=== PATIENT | female | born 1940 | race Caucasian/White ===

== ENCOUNTER 2023-09-17 10:59 | Outpatient (RCR) | payer OTHER, SELFPAY | END 2023-09-17 23:59 | disposition home or self-care (01) | LOC: ROT 10:59 | PROVIDERS: ATTENDING PHYSICIAN Orthopaedic Surgery Hand Surgery; PRIMARYCARE PHYSICIAN Family Medicine | DX: Z47.89 Encounter for other orthopedic aftercare (principal); M24.541 Contracture, right hand; Z73.6 Limitation of activities due to disability | CPT/HCPCS: 97010; 97018; 97110; 97140; 97535 ==

== ENCOUNTER → 2023-11-19 10:54 | Outpatient (REF) | payer OTHER, SELFPAY | LOC: RAD 10:54 | PROVIDERS: ATTENDING PHYSICIAN Student in an Organized Health Care Education/Training Program; FAMILY PHYSICIAN Family Medicine | DX: I65.23 Occlusion and stenosis of bilateral carotid arteries (principal); I65.03 Occlusion and stenosis of bilateral vertebral arteries | CPT/HCPCS: 93880 ==

== ENCOUNTER → 2023-12-01 10:10 | Outpatient (REF) | payer OTHER, SELFPAY | LOC: HWWDC 10:10 | PROVIDERS: ATTENDING PHYSICIAN Family Medicine | DX: Z12.31 Encounter for screening mammogram for malignant neoplasm of breast (principal) | CPT/HCPCS: 77063; 77067 ==

== ENCOUNTER → 2024-04-05 09:31 | Outpatient (REF) | payer OTHER, SELFPAY | LOC: HWRAD 09:31 | PROVIDERS: ATTENDING PHYSICIAN Family Medicine | DX: S16.1XXD Strain of muscle, fascia and tendon at neck level, subsequent encounter (principal); S39.012D Strain of muscle, fascia and tendon of lower back, subsequent encounter | CPT/HCPCS: 72050; 72110 ==

== ENCOUNTER → 2024-11-17 12:49 | Outpatient (REF) | payer OTHER, SELFPAY | LOC: HWRAD 12:49 | PROVIDERS: ATTENDING PHYSICIAN Student in an Organized Health Care Education/Training Program; FAMILY PHYSICIAN Family Medicine | DX: I65.23 Occlusion and stenosis of bilateral carotid arteries (principal) | CPT/HCPCS: 93880 ==

== ENCOUNTER → 2024-12-15 09:15 | Outpatient (REF) | payer OTHER, SELFPAY | LOC: HWRAD 09:15 | PROVIDERS: ATTENDING PHYSICIAN Specialist; FAMILY PHYSICIAN Family Medicine | DX: M25.562 Pain in left knee (principal) | CPT/HCPCS: 73564 ==

== ENCOUNTER → 2025-01-14 12:02 | Outpatient (REF) | payer OTHER, SELFPAY | LOC: MRI 3T 12:02 | PROVIDERS: ATTENDING PHYSICIAN Specialist; FAMILY PHYSICIAN Family Medicine; REFERRING PHYSICIAN Thoracic Surgery (Cardiothoracic Vascular Surgery) | DX: M54.16 Radiculopathy, lumbar region (principal); M51.360 Other intervertebral disc degeneration, lumbar region with discogenic back pain only | CPT/HCPCS: 72148 ==

== ENCOUNTER → 2025-02-19 11:16 | Outpatient (REF) | payer OTHER, SELFPAY | LOC: WDC 11:16 | PROVIDERS: ATTENDING PHYSICIAN Family Medicine | DX: Z12.31 Encounter for screening mammogram for malignant neoplasm of breast (principal) | CPT/HCPCS: 77063; 77067 ==

== ENCOUNTER → 2025-03-15 14:10 | Outpatient (REF) | payer OTHER, SELFPAY | LOC: HWRAD 14:10 | PROVIDERS: ATTENDING PHYSICIAN Specialist; FAMILY PHYSICIAN Family Medicine | DX: M25.512 Pain in left shoulder (principal) | CPT/HCPCS: 73030 ==

== ENCOUNTER 2025-03-23 06:13 | Inpatient (IN) | payer OTHER, SELFPAY ==
[2025-03-22 21:16] VITALS: BP 217/88
[2025-03-22 21:19] VITALS: BP 143/85
[2025-03-22 22:34] LABS: Hematocrit 33.7 % (37.0-47.0); Hemoglobin 11.8 g/dL (12.0-16.0); Mean Corp Hgb Conc. 35.0 g/dL (33.0-37.0); Mean Corpuscular Volume 87.5 fL (81.0-99.0); Nucleated Red Blood Cells % 0 %; Platelet Count 166 10^3/uL (130-400); Red Cell Dist. Width 11.9 % (11.5-14.5)
[2025-03-22 22:43] LABS: ALT (SGPT) 15 U/L (0-35); AST (SGOT) 18 U/L (14-36); Albumin 4.6 g/dl (3.5-5.0); Alkaline Phosphatase 70 U/L (38-126); Blood Urea Nitrogen 45 mg/dl (7-17); Calcium 10.4 mg/dl (8.4-10.2); Carbon Dioxide 30 mmol/L (22-30); Chloride 102 mmol/L (98-107); Glucose 142 mg/dl (70-99); Potassium 4.1 mmol/L (3.5-5.1); Sodium 139 mmol/L (135-145); Total Protein 7.5 g/dl (6.3-8.2); eGFR 40.30
[2025-03-22 22:44] VITALS: BMI 26.7
[2025-03-22 22:58] LABS: INR 0.97; PT 13.4 Sec (11.4-14.6)
[2025-03-22 22:59] LABS: Troponin I 0.048 ng/ml
[2025-03-22 23:00] VITALS: BP 210/61
[2025-03-22] MEDS: TRANDATE 20 MG IV (23:06)
[2025-03-22 23:27] VITALS: BP 186/63
[2025-03-22 23:30] VITALS: BP 179/53
--- NOTE | 2025-03-22 23:55 | ED.GENMED ---
History of Present Illness
General
Chief Complaint: Chest Pain
Time Seen by Provider: 03/22/25 22:35
History of Present Illness
History of Present Illness:
84-year-old female with history of hypertension, hyperlipidemia, aortic valve replacement presenting to the emergency department for chest pressure and high blood pressure. Patient reports that symptoms started last night, however worsened this
morning. Pain is in the center of her chest, denies any radiation. Checked her blood pressure today, noted that it was very high which is atypical for her. Notes compliance with her medications. Also reports some dyspnea with exertion, denies
any known history of heart failure. Reports some mild swelling to her lower extremities. Denies fever or cough. Denies abdominal pain or GI symptoms. Denies additional acute medical complaints
Past History
Past History
ED Past Medical History: HTN and Hypercholesterolemia
ED Past Surgical History: None
Phy Exam
Physical Exam
Physical Exam:
General: Well-appearing, no clinical signs of dehydration, nontoxic and in no acute distress
HEENT: protecting airway
Neck: appears supple
CV: Normal heart rate, regular rhythm
Resp: No accessory muscle use, no increased work of breathing, lungs clear to auscultation bilaterally
Abd: Soft and non-distended, no tenderness to palpation
Extremities: No deformities, mild swelling to lower extremities
Neuro: alert, no focal neurologic deficit
: deferred
Rectal: deferred
Psych: Normal affect
Skin: Intact
Scores
Heart Score for Chest Pain Patients
STEMI patient?: No
History: Moderately Suspicious
ECG: Nonspecific Repolarization
Age: >/= 65 years
Risk Factors: >/= 3 Risk Factors or History of CAD
Troponin: >1 - <3 x Normal Limit
Heart Score for Chest Pain Patients: 7
Heart Score Risk: 72.7 % MACE over next 6 weeks
Course
Orders/Labs/Results
Orders:
Orders
03/22/25 21:11
EKG [Electrocardiogram (*1)] Urgent
Reason for Study: Chest Pain
EKG- Treatment ONCE
03/22/25 22:24
Complete Blood Count/With Diff Urgent
Comprehensive Metabolic Panel Urgent
NT-proBNP Urgent
Comment: ADD ON
Prothrombin Time Urgent
Troponin I Urgent
03/22/25 22:59
Labetalol HCl [Trandate] 20 mg IV NOW STA
03/22/25 23:57
Add On- LAB Urgent
Tests Added?: pro-BNP
03/23/25
Ct Chest/Abd/Pel Angio W/Wo Iv Urgent
Reason For Exam: chest pressure, HTN, r/o dissection
03/23/25 00:36
EKG- Treatment ONCE
03/23/25 01:30
Electrocardiogram (*1) Urgent
Reason for Study: Chest Pain
03/23/25 01:35
Troponin I Urgent
03/23/25 02:24
PTT Urgent
Comment: Obtain baseline before beginning heparin infusion if not already collected
Heparin 3,800 units IV NOW STA
Nursing to Place Non Medication Order As Directed
Physician Order: PTT 6 hours after initial start of Heparin infusion
Above order entered?: Yes
03/23/25 02:26
Aspirin Chewable [Low Strength Aspirin] 324 mg PO NOW STA
03/23/25 02:30
Heparin 44569 Units/250 ml 25,000 units in 250 ml IV PER PROTOCOL
Weight to be used for heparin protocol in kilograms (kg):: 64
Protocol:: Cardiac Tx/Acute Coronary
PTT Goal Range to be used:: PTT 73 to 111 seconds
Order type:: Initial
INITIAL Infusion Dose (UNITS/KG/hr) & then follow protocol:: 12 units/kg/hr
Infusion Dose in UNITS/hr & then follow protocol (UNITS/hr):: 750
INFUSION RATE in mL/hr & then follow protocol (mL/hr):: 7.5
PTT less than or equal to 64 seconds:: Increase rate by 200 units/hr (+ 2 mL/hr)
PTT 64.1 to 72.9 seconds:: Increase rate by 100 units/hr (+ 1 mL/hr)
PTT 73 to 111 seconds:: Target Range. No change in rate.
PTT 111.1 to 130.9 seconds:: Decrease rate by 100 units/hr (- 1 mL/hr)
PTT 131 to 199.9 seconds:: HOLD for 1 hr. Then decrease rate by 200 units/hr (- 2 mL/hr)
PTT greater than or equal to 200 seconds:: HOLD for 2 hrs & Notify Provider. Then decrease by 200 units/hr (-
2 mL/hr)
Lab follow-up:: Each change, PTT q6h until 2 consecutive are therapeutic. Then PTT
daily.
03/23/25 09:00
PTT Urgent
Abnormal Lab Results
03/22/25 03/23/25
22:24 01:35
RBC 3.85 L 10^6/uL
(4.20-5.40)
Hgb 11.8 L g/dL
(12.0-16.0)
Hct 33.7 L %
(37.0-47.0)
MPV 10.6 H fL
(7.4-10.4)
Absolute Monos (auto) 0.7 H 10^3/uL
(0.1-0.6)
BUN 45 H mg/dl
(7-17)
Creatinine 1.3 H mg/dL
(0.6-1.0)
Glucose 142 H mg/dl
(70-99)
Calcium 10.4 H mg/dl
(8.4-10.2)
Troponin I 0.048 H* ng/ml 0.063 H* D ng/ml
03/22/25 22:24
03/22/25 22:24
Vital Signs
Initial and Last Documented VS:
Initial Vital Signs
Temp Pulse Resp BP Pulse Ox
98.6 F 73 16 217/88 96
03/22/25 21:16 03/22/25 21:16 03/22/25 21:16 03/22/25 21:16 03/22/25 21:16
Last Documented Vital Signs
Temp Pulse Resp BP Pulse Ox
98.6 F 58 15 179/48 96
03/22/25 21:16 03/23/25 02:45 03/23/25 02:45 03/23/25 02:30 03/23/25 02:45
MDM/Problems Addressed
MDM/Problems Addressed:
84-year-old female with history of hypertension, hyperlipidemia, aortic valve replacement presenting to the emergency department for chest pressure and dyspnea. Vital signs on arrival significant for marked hypertension.
On exam patient is resting comfortably, no acute distress. EKG shows T wave inversion, slightly more pronounced than prior EKG. Concerning story with cardiac risk factors, particularly in the setting of uncontrolled hypertension. Hypertensive
emergency is a consideration. Alerted by nursing that blood pressures are different in both arms. Aortic catastrophe is also consideration. Plan for laboratory analysis including troponin in the setting of ACS. Plan for CT chest abdomen pelvis
to rule out dissection. Labetalol administered for blood pressure control
02:20 -CT without evidence of dissection. Troponin is slightly elevated, and second troponin is further bumped. For this reason concern for NSTEMI. Starting heparin with plan for admission. Additionally, CT does show evidence of focal occlusion
to the right internal iliac artery, will likely need vascular consultation as well
*Pulse Oximetry
SaO2: 96
Oxygen Mode of Delivery: Room air
Patient hypoxic: no
*EKG
Interpreted by ED Provider?: Yes
EKG Intrepretation Date: 03/23/25
EKG Intrepretation Time: 00:00
Interpretation: abnormal
Comparison EKG: changes noted (02/23/23)
Heart Rate: 71
Rate: normal
Rhythm: sinus
[place]: left axis deviation
Interval: normal interval
QRS Pattern: left vent hypertrophy
Ischemia: T-wave inversion
*Critical Care Note
Total Time (30-74mins, 75-104mins- exclusive of procedures): 42
comment:
The high probability of a clinically significant, sudden or life threatening deterioration of the cardiovascular system(s), NSTEMI required my full and direct attention, intervention and personal management. The aggregate critical care time was 42
minutes. This time is in addition to time spent performing reported procedures but includes the following:
[x] Data Review and interpretation
[x] Patient assessment and monitoring of vital signs
[x] Documentation
[x] Medication orders and management
ED Attending Note
-
Portions of this chart may have been created with voice recognition software.� Occasional wrong word or��sound alike� substitutions may have occurred due to the inherent limitations of voice recognition software.
Discharge Plan
Departure
Patient Disposition: Admit
Date of Disposition: 03/23/25
Time of Disposition: 02:42
Presentation/result/management discussed w/ accepting MD/DO: Hospitalist
Patient with high blood pressure during this ER visit?: Yes
Condition: Fair
Discharge Problem:
Non-ST elevation [place] (NSTEMI), Hypertensive emergency
Prescriptions:
No Action
aspirin 81 MG tablet,chewable
81 mg PO DAILY
glucosamine sulfate 2KCl 1,000 MG tablet
1 tab PO DAILY
Caltrate 600-D Plus Minerals 1 EACH tablet,chewable
1 tab PO DAILY@1800
coenzyme Q10 200 MG capsule
200 mg PO DAILY@1200
fexofenadine [Ct] 180 MG tablet
180 mg PO DAILY@1200
ascorbic acid (vitamin C) [Vitamin C] 500 MG tablet
500 mg PO NOON
levothyroxine 50 MCG tablet
50 mcg PO DAILY
telmisartan 80 MG tablet
80 mg PO DAILY
hydrochlorothiazide 25 MG tablet
25 mg PO DAILY
multivitamin with folic acid [Tab-A-Majo] 1 TABLET tablet
1 tab PO DAILY
diltiazem malate 180 mg Tablet Extended Release 24 Hr
180 mg PO DAILY
rosuvastatin 5 mg Tablet
5 mg PO DAILY
Referrals:
Ted Rene DO [Family Provider, Family Practice]
Interventions
Interventions:
*Risk Screen - Suicide Last Done: 03/22/25 21:16
*General Assessment Last Done: 03/22/25 22:44
*Neglect/Abuse Screening Last Done: 03/22/25 21:16
*ED- Fall Risk Assessment Last Done: 03/23/25 01:34
*ED COVID-19 Vaccine History Last Done: 03/23/25 01:34
ED- Cardiac Assessment Last Done: 03/22/25 22:44
Discharge Date and Time
Print Language: VENEZUELAN
[2025-03-23] VITALS (57 sets, daily range): BP systolic 140–231; BP diastolic 39–99; BMI 26.6
[2025-03-23 02:23] LABS: Troponin I 0.063 ng/ml
[2025-03-23] MEDS: LOW STRENGTH ASPIRIN 324 MG PO (02:58)
[2025-03-23] MEDS: HEPARIN 25000 UNITS/250 ML IV (03:00)
[2025-03-23] MEDS: HEPARIN 3800 UNITS IV (03:01)
[2025-03-23 03:44] LABS: APTT 31.8 Sec (23.4-35.0)
--- NOTE | 2025-03-23 05:48 | HPS.HSE ---
Family Physician
-
Family Physician: Ted Rene
Chief Complaint
-
Chest pain
History of Present Illness
Patient is an 84y F with PMH significant for ASCVD, hypertension and CKD who presents to ED complaining of chest pain. Patient states that she noted some chest heaviness in the AM on . Her BP at that time was 170s systolic. She went
about her day, but noted increased pain this evening. BP at that time was 235/80 at home. She denies any associated SOB, diaphoresis or nausea. With persistent chest pain and elevated BP she presented to the ED for further evaluation.
Patient denies any prior h/o [place]. She does have documented vascular disease (carotid disease, PAD, prior TIA).
At the time of my examination she is chest pain free and resting comfortably.
Medical History
Past Medical History
Past Medical History: Reports Other
Additional Past Medical History:
ASCVD (Carotid stenosis, PAD, TIA)
Aortic Stenosis
Hypertension
CKD III
Hypothyroidism
GERD
Past Surgical History: Reports Other
Additional Past Surgical History:
Cataracts
Aortic Valve Replacement
Right Rotator Cuff Repair
HALEY
Appendectomy
Sinus Surgery
Social History
Tobacco: Non-smoker
Alcohol: Occasional
Drug: None
Family History
Family History: Other (Father: of [place] at age 71. Mother: of [place] at age 57.)
Allergies / Home Medications
Allergies reflects when Allergies were last updated in [employer].
Home Medications with original date entered in [employer]
Allergy/Medication List:
Allergies
Allergy/AdvReac Type Severity Reaction Status Date / Time
No Known Allergies Allergy Verified 03/22/25 21:18
Home Medications
aspirin 81 mg chewable tablet 81 mg PO DAILY 01/01/15
calcium 600 mg-D3 800 unit-mag 40 oi-jcgq-onkx-vega-boron chew tablet (Caltrate 600-D Plus Minerals) 1 tab PO DAILY@1800 01/01/15
coenzyme Q10 200 mg capsule 200 mg PO DAILY@1200 01/01/15
glucosamine sulfate 2KCl 1,000 mg tablet 1 tab PO DAILY 01/01/15
ascorbic acid (vitamin C) 500 mg tablet (Vitamin C) 500 mg PO NOON 01/29/22
fexofenadine 180 mg tablet (Ct) 180 mg PO DAILY@1200 01/29/22
hydrochlorothiazide 25 mg tablet 25 mg PO DAILY 01/29/22
levothyroxine 50 mcg tablet 50 mcg PO DAILY 01/29/22
multivitamin with folic acid 400 mcg tablet (Tab-A-Majo) 1 tab PO DAILY 01/29/22
telmisartan 80 mg tablet 80 mg PO DAILY 01/29/22
diltiazem malate 180 mg tablet,extended release 24 hr 180 mg PO DAILY 03/23/25
rosuvastatin 5 mg tablet 5 mg PO DAILY 03/23/25
Review of Systems
-
History Source: Patient
A 12 point ROS was completed and negative except as noted: Yes
Constitutional: Denies Fever or Chills
Respiratory: Denies Cough or Trouble Breathing
Cardiac: Reports Chest Pain; Denies Palpitations
Abdomen/GI: Denies Abdominal Pain, Nausea, Vomiting or Diarrhea
: Denies Dysuria or Frequency
Musculoskeletal: Denies Joint Pain or Edema
Neurological: Denies Dizzy or Headache
Physical Exam
Vital Signs
Vital Signs
Temp Pulse Resp BP Pulse Ox
98.6 F 56 13 178/58 93
03/22/25 21:16 03/23/25 04:00 03/23/25 04:00 03/23/25 04:00 03/23/25 04:00
Physical Exam
General: Other (84y F in no acute distress.)
HEENT: Moist mucous membranes and PERRLA
Respiratory: Clear; No Wheezes, Rales or Rhonchi
Cardiac: S1/S2, Regular Rhythm and Murmur (IV/ MARY)
GI: Soft, Non Tender, Non Distended and Normal Bowel Sounds
Musculoskeletal: No Clubbing, No Cyanosis and No Edema
Neuro: AO x 3
Laboratory Results
-
03/22/25 22:24
03/22/25 22:24
Laboratory Results
PT 13.4 Sec (11.4-14.6) 03/22/25 22:24
INR 0.97 03/22/25 22:24
APTT 31.8 Sec (23.4-35.0) 03/23/25 02:55
Total Bilirubin 0.6 mg/dl (0.2-1.3) 03/22/25 22:24
AST 18 U/L (14-36) 03/22/25 22:24
ALT 15 U/L (0-35) 03/22/25 22:24
Alkaline Phosphatase 70 U/L (38-126) 03/22/25 22:24
Troponin I 0.063 ng/ml H* D 03/23/25 01:35
Impression/Plan
-
A/P: Patient is an 84y F with PMH significant for ASCVD, CKD and hypertension who presents to ED complaining of chest pain and hypertension.
Hypertensive Emergency
- Admit to IMU for further evaluation and treatment.
- Patient with markedly elevated BP, abnormal troponin and chest pain.
- Begin IV NTG and titrate for BP control.
- Follow for changes in symptoms.
- Continue usual home meds and adjust as needed.
ASCVD
- EKG with non-specific ST-T wave changes.
- Troponin 0.048 increased to 0.063. Now chest pain free.
- Follow troponin to peak.
- Potentially all due to BP, but need to rule out occlusive CAD given known history.
- IV heparin for now.
- Cardiology evaluation for additional recommendations.
CKD III
- Stable. SCr is at / near known baseline.
- Follow for changes.
DVT Prophylaxis: On IV heparin
Code Status: Full
--- NOTE | 2025-03-23 08:27 | EDRN ---
Report given to NIC Maharaj in ICU. Patient taken to room 3362 on monitor with Heparin drip infusing at 750 units/HR by ED RN. Family with patient.
[2025-03-23] MEDS: SYNTHROID 50 MCG PO (08:53)
[2025-03-23] MEDS: NITROGLYCERIN PREMIX 250 IV (08:54)
[2025-03-23] MEDS: CARDIZEM CD 180 MG PO (09:01)
[2025-03-23] MEDS: COZAAR 100 MG PO (09:02)
[2025-03-23] MEDS: CRESTOR 5 MG PO (09:02)
[2025-03-23] MEDS: LOW STRENGTH ASPIRIN 81 MG PO (09:02)
--- NOTE | 2025-03-23 09:25 | PTCARENOTE ---
Rec'd pt from the Ed via stretcher at 0835. Rec'd pt awake alert and oriented. Overall states she feels better. Denies headache or dizziness. Denies pain or discomfort. VILLARREAL. Speech is clear. Skin is orellana/pink wm and dry. Respirs are unlabored on RA
with sats of 94-95%. BS are clear. Monitor SR- SBrady in the 50-60's. Denies chest pain or tightness. + pulses. PT and DP pulses with the doppler. Tr ankle/le edema. VS as documented. BP L arm on admission is 184/94 and R arm 231/73. Per pt -
nephrology told her to use the R arm for BP's. As such Am Cozaar and Cardizem given at 0902. IV Nitroglycerin ordered and started at 0855 at 5 mcg with goal BP of <160. Infusing via L wrist IV site along with IV Heparin at 750 units/hr. Labs sent
as ordered. Abd is soft with + BS. Denies nausea. Currently NPO excepts sips and meds. On BSC for yellow urine. Capped int intact LAC. Site wnl. Daughters at the bedside. Pt oriented to room and plan of care reviewed with pt and family. Call renner in
reach.
[2025-03-23 09:42] LABS: APTT 86.0 Sec (23.4-35.0)
[2025-03-23 10:02] LABS: Troponin I 0.054 ng/ml
--- NOTE | 2025-03-23 10:30 | PTCARENOTE ---
At 1000 Nitro at 10 mcg for BP 180/71. Dr. Duvall in and updated. Will titrate NTG for Bp 160-180. No other changes.
--- NOTE | 2025-03-23 11:45 | PTCARENOTE ---
Dr. Duvall in to see pt. Goal BP is 160-180 - BP currently 163/57- IV NTG turned off. No complaints offered. Visting with family
--- NOTE | 2025-03-23 11:51 | CON.CAR ---
Consultation
Consultation Request
Date/Time Consultation Requested: 03/23/25
Date/Time Consultation Performed: 03/23/25
Requesting Provider: Dr. Up
Performing Provider: Dr Gandara (Primary cardiology [facility])
Reason for Consultation: htn and cp
Medical History
-
Chief Complaint: cp and high bp
History of Present Illness:
84-year-old female with a past medical history of PAD, TIA, [place], aortic stenosis s/p AVR at [facility] in 2014, hypertension, CKD 3 and GERD presented for evaluation of chest pain and HTN. Patient reports that she has been checking bp at home on the left
arm. She recently saw Dr Mcconnell who detected unequal arm BPs and she was told stop checking on theleft arm and only on the right. She noted markedly elevated blood pressure at home at 235/80. With this she had a mild chest pressure. Given
persistent chest pain and elevated blood pressure she presented for evaluation. She was admitted for hypertensive emergency and possible ACS. She was appropriately started on a heparin drip and nitroglycerin drip. CP is no longer present while off
nitro gtt and bp improved to 160's. Troponin peaked at 0.063.
Past Medical History
Past Medical History: GERD, HTN, Renal Failure and Other (TIA, carotid stenosis )
Social History
Tobacco: Non-Smoker
Alcohol: None
Family History
Family History: Early CAD (Mom DC at 57)
Allergies / Home Medications
Allergy/AdvReac Type Severity Reaction Status Date / Time
No Known Allergies Allergy Verified 03/22/25 21:18
�Medication �Instructions �Recorded �Confirmed �Type
aspirin 81 mg chewable tablet 81 mg PO DAILY 01/01/15 03/23/25 History
calcium 600 mg-D3 800 unit-mag 40 1 tab PO DAILY@1800 01/01/15 03/23/25 History
sv-xdtg-nbys-vega-boron chew
tablet (Caltrate 600-D Plus
Minerals)
coenzyme Q10 200 mg capsule 200 mg PO DAILY@1200 01/01/15 03/23/25 History
glucosamine sulfate 2KCl 1,000 mg 1 tab PO DAILY 01/01/15 03/23/25 History
tablet
ascorbic acid (vitamin C) 500 mg 500 mg PO NOON 01/29/22 03/23/25 History
tablet (Vitamin C)
fexofenadine 180 mg tablet 180 mg PO DAILY@1200 01/29/22 03/23/25 History
(Ct)
hydrochlorothiazide 25 mg tablet 25 mg PO DAILY 01/29/22 03/23/25 History
levothyroxine 50 mcg tablet 50 mcg PO DAILY 01/29/22 03/23/25 History
multivitamin with folic acid 400 1 tab PO DAILY 01/29/22 03/23/25 History
mcg tablet (Tab-A-Majo)
telmisartan 80 mg tablet 80 mg PO DAILY 01/29/22 03/23/25 History
diltiazem malate 180 mg 180 mg PO DAILY 03/23/25 03/23/25 History
tablet,extended release 24 hr
rosuvastatin 5 mg tablet 5 mg PO DAILY 03/23/25 03/23/25 History
Review of Systems
-
All other systems: Negative unless noted
Physical Exam
Vital Signs
Temp Pulse Resp BP Pulse Ox
98.7 F 62 12 180/71 93
03/23/25 11:31 03/23/25 10:00 03/23/25 10:00 03/23/25 10:00 03/23/25 10:00
Lab Results
03/22/25 22:24
03/22/25 22:24
Troponin I 0.054 ng/ml H* 03/23/25 09:21
Rvw-Q-Xlffapbzrie Pept Cancelled 03/22/25 23:56
Physical Exam
General: Well Developed, Well Nourished, No Apparent Distress and Comfortable
HEENT: Normocephalic
Respiratory: Clear; Negative Wheezes, Crackles or Rhonchi
Cardiac: S1/S2, Regular Rhythm, Murmur (2/6 systolic murmur at rusb in the neck. ) and Other (bruit along the left clavicle none on the right)
Skin: Warm and Dry
Neuro: AO x 3
Impression / Plan
-
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
recently saw Dr. Lindsey who suspects left-sided subclavian artery stenosis presented with hypertensive emergency.
Hypertensive emergency:
This is a threat to life
This improved with nitroglycerin drip, oral diltiazem, oral losartan and a single dose of IV labetalol.
Nitroglycerin drip has been stopped.
Currently blood pressure 160s, this is improved from 225 yesterday.
Will continue to monitor today and add additional agents as needed. Home hydrochlorothiazide ordered for tomorrow.
Do not want to overcorrect too quickly.
Check blood pressures in the right arm, given concern of left subclavian stenosis.
Chest pain: Symptom of hypertensive emergency. Troponin peaked at 0.063. She is not having any angina. Do not suspect ACS, will stop IV heparin especially given the risk with hypertensive emergency.
�That said she is a vasculopath, would recommend noninvasive testing as an outpatient.
Nonischemic myocardial injury in the setting of hypertensive emergency:
Treat hypertensive emergency.
Peripheral arterial disease: Carotid stenosis, renal artery stenosis, occluded iliac
Question subclavian stenosis on the left: I have asked radiology to review the study from earlier today and assess. Interestingly, carotid ultrasound in October showed antegrade flow in the vertebral arteries.
- Would be more aggressive with secondary prevention (report of TIA)
-Will check a lipid profile
-Will likely intensify statin
CKD: Stage III, follows with Dr. Mcconnell.
CCT 57 minutes
Data Reviewed
-
EKG: Tracing Personally Visualized and interpreted (EKG shows normal sinus rhythm left anterior fascicular block, LVH with strain and left axis deviation.)
CT Scan: Image Personally Visualized and interpreted (CT C?A?P: high-grade stenosis at the ostium of the left renal artery with an atrophic left kidney. 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 There is occlusion
of the mid right internal iliac artery. Cerebral u/s 11/17/24Rt moderate [place], normal vertebral flow b/l)
Medical Tests (Nuc Med, Echo etc): Report Reviewed by me (Cath 01/02/2015, ao 158/60 LV 182/18 with a mean gradient of 42 concerning for severe aortic stenosis, coronary angiography showed mild distal tapering of the LAD without focal area of
stenosis.)
[2025-03-23 12:30] LABS: Glycohemoglobin (HgbA1c) 6.0 % (4.0-5.6)
--- NOTE | 2025-03-23 13:13 | W.CON.NEPH ---
Addendum entered and electronically signed by Alvin Morrison MD 03/23/25 15:22:
Consultation below reviewed.
84-year-old female met with Dr. Mcconnell for the first time on 04-13 for hypertension. She was noted to have asymmetric blood pressure readings right versus left with the right greater than the left. It was recommended at that time for her to take
blood pressure only on the right side. She maintained her multidrug regimen for her hypertension. When she checked her blood pressure more recently it was found to be elevated over 200 systolic and she also had concurrent chest pressure. She came
to the emergency room for hypertensive emergency. She was given intravenous medications and ultimately nitroglycerin drip though she was only on this for 1 hour. It was discontinued because her blood pressure had fallen to 140 systolic. Is now
running 186 systolic at this time. She remains on statin therapy for diffuse significant atherosclerotic cardiovascular disease though fortunately stable. She is also on Synthroid for hypothyroidism which is also stable.
Imaging studies have shown significant left renal artery stenosis as well as diffuse arterial disease.
I concur with the physical exam.
Older laboratory values were reviewed in the [facility] system. Creatinine has remained stable around 1.3 based on past labs as well.
CT of the chest abdomen pelvis with IV contrast was reviewed by me. High-grade stenosis of the left renal artery was noted.
Impression
Hypertensive emergency
Chronic kidney disease stage IIIa
Troponin elevation
Carotid stenosis
PAD
History of TIA
Severe Aortic Stenosis s/p replacement
Primary hypertension
Hypothyroidism
GERD
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
Plan
Permissive hypertension today
Close at lower goal for blood pressure closer to 160 systolic tomorrow
As needed medications with hydralazine and labetalol
Change losartan to valsartan, may return to telmisartan as an outpatient
May use additional diltiazem if necessary.
Secondary workup will be ordered though I expect it to be negative outside of obvious left renal artery stenosis
Unfortunately given significant atherosclerotic cardiovascular disease I doubt that renal artery stenting of the left side would be beneficial as she probably has small vessel disease as well in the kidney
Follow BMP
Critical care time spent 35 minutes
Original Note:
Consultation
-
Date/Time Consultation Requested: 03-23-25
Date/Time Consultation Performed: 03-23-25
Requesting Provider: Dr. Varun Up
Performing Provider: Dr. Alvin Morrison
Reason for Consultation: Hypertensive emergency; CKD
Medical History
-
Chief Complaint: Chest pressure and high blood pressure
History of Present Illness:
Chelsea Macias, 84-year-old with chronic kidney disease stage IIIa, left renal atrophy and hypertension, came to the hospital on 03-22-25 with chest pressure and high blood pressure at home of 235/80. She was found to be in hypertensive emergency
and given labetalol in the emergency. Started on a nitroglycerine drip in the ICU. She is known to nephrology and had recently established with Dr. Mcconnell on 03-21-25. She has a history of hypertension since her 50s, treated with a multi-drug
regimen, which has remained unchanged for the past few years. She was also recently found to have blood pressure reading discrepancies in her arms; right > left. Renal function at baseline on admission, and reports chest pressure resolution.
Asymptomatic at the time of consultation.
Past Medical History
Past Medical History: Other (Carotid stenosis, PAD, TIA, severe Aortic Stenosis, Hypertension, CKD IIIa, Hypothyroidism, GERD)
Past Surgical History: Other (Cataracts, Aortic Valve Replacement, Right Rotator Cuff Repair, HALEY, Appendectomy, Sinus Surgery)
Social History
Tobacco: Non-Smoker
Alcohol: Occasional
Drug: None
Employment: Retired
Family History
Family History: CAD (Mother - of early-ID at 57; Father - of ID at 71)
Allergies / Home Medications
Allergy/AdvReac Type Severity Reaction Status Date / Time
No Known Allergies Allergy Verified 03/22/25 21:18
�Medication �Instructions �Recorded �Confirmed �Type
aspirin 81 mg chewable tablet 81 mg PO DAILY 01/01/15 03/23/25 History
calcium 600 mg-D3 800 unit-mag 40 1 tab PO DAILY@1800 01/01/15 03/23/25 History
ko-hkdt-tncb-vega-boron chew
tablet (Caltrate 600-D Plus
Minerals)
coenzyme Q10 200 mg capsule 200 mg PO DAILY@1200 01/01/15 03/23/25 History
glucosamine sulfate 2KCl 1,000 mg 1 tab PO DAILY 01/01/15 03/23/25 History
tablet
ascorbic acid (vitamin C) 500 mg 500 mg PO NOON 01/29/22 03/23/25 History
tablet (Vitamin C)
fexofenadine 180 mg tablet 180 mg PO DAILY@1200 01/29/22 03/23/25 History
(Ct)
hydrochlorothiazide 25 mg tablet 25 mg PO DAILY 01/29/22 03/23/25 History
levothyroxine 50 mcg tablet 50 mcg PO DAILY 01/29/22 03/23/25 History
multivitamin with folic acid 400 1 tab PO DAILY 01/29/22 03/23/25 History
mcg tablet (Tab-A-Majo)
telmisartan 80 mg tablet 80 mg PO DAILY 01/29/22 03/23/25 History
diltiazem malate 180 mg 180 mg PO DAILY 03/23/25 03/23/25 History
tablet,extended release 24 hr
rosuvastatin 5 mg tablet 5 mg PO DAILY 03/23/25 03/23/25 History
Review of Systems
-
History Source: Patient
All other systems: Negative unless noted
Constitutional: No Symptoms
EENT: No Symptoms
Respiratory: No Symptoms
Cardiac: No Symptoms
Abdomen/GI: No Symptoms
: No Symptoms
Musculoskeletal: No Symptoms
Skin: No Symptoms
Neurological: No Symptoms
Endocrine: No Symptoms
Hematologic/Lymphatic: No Symptoms
Physical Exam
Vital Signs
Vital Signs
Temp Pulse Resp BP Pulse Ox
98.7 F 68 16 152/66 93
03/23/25 11:31 03/23/25 12:30 03/23/25 12:30 03/23/25 12:15 03/23/25 12:00
Lab Results
WBC 7.8 10^3/uL (4.8-10.8) 03/22/25 22:24
RBC 3.85 10^6/uL (4.20-5.40) L 03/22/25 22:24
Hgb 11.8 g/dL (12.0-16.0) L 03/22/25 22:24
Hct 33.7 % (37.0-47.0) L 03/22/25 22:24
Plt Count 166 10^3/uL (130-400) 03/22/25 22:24
Sodium 139 mmol/L (135-145) 03/22/25 22:24
Potassium 4.1 mmol/L (3.5-5.1) 03/22/25 22:24
Chloride 102 mmol/L (98-107) 03/22/25 22:24
Carbon Dioxide 30 mmol/L (22-30) 03/22/25 22:24
BUN 45 mg/dl (7-17) H 03/22/25 22:24
Creatinine 1.3 mg/dL (0.6-1.0) H 03/22/25 22:24
eGFR 40.30 03/22/25 22:24
Glucose 142 mg/dl (70-99) H 03/22/25 22:24
Calcium 10.4 mg/dl (8.4-10.2) H 03/22/25 22:24
Ipf-M-Vtzhiisrzxl Pept Cancelled 03/22/25 23:56
Albumin 4.6 g/dl (3.5-5.0) 03/22/25 22:24
Physical Exam
General: Awake, Alert, Oriented and No Distress
HEENT: Anicteric
Respiratory: Clear and Nonlabored Respirations
Cardiac: S1/S2, Regular Rate/Rhythm and Murmur (MARY - III/)
Abdomen: Soft, Nontender, Nondistended and No Hepatosplenomegaly
Genito-urinary: No Costovertebral Tender
Musculoskeletal: No Clubbing, No Cyanosis and No Edema
Skin: No Rash and No Bruising
Neuro: Nonfocal/Grossly Intact
Psych: Insight/judgement good
Assessment/Plan
-
Impression
Hypertensive emergency
Chronic kidney disease stage IIIa
Troponin elevation
Carotid stenosis
PAD
History of TIA
Severe Aortic Stenosis s/p replacement
Primary hypertension
Hypothyroidism
GERD
Plan
Renal function remains at baseline.
Permissive hypertension for a goal of SBP 160-180 for now.
PRN labetalol/hydralazine for SBP > 190.
Switch losartan to valsartan; better potency/closer to telmisartan.
Continue diltiazem and hydrochlorothiazide.
Check renal artery Doppler, renin/marvin and metanephrines.
Follow BMP.
Please use only the right arm for BP measurements.
--- NOTE | 2025-03-23 14:07 | W.PN.HOSP.TC ---
Today's Communication/Plan
-
wean off ggt
renal arterial dopplers - may need vascular consulted
renal consulted for assistance in htn regimen
ECHO
stop hep ggt, start hsq
Assessment / Plan
Assessment / Plan
Physical Exam
General: Other (84y F in no acute distress.)
HEENT: Moist mucous membranes and PERRLA
Respiratory: Clear; No Wheezes, Rales or Rhonchi
Cardiac: S1/S2, Regular Rhythm and Murmur (IV/ MARY)
GI: Soft, Non Tender, Non Distended and Normal Bowel Sounds
Musculoskeletal: No Clubbing, No Cyanosis and No Edema
Neuro: AO x 3
A/P: Patient is an 84y F with PMH significant for ASCVD, CKD and hypertension who presents to ED complaining of chest pain and hypertension.
Hypertensive Emergency
- Suspect 2/2 to high grade stenosis of the left renal artery
- -Renal Dopplers ordered
- Placed back on Dilt and HCTZ, cozaar
- ARB as per renal
- Renal consulted
- May need to engage vascular - f/u with Renal
-F/u ECHO
-F/u TFTs
Elevated Troponin
-most likely non ischemic myocardial injury 2/2 to hypertensive emergency
-stopped hep ggt
-continue asa
-ECHO
-statin
CKD III
- Stable. SCr is at / near known baseline.
- Follow for changes.
- Renal consulted
#extensive mixed density atherosclerotic plaque of the abdominal aorta.
#prominent noncalcified atherosclerotic plaque of the thoracic aorta with resultant multifocal mild stenosis.
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
- Vascular consulted
DVT Prophylaxis: HSQ
Code Status: Full
Total time spent on today's encounter was 51 minutes which included time spent in counseling the patient/family regarding diagnosis and treatment plan as listed above, goals of care, and symptom management. Case was discussed with nursing staff,
specialists, and care coordinators/case management. All labs and imaging personally reviewed by me. Remainder the time spent in detailed review of previous records, lab data, imaging, and other medical provider documentation.
Anticipated Discharge: 24 - 48 hours
Subjective/Interval History
-
Date of Service: March 23, 2025
chest pressure resolved; bp improving with nitro ggt and bp meds
Objective Data
-
Labs:
Laboratory Results
03/22/25 03/23/25 03/23/25
22:24 02:55 09:21
WBC 7.8
Hgb 11.8 L
Hct 33.7 L
Plt Count 166
APTT 31.8 86.0 H
03/23/25
15:30
WBC
Hgb
Hct
Plt Count
APTT Pending
Vital Signs:
Vital Signs
Temp Pulse Resp BP Pulse Ox
98.7 F 68 16 152/66 93
03/23/25 11:31 03/23/25 12:30 03/23/25 12:30 03/23/25 12:15 03/23/25 12:00
I&O
03/22/25 03/23/25 03/24/25
06:59 06:59 06:59
Intake Total 140.6 / 140.6
Output Total 300 / 300
Balance -159.4 / -159.4
Review of Systems
-
History Source: Patient
All other systems: Not reviewed unless documented
Data Reviewed
-
CT Scan: Report Reviewed by me
Labs: Labs Reviewed by me
--- NOTE | 2025-03-23 14:40 | PTCARENOTE ---
Pt with overall good appetite for lunch. Denies discomfort. Assisted oob to the bathroom to void yellow urine. Did own oral/denture care. Currently resting back in bed. BP 186/54- Dr. Morrison in to see pt and aware of BP -will watch for now. NTG drip
remains off. Call renner in reach. Family at the bedside.
--- NOTE | 2025-03-23 15:00 | PTCARENOTE ---
Labs sent per md order. Heparin gtt dc'd per md order. No other changes
[2025-03-23] MEDS: HEPARIN 5000 UNITS SC (16:56)
--- NOTE | 2025-03-23 17:21 | PTCARENOTE ---
Remains resting. No changes in assessment. No complaints.
[2025-03-23] MEDS: APRESOLINE 10 MG IV (18:20)
[2025-03-23] MEDS: FLUSH (NSS) 1 FLUSH IV (18:21)
--- NOTE | 2025-03-23 18:25 | PTCARENOTE ---
Good appetite for dinner. Bp syst 191 at 1800 - pt medicated with Hydralazine 10 mg IV at 1820. No other changes.
--- NOTE | 2025-03-23 19:30 | PTCARENOTE ---
OOb to the bathroom to void and had a mod formed brown BM. Gait is steady with no c/o dizziness. Bp post hydralazine 174 syst and then currently 187 syst. Currently resting back in bed.
--- NOTE | 2025-03-23 20:33 | PTCARENOTE ---
Received patient AAOx3, following commands, denying pain. NS 60s, BP 150s/40s, afebrile, no edema. Weak pedal pulses b/l. BP on right arm higher than left, following recommendation to take BP on right by Dr. Unger. 95% on room air, lung sounds
clear. Patient uses commode. Skin intact, PIVs patent, WNL. Call renner within reach.
[2025-03-24] VITALS (37 sets, daily range): BP systolic 111–200; BP diastolic 34–74; BMI 26.4
[2025-03-24] MEDS: HEPARIN 5000 UNITS SC ×4 (00:13→23:44)
[2025-03-24 03:48] LABS: Hematocrit 31.6 % (37.0-47.0); Hemoglobin 10.8 g/dL (12.0-16.0); Mean Corp Hgb Conc. 34.2 g/dL (33.0-37.0); Mean Corpuscular Volume 89.8 fL (81.0-99.0); Platelet Count 158 10^3/uL (130-400); Red Cell Dist. Width 12.0 % (11.5-14.5)
[2025-03-24 04:17] LABS: ALT (SGPT) 14 U/L (0-35); AST (SGOT) 21 U/L (14-36); Albumin 4.1 g/dl (3.5-5.0); Alkaline Phosphatase 66 U/L (38-126); Blood Urea Nitrogen 38 mg/dl (7-17); Calcium 10.0 mg/dl (8.4-10.2); Carbon Dioxide 26 mmol/L (22-30); Chloride 106 mmol/L (98-107); Estimated Creatinine Clearance 29 ml/min; Glucose 155 mg/dl (70-99); HDL Cholesterol 70 mg/dl; LDL Cholesterol, Calculated 63 mg/dl; Magnesium 2.0 mg/dl (1.6-2.3); Potassium 4.3 mmol/L (3.5-5.1); Sodium 139 mmol/L (135-145); Total Protein 6.6 g/dl (6.3-8.2); Very Low Density Lipoprotein 16 mg/dl (0-30); eGFR 44.36
[2025-03-24] MEDS: SYNTHROID 50 MCG PO (05:08)
[2025-03-24] MEDS: CARDIZEM CD 180 MG PO (08:02)
[2025-03-24] MEDS: LOW STRENGTH ASPIRIN 81 MG PO (08:02)
[2025-03-24] MEDS: DIOVAN 320 MG PO (08:03)
[2025-03-24] MEDS: CRESTOR 5 MG PO (08:04)
[2025-03-24] MEDS: ORETIC 25 MG PO (08:05)
--- NOTE | 2025-03-24 08:31 | W.PN.CD ---
Addendum entered and electronically signed by Boris Begum MD 03/24/25 12:06:
Patient seen and examined in collaboration with REAL ESTATE TRANSACTION MANAGER; agree with below.
- 84-year-old female with bioprosthetic aortic valve (2024), PVD, hypertension, hyperlipidemia, and CKD presenting with hypertensive crisis.
- Blood pressure remains mildly elevated/labile.
- Hydrochlorothiazide being resumed today.
- Continue diltiazem HCl 180 mg daily and valsartan 320 mg daily.
- Echocardiogram on Wednesday.
Original Note:
Today's Communication / Plan
-
Follow BP.
SBP pre am meds ~190mmHg
Impression / Plan
-
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
CKD who recently saw Dr. Mcconnell who suspects left-sided subclavian artery stenosis presented with hypertensive emergency.
Outpatient city editor: Dr. Miranda
Hypertensive emergency:
-This is a threat to life
-Current meds: Dilt 180mg, Valsartan 320mg & home HCTZ 25mg ordered for today
-Do not want to overcorrect too quickly. SBP above goal.
-Check blood pressures in the right arm, given concern of left subclavian stenosis.
-High-grade stenosis at the ostium of the left renal artery with an atrophic left kidney
-Secondary workup pending, ordered by Nephrology
Chest pain
-Symptom of hypertensive emergency
-Troponin peaked at 0.063. She is not having any angina. Do not suspect ACS, will stop IV heparin especially given the risk with hypertensive emergency.
�That said she is a vasculopath, would recommend noninvasive testing as an outpatient.
-TTE Wednesday
Nonischemic myocardial injury in the setting of hypertensive emergency:
-Peak trop 0.063, EKG with LVH
-Treat hypertensive emergency.
Peripheral arterial disease: Carotid stenosis, renal artery stenosis, occluded iliac
-Question subclavian stenosis on the left. Radiology will re-review the study today. Interestingly, carotid ultrasound in October showed antegrade flow in the vertebral arteries.
-Would be more aggressive with secondary prevention (report of TIA)
-LDL 63, increase rosuvastatin to 10mg
CKD Stage III, follows with Dr. Mcconnell
SUBJECTIVE:
Denies CP and shortness of breath.
Physical Exam
Vital Signs/Labs
Vital Signs
Temp Pulse Resp BP Pulse Ox
98 F 70 17 193/73 94
03/24/25 03:39 03/24/25 08:05 03/24/25 06:30 03/24/25 08:05 03/24/25 06:30
03/23/25 03/24/25 03/25/25
06:59 06:59 06:59
Actual Weight 64 kg 63.4 kg
03/24/25 03:36
03/24/25 03:36
PT 13.4 Sec (11.4-14.6) 03/22/25 22:24
INR 0.97 03/22/25 22:24
APTT Cancelled 03/23/25 15:30
Magnesium 2.0 mg/dl (1.6-2.3) 03/24/25 03:36
Triglycerides 84 mg/dl (10-149) 03/24/25 03:36
LDL Cholesterol, Calc 63 mg/dl 03/24/25 03:36
VLDL Cholesterol, Calc 16 mg/dl (0-30) 03/24/25 03:36
HDL Cholesterol 70 mg/dl 03/24/25 03:36
03/22/25 03/22/25
22:24 23:56
Dur-O-Rlvuwanvkdk Pept 2280 Cancelled
LAB Results
03/22/25 03/23/25 03/23/25
22:24 01:35 09:21
Troponin I 0.048 H* 0.063 H* D 0.054 H*
03/23/25 03/23/25
14:28 20:28
Troponin I Cancelled Cancelled
Physical Exam
Constitutional: No acute distress and Comfortable
EENT: Anicteric and Moist mucous membranes
Cardiovascular: Rhythm & rate is regular and Pedal edema is absent
Respiratory: Respiratory effort normal and Lungs clear to auscul.
GI: Soft, Distention absent, Flat and Non tender
Neuro/Psych: AO x 3
Other: Skin (warm and dry)
Data Reviewed
-
Date of Service: March 24, 2025
EKG: Report Reviewed by me
Labs: Labs Reviewed by me
Old Records: Reviewed
--- NOTE | 2025-03-24 08:44 | W.PN.NEPH.PH ---
Today's Communication / Plan
-
follow BMP
Assessment/Plan
-
Impression
Hypertensive emergency
Chronic kidney disease stage IIIa
Troponin elevation
Carotid stenosis
PAD
History of TIA
Severe Aortic Stenosis s/p replacement
Primary hypertension
Hypothyroidism
GERD
Plan
continue BP meds, may need diltizem 180 BID
follow BMP
secondary HTN workup
-
-
Date of Service: March 24, 2025
CC / HPI / ROS
-
Chief Complaint:
HTN
History of Present Illness:
BP high this am, overall stable
Cr stable 1.3
Hgb stable 10.8
Review of Systems:
no CP/SOB
Labs
-
Labs:
WBC 6.8 10^3/uL (4.8-10.8) 03/24/25 03:36
RBC 3.52 10^6/uL (4.20-5.40) L 03/24/25 03:36
Hgb 10.8 g/dL (12.0-16.0) L 03/24/25 03:36
Hct 31.6 % (37.0-47.0) L 03/24/25 03:36
Plt Count 158 10^3/uL (130-400) 03/24/25 03:36
Sodium 139 mmol/L (135-145) 03/24/25 03:36
Potassium 4.3 mmol/L (3.5-5.1) 03/24/25 03:36
Chloride 106 mmol/L (98-107) 03/24/25 03:36
Carbon Dioxide 26 mmol/L (22-30) 03/24/25 03:36
BUN 38 mg/dl (7-17) H 03/24/25 03:36
Creatinine 1.2 mg/dL (0.6-1.0) H 03/24/25 03:36
eGFR 44.36 03/24/25 03:36
Glucose 155 mg/dl (70-99) H 03/24/25 03:36
Calcium 10.0 mg/dl (8.4-10.2) 03/24/25 03:36
Pjm-W-Jjshgufrtlz Pept Cancelled 03/22/25 23:56
Albumin 4.1 g/dl (3.5-5.0) 03/24/25 03:36
Physical Exam
-
Vital Signs:
Vital Signs
Temp Pulse Resp BP Pulse Ox
98 F 60 12 170/61 95
03/24/25 03:39 03/24/25 08:36 03/24/25 08:36 03/24/25 08:36 03/24/25 07:30
Cardiovascular:: Regular rate and rhythm
Respiratory:: Bilateral: CTA
Lung Excursion:: Normal
Abdomen:: Nontender and Soft
Bowel Sounds:: Normal
Extremity Edema:: None: Bilateral:
--- NOTE | 2025-03-24 08:50 | PTCARENOTE ---
Rec'd pt at 0745 awake alert and oriented resting in bed. States she feels good and did get some sleep last night. Denies any pain currently. Speech is clear. Denies any headache or dizziness. VILLARREAL. Skin is orellana/pink wm and dry. Respirs are unlabored
on RA with sats of 95%. BS are clear. No cough noted. Monitor SR. VS as documented. After doing am care BP 193/73- all am meds given. Using R arm for BP's per pt and nephrology. + pulses. PT and DP pulses with the doppler. No edema noted this am.
Denies chest pain. Extrem are warm. Abd is soft with + BS. Denies nausea. Voiding yellow urine in the toilet. Capped ints intact L wrist and L AC. Assited to the bathroom this am- pt mostly ambulated herself without difficulty. States she normally
is an early riser and uses her stationary bike at home. Did own am care and oral care. Currently resting oob in the chair. Awaitig breakfast. Call renner in reach.
--- NOTE | 2025-03-24 09:25 | PTCARENOTE ---
Dr. Morrison in to see pt as well as Kirstie Dewey CLINICAL ENGINEERING DIRECTOR from Cardiology. Multiple labs sent as ordered. Remains resting oob in the chair. Call renner in reach
--- NOTE | 2025-03-24 11:00 | CON.VAS ---
Consultation
Consultation Request
Date/Time Consultation Performed: 03/24/25 11am
Performing Provider: Linda
Reason for Consultation: Right internal iliac artery occlusion
Medical History
-
Chief Complaint: High blood pressure
History of Present Illness:
84-year-old female with past medical history significant for ASCVD, hypertension, CKD, carotid stenosis, TIA, PAD, MD admitted through the emergency room for management of hypertensive crisis.
CT reviewed - appears to have chronic right internal iliac occlusion. Left patent diffuse atherosclerotic disease throughout.
Vascular consult for CT findings. Patient seen at bedside this a.m.
Patient denies pain in her legs or abdomen. Denies claudication symptoms. Denies nausea/vomiting. +2 bilateral femoral pulses. Bilateral feet are warm.
Past Medical History
Past Medical History: Other (ASCVD, carotid stenosis, PAD, TIA, AAS, hypertension, CKD 3, hypothyroidism, GERD)
Past Surgical History: Other (Cataracts, aortic valve replacement, right rotator cuff repair, HALEY, appendectomy, sinus surgery)
Social History
Tobacco: Non-Smoker
Alcohol: Occasional
Drug: None
Family History
Family History: CAD
Allergies / Home Medications
Allergy/AdvReac Type Severity Reaction Status Date / Time
No Known Allergies Allergy Verified 03/22/25 21:18
�Medication �Instructions �Recorded �Confirmed �Type
aspirin 81 mg chewable tablet 81 mg PO DAILY Blood Clot 01/01/15 03/23/25 History
Prevention/Tx
calcium 600 mg-D3 800 unit-mag 40 1 tab PO DAILY@1800 Supplement 01/01/15 03/23/25 History
pk-wahd-fglt-vega-boron chew
tablet (Caltrate 600-D Plus
Minerals)
coenzyme Q10 200 mg capsule 200 mg PO DAILY@1200 Supplement 01/01/15 03/23/25 History
glucosamine sulfate 2KCl 1,000 mg 1 tab PO DAILY Supplement 01/01/15 03/23/25 History
tablet
ascorbic acid (vitamin C) 500 mg 500 mg PO NOON Supplement 01/29/22 03/23/25 History
tablet (Vitamin C)
fexofenadine 180 mg tablet 180 mg PO DAILY@1200 Allergies 01/29/22 03/23/25 History
(Ct)
hydrochlorothiazide 25 mg tablet 25 mg PO DAILY Fluid / blood 01/29/22 03/23/25 History
pressure
levothyroxine 50 mcg tablet 50 mcg PO DAILY Thyroid 01/29/22 03/23/25 History
multivitamin with folic acid 400 1 tab PO DAILY Supplement 01/29/22 03/23/25 History
mcg tablet (Tab-A-Majo)
telmisartan 80 mg tablet 80 mg PO DAILY Blood Pressure 01/29/22 03/23/25 History
diltiazem malate 180 mg 180 mg PO DAILY Blood Pressure 03/23/25 03/23/25 History
tablet,extended release 24 hr
rosuvastatin 5 mg tablet 5 mg PO DAILY High Cholesterol 03/23/25 03/23/25 History
Review of Systems
-
History Source: Patient
All other systems: Negative unless noted
Constitutional: Reports No Symptoms
Vascular: Denies Leg Pain / Claudication
Abdomen/GI: Reports No Symptoms
: Reports No Symptoms
Musculoskeletal: Reports No Symptoms
Skin: Reports No Symptoms
Physical Exam
Vital Signs
Temp Pulse Resp BP Pulse Ox
99.2 F 82 16 152/58 95
03/26/25 03:11 03/26/25 03:11 03/26/25 03:11 03/26/25 03:11 03/26/25 03:11
Lab Results
03/26/25 06:14
03/26/25 06:14
Troponin I Cancelled 03/23/25 20:28
Ehd-V-Qwjrvlutmyr Pept Cancelled 03/22/25 23:56
Physical Exam
General: No Apparent Distress
HEENT: Normocephalic and Atraumatic
Respiratory: Non Labored Respirations
Cardiac: Negative JVD
GI: Soft and Non Tender
Skin: Warm
Neuro: Awake, Alert and Oriented
Psych: Calm
Pulses: Bilateral Femoral: +2
Assessment / Plan
-
Diffuse atherosclerotic disease
no acute symptoms
- Carotid artery stenosis - follow up in office
- PVD - can check non invasive imaging as outpatient and follow up in office
- medical management of risk factors
- no acute vascular intervention needed
- please call with questions
Data Reviewed
-
CT Scan: Discussed with Patient
--- NOTE | 2025-03-24 11:00 | W.PN.VS ---
Today's Communication / Plan
-
follow up as outpatient
Assessment/Plan
-
Diffuse atherosclerotic disease
no acute symptoms
- Carotid artery stenosis - follow up in office
- PVD - can check non invasive imaging as outpatient and follow up in office
- medical management of risk factors
- no acute vascular intervention needed
- please call with questions
Subjective Data
-
Date of Service: March 24, 2025
Asked to eval patient for right internal iliac artery occlusion. Admitted for hypertensive crisis
she denies pain in her legs or abdomen
no claudication
no abdominal pain
no n/v
Objective Data
-
Vital Signs
Temp Pulse Resp BP Pulse Ox
98 F 65 17 187/56 95
03/24/25 08:00 03/24/25 10:00 03/24/25 10:00 03/24/25 10:00 03/24/25 08:00
Intake and Output
03/23/25 03/24/25 03/25/25
06:59 06:59 06:59
Intake Total 738.1 / 738.1
Output Total 600 / 600 300 / 300
Balance 138.1 / 138.1 -300 / -300
Intake:
Oral fluids 690 / 690
IV fluids (Total) 48.1 / 48.1
Heparin 45.0 / 45.0
Nitroglycerin 3.1 / 3.1
Output:
Urine, Voided 600 / 600 300 / 300
Lab Results
03/24/25 03:36
03/24/25 03:36
Calcium 10.0 mg/dl (8.4-10.2) 03/24/25 03:36
Magnesium 2.0 mg/dl (1.6-2.3) 03/24/25 03:36
Total Bilirubin 0.9 mg/dl (0.2-1.3) 03/24/25 03:36
AST 21 U/L (14-36) 03/24/25 03:36
ALT 14 U/L (0-35) 03/24/25 03:36
Alkaline Phosphatase 66 U/L (38-126) 03/24/25 03:36
Total Protein 6.6 g/dl (6.3-8.2) 03/24/25 03:36
Albumin 4.1 g/dl (3.5-5.0) 03/24/25 03:36
Physical Exam
-
rrr
ctab
nt,nd,soft
2+ fem pulses bilat
feet warm
CT reviewed - appears to have chronic right internal iliac occlusion. left patent
diffuse atherosclerotic disease throughout
[2025-03-24] MEDS: APRESOLINE 10 MG IV ×2 (11:25→17:27)
[2025-03-24] MEDS: FLUSH (NSS) 1 FLUSH IV ×3 (11:26→17:27)
--- NOTE | 2025-03-24 11:30 | PTCARENOTE ---
Bp at 1100 200/56- rechecked and was 192/58, Medicated with Hydralazine 10 mg IV at 1125 and currently BP 173/62. Remains oob in the chair visiting with family. No complaints offered
--- NOTE | 2025-03-24 11:31 | W.PN.HOSP.TC ---
Today's Communication/Plan
-
Secondary Hypertensive Work up
May need to increase CCB
ASA, Statin
ECHO Wednesday
Assessment / Plan
Assessment / Plan
Physical Exam
General: Other (84y F in no acute distress.)
HEENT: Moist mucous membranes and PERRLA
Respiratory: Clear; No Wheezes, Rales or Rhonchi
Cardiac: S1/S2, Regular Rhythm and Murmur (IV/ MARY)
GI: Soft, Non Tender, Non Distended and Normal Bowel Sounds
Musculoskeletal: No Clubbing, No Cyanosis and No Edema
Neuro: AO x 3
A/P: Patient is an 84y F with PMH significant for ASCVD, CKD and hypertension who presents to ED complaining of chest pain and hypertension.
Hypertensive Emergency
- Suspect 2/2 to high grade stenosis of the left renal artery ; most likely not candidate for stenting
-Check blood pressures in the right arm, given concern of left subclavian stenosis
- -Renal Dopplers ordered
- Placed back on Dilt and HCTZ, ARB;
-May need to increase Dilt
-Secondary Hypertensive work up
- Renal consulted
- No intervention as per vascular, f/u outpt
-F/u ECHO
-F/u TFTs - WNL
Chest pain, 2/2 to above
Elevated Troponin
-most likely non ischemic myocardial injury 2/2 to hypertensive emergency
-stopped hep ggt
-continue asa
-ECHO
-statin
-recommend noninvasive testing as an outpatient
#CKD III
- Stable. SCr is at / near known baseline.
- Follow for changes.
- Renal consulted
#Peripheral arterial disease: Carotid stenosis, renal artery stenosis, occluded iliac
#extensive mixed density atherosclerotic plaque of the abdominal aorta.
#prominent noncalcified atherosclerotic plaque of the thoracic aorta with resultant multifocal mild stenosis.
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
- Vascular consulted - f/u outpt
-can check non invasive imaging as outpatient
DVT Prophylaxis: HSQ
Code Status: Full
Total time spent on today's encounter was 53 minutes which included time spent in counseling the patient/family regarding diagnosis and treatment plan as listed above, goals of care, and symptom management. Case was discussed with nursing staff,
specialists, and care coordinators/case management. All labs and imaging personally reviewed by me. Remainder the time spent in detailed review of previous records, lab data, imaging, and other medical provider documentation.
Anticipated Discharge: > 48 hours
Subjective/Interval History
-
Date of Service: March 24, 2025
elev bps today, no chest pressure
Objective Data
-
Labs:
Laboratory Results
03/24/25
03:36
WBC 6.8
Hgb 10.8 L
Hct 31.6 L
Plt Count 158
Sodium 139
Potassium 4.3
Chloride 106
Carbon Dioxide 26
BUN 38 H
Creatinine 1.2 H
Glucose 155 H
Calcium 10.0
Total Bilirubin 0.9
AST 21
ALT 14
Alkaline Phosphatase 66
Vital Signs:
Vital Signs
Temp Pulse Resp BP Pulse Ox
98 F 63 17 192/58 95
03/24/25 11:09 03/24/25 11:25 03/24/25 10:00 03/24/25 11:25 03/24/25 08:00
I&O
03/23/25 03/24/25 03/25/25
06:59 06:59 06:59
Intake Total 738.1 / 738.1 350 / 350
Output Total 600 / 600 300 / 300
Balance 138.1 / 138.1 50 / 50
Review of Systems
-
History Source: Patient
All other systems: Not reviewed unless documented
Data Reviewed
-
CT Scan: Report Reviewed by me
Labs: Labs Reviewed by me
--- NOTE | 2025-03-24 13:00 | PTCARENOTE ---
Good appetite for lunch. VS as documented. Family in visiting.
[2025-03-24] MEDS: TRANDATE 10 MG IV (15:08)
--- NOTE | 2025-03-24 15:15 | PTCARENOTE ---
Dr. Morrison updated on Bp trend and orders obtained to treat >170's with PRN med- Bp at 1500 183/64 Labetolol 10 mg IV given at 1510. No other changes.
[2025-03-24] MEDS: CLARITIN 10 MG PO (16:10)
--- NOTE | 2025-03-24 16:40 | PTCARENOTE ---
Bp overall better since Labetolol- running in the 140'/50's. OOb to the bathroom to void. States she feels comfortable. No changes in assessment
--- NOTE | 2025-03-24 17:30 | PTCARENOTE ---
Bp back up to 187/59- Medicated with Hydralazine 10 mg IV.
--- NOTE | 2025-03-24 18:18 | PTCARENOTE ---
BP improved post Hydralazine- currently 160/47. Awaiting dinner.
[2025-03-25] VITALS (25 sets, daily range): BP systolic 116–192; BP diastolic 41–64; BMI 26.3
[2025-03-25] MEDS: APRESOLINE 10 MG IV (03:07)
[2025-03-25] MEDS: SYNTHROID 50 MCG PO (03:07)
[2025-03-25 03:25] LABS: Hematocrit 32.8 % (37.0-47.0); Hemoglobin 11.1 g/dL (12.0-16.0); Mean Corp Hgb Conc. 33.8 g/dL (33.0-37.0); Mean Corpuscular Volume 89.9 fL (81.0-99.0); Platelet Count 167 10^3/uL (130-400); Red Cell Dist. Width 12.2 % (11.5-14.5)
[2025-03-25 04:13] LABS: ALT (SGPT) 13 U/L (0-35); AST (SGOT) 19 U/L (14-36); Albumin 4.1 g/dl (3.5-5.0); Alkaline Phosphatase 69 U/L (38-126); Blood Urea Nitrogen 46 mg/dl (7-17); Calcium 9.9 mg/dl (8.4-10.2); Carbon Dioxide 24 mmol/L (22-30); Chloride 105 mmol/L (98-107); Estimated Creatinine Clearance 22 ml/min; Glucose 126 mg/dl (70-99); Potassium 4.1 mmol/L (3.5-5.1); Sodium 138 mmol/L (135-145); Total Protein 6.6 g/dl (6.3-8.2); eGFR 31.41
--- NOTE | 2025-03-25 06:01 | PTCARENOTE ---
Pt Aox3, VSS , NSR on monitor, denies pain. SBP 160-170s, Hydralazine given 1x with improvement of blood pressure. Pt stand by assist to bathroom.
[2025-03-25] MEDS: ORETIC 25 MG PO (08:38)
[2025-03-25] MEDS: PROCARDIA XL (EXTENDED RELEASE) 60 MG PO (08:38)
[2025-03-25] MEDS: DIOVAN 320 MG PO (08:39)
[2025-03-25] MEDS: HEPARIN 5000 UNITS SC ×3 (08:39→23:01)
[2025-03-25] MEDS: CRESTOR 10 MG PO (08:39)
[2025-03-25] MEDS: LOW STRENGTH ASPIRIN 81 MG PO (08:39)
[2025-03-25] MEDS: TYLENOL 650 MG PO ×2 (08:40→16:04)
[2025-03-25] MEDS: FLUSH (NSS) 1 FLUSH IV (08:41)
--- NOTE | 2025-03-25 08:45 | PTCARENOTE ---
Rec'd pt at 0800 awake alert and oriented resting in bed. Overall states she slept a little better last night. Speech is clear. Denies dizziness or headache. Does admit to her chronic lower back pain 'acting up'. Medicated with Tylenol 650 mg po for
7/10 discomfort. Skin is pink wm and dry. Respirs are unlabored on RA with sats of 95%. BS are clear. Monitor SR. Denies chest pain. + pulses. PT and DP pulses with the doppler. No edema. VS as documented. Bp syst this am in the 140's. Abd is soft
with + BS although pt feels as if she needs something for constipation. Voiding yellow urine in the toilet. Capped ints intact L wrist and L ac -sites wnl. Pt assisted oob to the bathroom to void and do self AM care. Gait is steady and no c/o
dizziness. Currently resting in the chair. Plan of care reviewed and call renner in reach.
--- NOTE | 2025-03-25 08:59 | W.PN.NEPH.PH ---
Today's Communication / Plan
-
follow BMP
Assessment/Plan
-
Impression
Hypertensive emergency
Chronic kidney disease stage IIIa
Troponin elevation
Carotid stenosis
PAD
History of TIA
Severe Aortic Stenosis s/p replacement
Primary hypertension
Hypothyroidism
GERD
contrast nephropathy
Plan
continue BP meds, now on procardia
follow BMP
secondary HTN workup pending
AVRIL from contrast, follow trend
renal US not needed as we have CT scan
-
-
Date of Service: March 25, 2025
CC / HPI / ROS
-
Chief Complaint:
HTN
History of Present Illness:
BP stable in the 140-150 range, required prn hydralazine and labetalol yesterday
AVRIL/Cr worse to 1.6
Hgb stable 11.1
Review of Systems:
no CP/SOB
Labs
-
Labs:
WBC 7.9 10^3/uL (4.8-10.8) 03/25/25 03:15
RBC 3.65 10^6/uL (4.20-5.40) L 03/25/25 03:15
Hgb 11.1 g/dL (12.0-16.0) L 03/25/25 03:15
Hct 32.8 % (37.0-47.0) L 03/25/25 03:15
Plt Count 167 10^3/uL (130-400) 03/25/25 03:15
Sodium 138 mmol/L (135-145) 03/25/25 03:15
Potassium 4.1 mmol/L (3.5-5.1) 03/25/25 03:15
Chloride 105 mmol/L (98-107) 03/25/25 03:15
Carbon Dioxide 24 mmol/L (22-30) 03/25/25 03:15
BUN 46 mg/dl (7-17) H 03/25/25 03:15
Creatinine 1.6 mg/dL (0.6-1.0) H 03/25/25 03:15
eGFR 31.41 03/25/25 03:15
Glucose 126 mg/dl (70-99) H 03/25/25 03:15
Calcium 9.9 mg/dl (8.4-10.2) 03/25/25 03:15
Lcv-N-Yfhqbovkjjd Pept Cancelled 03/22/25 23:56
Albumin 4.1 g/dl (3.5-5.0) 03/25/25 03:15
Physical Exam
-
Vital Signs:
Vital Signs
Temp Pulse Resp BP Pulse Ox
97.9 F 84 17 140/54 94
03/25/25 07:10 03/25/25 08:39 03/25/25 08:36 03/25/25 08:39 03/24/25 19:36
Cardiovascular:: Regular rate and rhythm
Respiratory:: Bilateral: CTA
Lung Excursion:: Normal
Abdomen:: Nontender and Soft
Bowel Sounds:: Normal
Extremity Edema:: None: Bilateral:
--- NOTE | 2025-03-25 10:26 | PTCARENOTE ---
Good appetite for breakfast. Only complaint is that her lower back is sore- she feels from lying in the bed, States the Tylenol helped a little but is still sore. Ambulated without difficulty 1 loop around the ICU and is currently ambulating in her
room. Voided yellow urine on the toilet.
--- NOTE | 2025-03-25 10:30 | PTCARENOTE ---
Fair appetite for breakfast- states she wasn't really hungry. Only complaint is that her lower back is sore- she feels from lying in the bed, States the Tylenol helped a little but is still sore. Ambulated without difficulty 1 loop around the ICU
and is currently ambulating in her room. Voided yellow urine on the toilet.
--- NOTE | 2025-03-25 12:04 | PTCARENOTE ---
Remains resting oob in the chair visiting with family. Did admit to feeling sl queezy and lightheaded- BP checked as was 129/42. Wanted to stay sitting in the chair. Given gingerale. No other changes. VS as documented.
[2025-03-25] MEDS: CLARITIN PO (12:10)
--- NOTE | 2025-03-25 12:40 | W.PN.HOSP.TC ---
Today's Communication/Plan
-
see plan
Assessment / Plan
Assessment / Plan
84y F with PMH significant for ASCVD, CKD and hypertension who presents to ED complaining of chest pain and hypertension.
Gen: NAD, AAOx3.
Eyes: EOMI, PERRLA, no scleral icterus.
Neck: supple.
CV: RRR, +S1/S2, 2/6 systolic murmur
Resp: CTAB, no rales, wheezes, or rhonchi.
Abd: +BS, soft, NT, ND
Skin: No rashes.
Neuro: CN 2-12 intact, non-focal.
Psych: Normal mood and affect.
CTA C/A/P: No aortic aneurysm or dissection. There is prominent noncalcified atherosclerotic plaque of the thoracic aorta with resultant multifocal mild stenosis. There is extensive mixed density atherosclerotic plaque of the abdominal aorta. There
is high-grade stenosis at the ostium of the left renal artery with an atrophic left kidney. 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
Hypertensive Emergency:
-CP due to hypertensive emergency
-elevated trop likely nonischemic myocardial injury due to hypertensive emergency, cont ASA/statin, cards following
-Hypertensive emergency likely due to high grade stenosis of the L renal artery; most likely not candidate for stenting
-Check blood pressures in the R arm, given concern of left subclavian stenosis
-cont HCTZ/Diovan/Procardia XL (renal following)
-Secondary hypertensive workup, renin, aldosterone, pheochromocytoma labs pending
-Vascular surgery saw in consultation. No surgical intervention is indicated and they recommend outpatient follow-up.
-check echo
AVRIL on CKD3a:
-likely CHAYITO
-renal U/S pending
-renal following
PAD:
-see imaging above notable for carotid stenosis, SHERRIE, occluded mid R internal iliac, extensive mixed density atherosclerotic plaque of the abdominal aorta., prominent noncalcified atherosclerotic plaque of the thoracic aorta with resultant
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
-vascular saw in c/s as above
Hypothyroidism:
-TSH normal
-cont Levoxyl
FULL/Heparin
Anticipated Discharge: 24 - 48 hours
Subjective/Interval History
-
Date of Service: March 25, 2025
Denies CP/SOB.
Objective Data
-
Labs:
Laboratory Results
03/25/25
03:15
WBC 7.9
Hgb 11.1 L
Hct 32.8 L
Plt Count 167
Sodium 138
Potassium 4.1
Chloride 105
Carbon Dioxide 24
BUN 46 H
Creatinine 1.6 H
Glucose 126 H
Calcium 9.9
Total Bilirubin 0.8
AST 19
ALT 13
Alkaline Phosphatase 69
Vital Signs:
Vital Signs
Temp Pulse Resp BP Pulse Ox
97.6 F 70 17 129/42 95
03/25/25 11:35 03/25/25 12:00 03/25/25 12:00 03/25/25 12:00 03/25/25 12:10
I&O
03/24/25 03/25/25 03/26/25
06:59 06:59 06:59
Intake Total 738.1 / 738.1 800 / 800 350 / 350
Output Total 600 / 600 1400 / 1400 300 / 300
Balance 138.1 / 138.1 -600 / -600 50 / 50
--- NOTE | 2025-03-25 14:15 | PTCARENOTE ---
Remains OOB, states she is feeling better and that the gingerale helped her stomach. Ate lunch with no c/o nausea. VS as documented. Dr. Knapp in to see pt. Family at the bedside.
--- NOTE | 2025-03-25 16:02 | W.PN.CD ---
Today's Communication / Plan
-
-Blood pressure is now controlled on current doses of hydrochlorothiazide 25 mg daily, valsartan 320 mg daily, and Procardia XL 60 mg daily; continue.
-Patient with suspected subclavian artery stenosis; recommendations as per Vascular Surgery.
-Echocardiogram tomorrow.
Impression / Plan
-
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
CKD who recently saw Dr. Mcconnell who suspects left-sided subclavian artery stenosis presented with hypertensive emergency.
Outpatient Shearing Machine Tender: Dr. Miranda
Hypertensive emergency:
-Blood pressure is now controlled on current doses of hydrochlorothiazide 25 mg daily, valsartan 320 mg daily, and Procardia XL 60 mg daily; continue.
-Patient with suspected subclavian artery stenosis; recommendations as per Vascular Surgery.
-High-grade stenosis at the ostium of the left renal artery with an atrophic left kidney.
-Secondary workup pending, ordered by Nephrology
-Echocardiogram tomorrow.
Chest pain
-Symptom of hypertensive emergency
�Vasculopath; recommend noninvasive testing as an outpatient.
-TTE Wednesday
Nonischemic myocardial injury in the setting of hypertensive emergency:
-Peak trop 0.063, EKG with LVH.
Peripheral arterial disease: Carotid stenosis, renal artery stenosis, occluded iliac
-Suspected subclavian stenosis on the left; recommendations as per vascular surgery.
-Would be more aggressive with secondary prevention (report of TIA)
-LDL 63 (goal is less than 55); rosuvastatin increased to 10 mg daily.
CKD Stage III, follows with Dr. Mcconnell
- Nephrology following.
Physical Exam
Vital Signs/Labs
Vital Signs
Temp Pulse Resp BP Pulse Ox
97.6 F 72 19 123/44 95
03/25/25 11:35 03/25/25 14:30 03/25/25 14:30 03/25/25 14:00 03/25/25 12:10
03/24/25 03/25/25 03/26/25
06:59 06:59 06:59
Actual Weight 63.4 kg 63 kg
03/25/25 03:15
03/25/25 03:15
PT 13.4 Sec (11.4-14.6) 03/22/25 22:24
INR 0.97 03/22/25 22:24
APTT Cancelled 03/23/25 15:30
Magnesium 2.0 mg/dl (1.6-2.3) 03/24/25 03:36
Triglycerides 84 mg/dl (10-149) 03/24/25 03:36
LDL Cholesterol, Calc 63 mg/dl 03/24/25 03:36
VLDL Cholesterol, Calc 16 mg/dl (0-30) 03/24/25 03:36
HDL Cholesterol 70 mg/dl 03/24/25 03:36
03/22/25 03/22/25
22:24 23:56
Hia-L-Yxakhmdbvfx Pept 2280 Cancelled
LAB Results
03/22/25 03/23/25 03/23/25
22:24 01:35 09:21
Troponin I 0.048 H* 0.063 H* D 0.054 H*
03/23/25 03/23/25
14:28 20:28
Troponin I Cancelled Cancelled
Physical Exam
Constitutional: No acute distress and Comfortable
EENT: Anicteric
Cardiovascular: Rhythm & rate is regular, Pedal edema is absent, Systolic murmur present (/) and S1S2 is normal
Respiratory: Respiratory effort normal and Lungs clear to auscul.
GI: Soft
Neuro/Psych: AO x 3
Other: Skin (Warm, dry)
Data Reviewed
-
Date of Service: March 25, 2025
EKG: Tracing Personally Visualized and interpreted (Telemetry: Sinus rhythm)
Echo: Ordered by me
Medical Tests (PFT, Pathology etc): Discussed with Physician, Discussed with Patient and Discussed with Family (Son and granddaughters at bedside)
Labs: Labs Reviewed by me
--- NOTE | 2025-03-25 16:16 | PTCARENOTE ---
Has been resting oob all day. Walked a second loop around the ICU- no c/o dizziness. States her lower back pain has eased a little during the day but still feels it. Remedicated with Tylenol 650 mg po for 6/10 discomfort. VS as documented. RA sats
are 94%. Voided small amt of urine in the toilet. No other changes in assessment
--- NOTE | 2025-03-25 16:45 | PTCARENOTE ---
Report called to [facility]-will transfer pt via wheelchair to [phone]. No other changes in assessment
[2025-03-25] MEDS: CLARITIN 10 MG PO (20:03)
[2025-03-25] MEDS: COLACE 100 MG PO (20:03)
[2025-03-26 03:11] VITALS: BP 152/58
[2025-03-26] MEDS: SYNTHROID 50 MCG PO (05:09)
[2025-03-26 05:25] VITALS: BMI 27.0
[2025-03-26 06:49] LABS: Hematocrit 31.6 % (37.0-47.0); Hemoglobin 10.7 g/dL (12.0-16.0); Mean Corp Hgb Conc. 33.9 g/dL (33.0-37.0); Mean Corpuscular Volume 88.8 fL (81.0-99.0); Platelet Count 169 10^3/uL (130-400); Red Cell Dist. Width 12.1 % (11.5-14.5)
[2025-03-26 07:19] LABS: ALT (SGPT) 15 U/L (0-35); AST (SGOT) 19 U/L (14-36); Albumin 4.0 g/dl (3.5-5.0); Alkaline Phosphatase 68 U/L (38-126); Blood Urea Nitrogen 58 mg/dl (7-17); Calcium 9.9 mg/dl (8.4-10.2); Carbon Dioxide 26 mmol/L (22-30); Chloride 104 mmol/L (98-107); Estimated Creatinine Clearance 21 ml/min; Glucose 131 mg/dl (70-99); Potassium 4.5 mmol/L (3.5-5.1); Sodium 135 mmol/L (135-145); Total Protein 6.6 g/dl (6.3-8.2); eGFR 29.21
[2025-03-26 07:30] VITALS: BP 162/62
[2025-03-26] MEDS: LOW STRENGTH ASPIRIN 81 MG PO (08:17)
[2025-03-26] MEDS: CRESTOR 10 MG PO (08:17)
[2025-03-26] MEDS: COLACE 100 MG PO ×2 (08:17→19:28)
[2025-03-26] MEDS: HEPARIN 5000 UNITS SC ×3 (08:18→23:27)
[2025-03-26] MEDS: ORETIC 25 MG PO (08:20)
[2025-03-26] MEDS: PROCARDIA XL (EXTENDED RELEASE) 60 MG PO (08:20)
--- NOTE | 2025-03-26 08:20 | W.PN.CD ---
Today's Communication / Plan
-
echo today
monitor renl function closely. trending up
hold HCTZ
will have nephrology review.
Impression / Plan
-
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
CKD who recently saw Dr. Mcconnell who suspects left-sided subclavian artery stenosis presented with hypertensive emergency.
Outpatient Reading Specialist: Dr. Miranda
Hypertensive emergency:
-Blood pressure is now controlled on current doses of hydrochlorothiazide 25 mg daily, valsartan 320 mg daily, and Procardia XL 60 mg daily; continue.
-Patient with suspected subclavian artery stenosis; recommendations as per Vascular Surgery.
-High-grade stenosis at the ostium of the left renal artery with an atrophic left kidney.
-Secondary workup pending, ordered by Nephrology ( renin marvin and metanephrines/[place] )
-Echocardiogram 03/26/25
Chest pain
-Symptom of hypertensive emergency
�Vasculopath; recommend noninvasive testing as an outpatient.
-TTE Wednesday
Bio AVR - assess with echo
Nonischemic myocardial injury in the setting of hypertensive emergency:
-Peak trop 0.063, EKG with LVH.
Peripheral arterial disease: Carotid stenosis, renal artery stenosis, occluded iliac
-Suspected subclavian stenosis on the left; recommendations as per vascular surgery.
-Would be more aggressive with secondary prevention (report of TIA)
-LDL 63 (goal is less than 55); rosuvastatin increased to 10 mg daily.
CKD Stage III, follows with Dr. Mcconnell
- Nephrology following.
- creatinine trending up to 1.7. Hold HCTZ. May need to hold valsartan defer to nephrology
Physical Exam
Vital Signs/Labs
Vital Signs
Temp Pulse Resp BP Pulse Ox
99.2 F 82 16 152/58 95
03/26/25 03:11 03/26/25 03:11 03/26/25 03:11 03/26/25 03:11 03/26/25 03:11
03/25/25 03/26/25 03/27/25
06:59 06:59 06:59
Actual Weight 63 kg 64.864 kg
03/26/25 06:14
03/26/25 06:14
PT 13.4 Sec (11.4-14.6) 03/22/25 22:24
INR 0.97 03/22/25 22:24
APTT Cancelled 03/23/25 15:30
Magnesium 2.0 mg/dl (1.6-2.3) 03/24/25 03:36
Triglycerides 84 mg/dl (10-149) 03/24/25 03:36
LDL Cholesterol, Calc 63 mg/dl 03/24/25 03:36
VLDL Cholesterol, Calc 16 mg/dl (0-30) 03/24/25 03:36
HDL Cholesterol 70 mg/dl 03/24/25 03:36
03/22/25 03/22/25
22:24 23:56
Ntt-W-Cyaxqysrsfm Pept 2280 Cancelled
LAB Results
03/23/25 03/23/25 03/23/25
09:21 14:28 20:28
Troponin I 0.054 H* Cancelled Cancelled
Physical Exam
Constitutional: No acute distress
Cardiovascular: Rhythm & rate is regular
Respiratory: Wheeze Absent and Rhonchi Absent
GI: Soft and Non tender
Neuro/Psych: Alert
Data Reviewed
-
Date of Service: March 26, 2025
Medical Decision Making: Reviewed Test Results
X-Ray/CT/US/MRI/NUC/PET: Report Reviewed by me
Medical Tests (PFT, Pathology etc): Image Personally Visualized and interpreted
Labs: Labs Reviewed by me
[2025-03-26] MEDS: DIOVAN 320 MG PO (08:21)
--- NOTE | 2025-03-26 09:40 | W.PN.HOSP.TC ---
Today's Communication/Plan
-
see plan
Assessment / Plan
Assessment / Plan
84y F with PMH significant for ASCVD, CKD and hypertension who presents to ED complaining of chest pain and hypertension.
Gen:remains NAD, AAOx3.
Eyes: EOMI, PERRLA, no scleral icterus.
Neck: supple.
CV: remains RRR, +S1/S2, 2/6 systolic murmur
Resp: remains CTAB, no rales, wheezes, or rhonchi.
Abd: +BS, soft, NT, ND
Skin: No rashes.
Neuro: CN 2-12 intact, non-focal.
Psych: Normal mood and affect.
CTA C/A/P: No aortic aneurysm or dissection. There is prominent noncalcified atherosclerotic plaque of the thoracic aorta with resultant multifocal mild stenosis. There is extensive mixed density atherosclerotic plaque of the abdominal aorta. There
is high-grade stenosis at the ostium of the left renal artery with an atrophic left kidney. 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
Echo: EF 60-65%. LVH. Bioprosthetic aortic valve with a peak gradient of 16mmHg and mean 9mmHg. No aortic regurgitation. No prior study available for comparison.
Hypertensive Emergency:
-CP due to hypertensive emergency
-elevated trop likely nonischemic myocardial injury due to hypertensive emergency, cont ASA/statin, cards following
-Hypertensive emergency likely due to high grade stenosis of the L renal artery; most likely not candidate for stenting
-echo above
-Check blood pressures in the R arm, given concern of left subclavian stenosis
-cont Diovan/Procardia XL (renal following). HCTZ stopped 03/26/25AM by cardiology.
-Secondary hypertensive workup, renin, aldosterone, pheochromocytoma labs pending
-Vascular surgery saw in consultation. No surgical intervention is indicated and they recommend outpatient follow-up.
AVRIL on CKD3a:
-likely CHAYITO
-renal following
PAD:
-see imaging above notable for carotid stenosis, SHERRIE, occluded mid R internal iliac, extensive mixed density atherosclerotic plaque of the abdominal aorta., prominent noncalcified atherosclerotic plaque of the thoracic aorta with resultant
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
-vascular saw in c/s as above
Hypothyroidism:
-TSH normal
-cont Levoxyl
FULL/Heparin
Anticipated Discharge: Within 24 hours
Subjective/Interval History
-
Date of Service: March 26, 2025
No new complaints.
Objective Data
-
Labs:
Laboratory Results
03/26/25
06:14
WBC 8.0
Hgb 10.7 L
Hct 31.6 L
Plt Count 169
Sodium 135
Potassium 4.5
Chloride 104
Carbon Dioxide 26
BUN 58 H
Creatinine 1.7 H
Glucose 131 H
Calcium 9.9
Total Bilirubin 1.1
AST 19
ALT 15
Alkaline Phosphatase 68
Vital Signs:
Vital Signs
Temp Pulse Resp BP Pulse Ox
98.2 F 85 18 163/62 97
03/26/25 07:30 03/26/25 08:21 03/26/25 07:30 03/26/25 08:21 03/26/25 07:30
I&O
03/25/25 03/26/25 03/27/25
06:59 06:59 06:59
Intake Total 800 / 800 1380 / 1380
Output Total 1400 / 1400 350 / 350
Balance -600 / -600 1030 / 1030
[2025-03-26 11:45] VITALS: BP 148/50
--- NOTE | 2025-03-26 14:22 | W.PN.NEPH.PH ---
Today's Communication / Plan
-
check UA
add PM nifedipine
Assessment/Plan
-
Impression
Hypertensive emergency
Chronic kidney disease stage IIIa
Troponin elevation
Carotid stenosis
PAD
History of TIA
Severe Aortic Stenosis s/p replacement
Primary hypertension
Hypothyroidism
GERD
contrast nephropathy
Plan
HTN-Am BP seem to be high, add low dose nifedipine at night in addition to Am 60mg
HCTZ held by cards for AVRIL
continue ARB
AVRIL-felt from CHAYITO, suspect cr has reached peak
secondary HTN workup pending, echo LVH, normal EF
check UA for baseline
Also check bladder scan for increased U frequency
-
-
Date of Service: March 26, 2025
CC / HPI / ROS
-
Chief Complaint:
HTN
History of Present Illness:
Am BP are still high , improved with meds, no prn meds
AVRIL/Cr worse to 1.7
Hgb stable 11.1
Review of Systems:
no CP/SOB
c/o increased urinary frequency
no dizziness
Labs
-
Labs:
WBC 8.0 10^3/uL (4.8-10.8) 03/26/25 06:14
RBC 3.56 10^6/uL (4.20-5.40) L 03/26/25 06:14
Hgb 10.7 g/dL (12.0-16.0) L 03/26/25 06:14
Hct 31.6 % (37.0-47.0) L 03/26/25 06:14
Plt Count 169 10^3/uL (130-400) 03/26/25 06:14
Sodium 135 mmol/L (135-145) 03/26/25 06:14
Potassium 4.5 mmol/L (3.5-5.1) 03/26/25 06:14
Chloride 104 mmol/L (98-107) 03/26/25 06:14
Carbon Dioxide 26 mmol/L (22-30) 03/26/25 06:14
BUN 58 mg/dl (7-17) H 03/26/25 06:14
Creatinine 1.7 mg/dL (0.6-1.0) H 03/26/25 06:14
eGFR 29.21 03/26/25 06:14
Glucose 131 mg/dl (70-99) H 03/26/25 06:14
Calcium 9.9 mg/dl (8.4-10.2) 03/26/25 06:14
Kdf-X-Thzkinsdegs Pept Cancelled 03/22/25 23:56
Albumin 4.0 g/dl (3.5-5.0) 03/26/25 06:14
Physical Exam
-
Vital Signs:
Vital Signs
Temp Pulse Resp BP Pulse Ox
97.7 F 80 16 148/50 96
03/26/25 11:45 03/26/25 11:45 03/26/25 11:45 03/26/25 11:45 03/26/25 11:45
Cardiovascular:: Regular rate and rhythm (murmur)
Respiratory:: Bilateral: CTA
Lung Excursion:: Normal
Abdomen:: Nontender and Soft
Bowel Sounds:: Normal
Extremity Edema:: None: Bilateral:
Multani Catheter: No
[2025-03-26 16:00] VITALS: BP 142/58
[2025-03-26 19:22] LABS: Urine Character Clear (Clear)
[2025-03-26] MEDS: CLARITIN 10 MG PO (19:28)
[2025-03-26 19:38] LABS: Urine Red Blood Cell 0-2 /HPF (0-2)
[2025-03-26 19:55] VITALS: BP 139/56
[2025-03-26] MEDS: PROCARDIA XL (EXTENDED RELEASE) 30 MG PO (21:25)
[2025-03-26 23:23] VITALS: BP 103/61
[2025-03-27 03:03] VITALS: BP 153/55
[2025-03-27] MEDS: SYNTHROID 50 MCG PO (05:17)
[2025-03-27 05:43] VITALS: BMI 26.7
[2025-03-27 06:49] LABS: Hematocrit 34.9 % (37.0-47.0); Hemoglobin 12.1 g/dL (12.0-16.0); Mean Corp Hgb Conc. 34.7 g/dL (33.0-37.0); Mean Corpuscular Volume 89.3 fL (81.0-99.0); Platelet Count 192 10^3/uL (130-400); Red Cell Dist. Width 11.9 % (11.5-14.5)
[2025-03-27 07:00] VITALS: BP 148/54
[2025-03-27 07:16] LABS: ALT (SGPT) 26 U/L (0-35); AST (SGOT) 26 U/L (14-36); Albumin 4.3 g/dl (3.5-5.0); Alkaline Phosphatase 81 U/L (38-126); Blood Urea Nitrogen 61 mg/dl (7-17); Calcium 10.3 mg/dl (8.4-10.2); Carbon Dioxide 25 mmol/L (22-30); Chloride 105 mmol/L (98-107); Estimated Creatinine Clearance 21 ml/min; Glucose 143 mg/dl (70-99); Potassium 4.3 mmol/L (3.5-5.1); Sodium 138 mmol/L (135-145); Total Protein 7.2 g/dl (6.3-8.2); eGFR 29.21
[2025-03-27] MEDS: PROCARDIA XL (EXTENDED RELEASE) 60 MG PO (07:45)
[2025-03-27] MEDS: DIOVAN 320 MG PO (07:45)
[2025-03-27] MEDS: COLACE 100 MG PO (07:46)
[2025-03-27] MEDS: CRESTOR 10 MG PO (07:46)
[2025-03-27] MEDS: HEPARIN 5000 UNITS SC (07:46)
[2025-03-27] MEDS: LOW STRENGTH ASPIRIN 81 MG PO (07:46)
[2025-03-27 10:41] LABS: Aldosterone/Renin Activ Ratio 4.5 ratio (<=25.0); Renin Activity Results 1.7 ng/mL/hr
[2025-03-27 11:00] VITALS: BP 137/51
--- NOTE | 2025-03-27 11:41 | W.PN.HOSP.TC ---
Today's Communication/Plan
-
d/c
Assessment / Plan
Assessment / Plan
84y F with PMH significant for ASCVD, CKD and hypertension who presents to ED complaining of chest pain and hypertension.
Gen:remains NAD, AAOx3.
Eyes: EOMI, PERRLA, no scleral icterus.
Neck: supple.
CV: remains RRR, +S1/S2, 2/6 systolic murmur
Resp: remains CTAB, no rales, wheezes, or rhonchi.
Abd: +BS, soft, NT, ND
Skin: No rashes.
Neuro: CN 2-12 intact, non-focal.
Psych: Normal mood and affect.
CTA C/A/P: No aortic aneurysm or dissection. There is prominent noncalcified atherosclerotic plaque of the thoracic aorta with resultant multifocal mild stenosis. There is extensive mixed density atherosclerotic plaque of the abdominal aorta. There
is high-grade stenosis at the ostium of the left renal artery with an atrophic left kidney. 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
Echo: EF 60-65%. LVH. Bioprosthetic aortic valve with a peak gradient of 16mmHg and mean 9mmHg. No aortic regurgitation. No prior study available for comparison.
Hypertensive Emergency:
-CP due to hypertensive emergency
-elevated trop likely nonischemic myocardial injury due to hypertensive emergency, cont ASA/statin, cards following
-Hypertensive emergency likely due to high grade stenosis of the L renal artery; most likely not candidate for stenting
-echo above
-Check blood pressures in the R arm, given concern of left subclavian stenosis
-cont Diovan/Procardia XL (PM dose added, renal following). HCTZ stopped 25AM by cardiology.
-Secondary hypertensive workup: renin/aldosterone/pheochromocytoma labs normal
-Vascular surgery saw in consultation. No surgical intervention is indicated and they recommend outpatient follow-up.
AVRIL on CKD3a:
-likely CHAYITO
-Cr has peaked
-follow Cr outpt as per discussion with Dr. Walter
PAD:
-see imaging above notable for carotid stenosis, SHERRIE, occluded mid R internal iliac, extensive mixed density atherosclerotic plaque of the abdominal aorta., prominent noncalcified atherosclerotic plaque of the thoracic aorta with resultant
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
-vascular saw in c/s as above
Hypothyroidism:
-TSH normal
-cont Levoxyl
FULL/Heparin
Medically cleared for d/c.
Total time spent on d/c = 31 min. This included today's physical exam, progress note, review of laboratory and diagnostic data, preparation of discharge documents and prescriptions, and discussions about the pt's hospital course and discharge plan
with the patient and other director medical writing involved in the patient's care.
Anticipated Discharge: Today
Subjective/Interval History
-
Date of Service: March 27, 2025
No new complaints.
Objective Data
-
Labs:
Laboratory Results
03/27/25
06:12
WBC 8.8
Hgb 12.1
Hct 34.9 L
Plt Count 192
Sodium 138
Potassium 4.3
Chloride 105
Carbon Dioxide 25
BUN 61 H
Creatinine 1.7 H
Glucose 143 H
Calcium 10.3 H
Total Bilirubin 1.1
AST 26
ALT 26
Alkaline Phosphatase 81
Vital Signs:
Vital Signs
Temp Pulse Resp BP Pulse Ox
97.9 F 72 16 137/51 97
03/27/25 11:00 03/27/25 11:00 03/27/25 11:00 03/27/25 11:00 03/27/25 11:00
I&O
03/26/25 03/27/25 03/28/25
06:59 06:59 06:59
Intake Total 1380 / 1380 660 / 660
Output Total 350 / 350
Balance 1030 / 1030 660 / 660
--- NOTE | 2025-03-27 12:59 | W.PN.NEPH.PH ---
Today's Communication / Plan
-
ok for d/c
see plan
Assessment/Plan
-
Impression
Hypertensive emergency
Chronic kidney disease stage IIIa
Troponin elevation
Carotid stenosis
PAD
History of TIA
Severe Aortic Stenosis s/p replacement
Primary hypertension
Hypothyroidism
GERD
contrast nephropathy
Plan
HTN-better on current regimen
HCTZ on hold, once cr improves should resume
AVRIL-felt from CHAYITO, suspect cr has reached peak , no change at 1.7
ARR neg, dopamine slightly up but not diagnostic, await metanephrins, echo LVH, normal EF
UA pyuria, but contaminated sample-need out pt f/u
Also check bladder scan for increased U frequency
BMP in 2-3days with PCP
f/u nephro
d/w pt and primary
-
-
Date of Service: March 27, 2025
CC / HPI / ROS
-
Chief Complaint:
HTN
History of Present Illness:
Am BP are still high , improved with meds, no prn meds
AVRIL/Cr no change at 1.7
Hgb stable 11.1
Review of Systems:
no CP/SOB
c/o increased urinary frequency no change, seem urgency but no dysuria
no dizziness
Labs
-
Labs:
WBC 8.8 10^3/uL (4.8-10.8) 03/27/25 06:12
RBC 3.91 10^6/uL (4.20-5.40) L 03/27/25 06:12
Hgb 12.1 g/dL (12.0-16.0) 03/27/25 06:12
Hct 34.9 % (37.0-47.0) L 03/27/25 06:12
Plt Count 192 10^3/uL (130-400) 03/27/25 06:12
Sodium 138 mmol/L (135-145) 03/27/25 06:12
Potassium 4.3 mmol/L (3.5-5.1) 03/27/25 06:12
Chloride 105 mmol/L (98-107) 03/27/25 06:12
Carbon Dioxide 25 mmol/L (22-30) 03/27/25 06:12
BUN 61 mg/dl (7-17) H 03/27/25 06:12
Creatinine 1.7 mg/dL (0.6-1.0) H 03/27/25 06:12
eGFR 29.21 03/27/25 06:12
Glucose 143 mg/dl (70-99) H 03/27/25 06:12
Calcium 10.3 mg/dl (8.4-10.2) H 03/27/25 06:12
Ogx-T-Retzsdraxow Pept Cancelled 03/22/25 23:56
Albumin 4.3 g/dl (3.5-5.0) 03/27/25 06:12
Physical Exam
-
Vital Signs:
Vital Signs
Temp Pulse Resp BP Pulse Ox
97.9 F 72 16 137/51 97
03/27/25 11:00 03/27/25 11:00 03/27/25 11:00 03/27/25 11:00 03/27/25 11:00
Cardiovascular:: Regular rate and rhythm (murmur)
Respiratory:: Bilateral: CTA
Lung Excursion:: Normal
Abdomen:: Nontender and Soft
Bowel Sounds:: Normal
Extremity Edema:: None: Bilateral:
Multani Catheter: No
--- NOTE | 2025-03-27 13:37 | W.DCSUMMARY ---
Discharge Summary
Discharge Data
Date of Admission: 03/23/25
Date of Discharge: 03/27/25
-
Pending Results: No
Hospital Course
Primary diagnoses:
Hypertensive emergency
Acute kidney injury on chronic disease stage 3a due to contrast-induced nephropathy
Elevated trop likely nonischemic myocardial injury due to hypertensive emergency
Secondary diagnoses:
Peripheral arterial disease
Hypothyroidism
Consultants:
Nephrology
Cardiology
Vascular surgery
Imaging:
CTA C/A/P: No aortic aneurysm or dissection. There is prominent noncalcified atherosclerotic plaque of the thoracic aorta with resultant multifocal mild stenosis. There is extensive mixed density atherosclerotic plaque of the abdominal aorta. There
is high-grade stenosis at the ostium of the left renal artery with an atrophic left kidney. 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
Echo: EF 60-65%. LVH. Bioprosthetic aortic valve with a peak gradient of 16mmHg and mean 9mmHg. No aortic regurgitation. No prior study available for comparison.
84-year-old female presented with chief complaint of chest pain as outlined in the H&P done on admission. Hospital course by problem was:
Hypertensive Emergency: The patient's chest pain was due to hypertensive emergency. The patient's elevated troponin was likely nonischemic myocardial injury due to hypertensive emergency.she was seen in consultation by cardiology. Her aspirin and
statin were continued. Her hypertensive emergency was likely due to high grade stenosis of the L renal artery; most likely not candidate for stenting. Echocardiogram above. The patient's antihypertensive medications were adjusted while
hospitalized and her blood pressure improved. She did have a secondary hypertension workup. Her renin/aldosterone/pheochromocytoma labs were normal. Vascular surgery saw in consultation. No surgical intervention was indicated and they recommend
outpatient follow-up.
AVRIL on CKD3a: This was likely due to contrast-induced nephropathy. The patient was seen in consultation by nephrology. Her creatinine peaked at 1.7. She will need her creatinine followed after discharge. She was cleared for discharge from this
perspective by Dr. Walter.
PAD: See imaging above notable for carotid stenosis, SHERRIE, occluded mid R internal iliac, extensive mixed density atherosclerotic plaque of the abdominal aorta., prominent noncalcified atherosclerotic plaque of the thoracic aorta with resultant
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 Vascular saw in c/s as above.
Discharge Plan
-
Patient Disposition: Home (Routine Discharge)
Discharge Diagnosis/Procedures: Hypertensive emergency
Condition: Good
Diet: Low Cholesterol and 2 Gram Sodium
Activity: As tolerated
Driving Restrictions: As prior to admission
Blood Work: BMP in 1 week, script from PCP
Others Tests: Ultrasound appointment: 04/24/2025 2 PM
Referrals:
Ted Rene DO [Family Provider, Family Practice] - in less than 1 week
Alvin Morrison MD [Active, Nephrology] - in one to two weeks
Tomasz Hernandez MD [Active, Vascular Surgery] - 04/30/25 2:00 pm
Referral Note: Vascular surgery office follow-up
Prescriptions:
New
nifedipine 30 mg Tablet Extended Release
30 mg PO HS Qty: 30 0RF
nifedipine 60 mg Tablet Extended Release
60 mg PO DAILY Qty: 30 0RF
valsartan 160 mg Tablet
320 mg PO DAILY Qty: 60 0RF
rosuvastatin 10 mg Tablet
10 mg PO DAILY Qty: 30 0RF
Continued
aspirin 81 MG tablet,chewable
81 mg PO DAILY
glucosamine sulfate 2KCl 1,000 MG tablet
1 tab PO DAILY
Caltrate 600-D Plus Minerals 1 EACH tablet,chewable
1 tab PO DAILY@1800
coenzyme Q10 200 MG capsule
200 mg PO DAILY@1200
fexofenadine [Ct] 180 MG tablet
180 mg PO DAILY@1200
ascorbic acid (vitamin C) [Vitamin C] 500 MG tablet
500 mg PO NOON
levothyroxine 50 MCG tablet
50 mcg PO DAILY
multivitamin with folic acid [Tab-A-Majo] 1 TABLET tablet
1 tab PO DAILY
Discontinued
telmisartan 80 MG tablet
80 mg PO DAILY
hydrochlorothiazide 25 MG tablet
25 mg PO DAILY
diltiazem malate 180 mg Tablet Extended Release 24 Hr
180 mg PO DAILY
rosuvastatin 5 mg Tablet
5 mg PO DAILY
Discharge Orders:
Discharge Patient (As Directed); Ordered 03/27/25
Ordered By: Mauri Schmidt
Discharge Date and Time
Print Language: UKRAINIAN
--- NOTE | 2025-03-27 13:55 | CM ---
CM met with Chelsea with her family at bedside. She lives with her daughter in a 2 story home with a basement; Chelsea is (I) amb and adls, drives, and likes to be active She likes to walk outside and also uses a stationary bike to exercise
her legs.
Pt is cleared for discharge to home today. No identified needs.
== END 2025-03-27 14:17 | disposition home or self-care (01) | DRG 699 ==
LOC: 3 WEST ACU 06:13
PROVIDERS: Emergency Medicine; Internal Medicine; ADMITTING PHYSICIAN Hospitalist; ATTENDING PHYSICIAN Internal Medicine; CONSULT PHYSICIAN Specialist; EMERGENCY PHYSICIAN Student in an Organized Health Care Education/Training Program; FAMILY PHYSICIAN Family Medicine; OTHER PHYSICIAN Internal Medicine Cardiovascular Disease; OTHER PHYSICIAN Surgery
DX: I70.1 Atherosclerosis of renal artery (principal); I16.1 Hypertensive emergency; N17.9 Acute kidney failure, unspecified; I74.5 Embolism and thrombosis of iliac artery; I5A Non-ischemic myocardial injury (non-traumatic); I12.9 Hypertensive chronic kidney disease with stage 1 through stage 4 chronic kidney disease, or unspecified chronic kidney disease; I25.10 Atherosclerotic heart disease of native coronary artery without angina pectoris; N18.31 Chronic kidney disease, stage 3a; E03.9 Hypothyroidism, unspecified; K21.9 Gastro-esophageal reflux disease without esophagitis; I73.9 Peripheral vascular disease, unspecified
CPT/HCPCS: 71275; 74174; 80053; 80061; 81003; 81015; 82088; 82384; 83036; 83735; 83835; 83880; 84244; 84443; 84484; 85025; 85027; 85610; 85730; 93005; 93306; 96365; 96366; 96375; 99291; Q9967

== ENCOUNTER 2025-03-31 20:08 | Emergency (ER) | payer OTHER, SELFPAY ==
[2025-03-31 20:49] VITALS: BP 158/55
--- NOTE | 2025-03-31 23:14 | ED.GENMED ---
History of Present Illness
General
Chief Complaint: Foreign Body Removal
Source: patient
Exam Limitations: none
Time Seen by Provider: 03/31/25 20:25
Nursing documentation reviewed up to this point in time: agreed with
History of Present Illness
History of Present Illness:
Patient states she was leaning over to lease picker something and she fell over. Denies hitting her head. She injured her right hand. Developed pain swelling and bruising to hand. She was seen at urgent care and they were unable to remove ring from
right 4th finger. Sent to ED by .
Past History
Past History
ED Past Medical History: HTN and Hypercholesterolemia
ED Past Surgical History: None
Review of Systems
Review of Systems
Allergies reviewed?: Yes
All Other Systems: ROS reviewed and negative except as documented in HPI and ROS
Constitutional: Reports no symptoms
Musculoskeletal: Reports joint pain (swelling and bruising right hand. Unable to remove ring from right 4th finger)
Skin: Reports other (bruising right hand)
Neurological: Reports no symptoms
Psychiatric: Reports no symptoms
Phy Exam
General Physical Exam
General Presentation: well appearing and no apparent distress
General age: appears stated age
General Skin: warm and dry
General Habitus: normal
General Mental: alert
Musculoskeletal Exam
Musculoskeletal Exam: neuro vasc intact and other (swelling and bruising to right hand/fingers. Ring stuck on right 4th finger)
Skin Exam
Skin Exam: normal color, warm/dry and no rash
Psychiatric Exam
Psychiatric Exam: normal mood/affect
Course
Orders/Labs/Results
Orders:
Orders
03/31/25 20:26
Sling Right-Treatment ONCE
Vital Signs
Initial and Last Documented VS:
Initial Vital Signs
Pulse Resp Pulse Ox
75 18 98
03/31/25 20:09 03/31/25 20:09 03/31/25 20:09
Last Documented Vital Signs
Pulse Resp BP Pulse Ox
75 18 158/55 98
03/31/25 20:09 03/31/25 20:09 03/31/25 20:49 03/31/25 23:15
*Pulse Oximetry
SaO2: 98
Oxygen Mode of Delivery: Room air
Patient hypoxic: no
*Critical Care Note
Total Time (30-74mins, 75-104mins- exclusive of procedures): Not Applicable
Update Note
Update Note:
Ring stuck on right 4th finger. String wrapped tightly around finger and ring removed by pulling string. No wounds noted to finger. SHe has full ROm to her finger. RUE neurovascularly intact. Xrays completed at , no fractures noted. Ring is
in patients possetion. She is discharged home. Will followup with PCP.
ED Attending Note
-
Portions of this chart may have been created with voice recognition software.� Occasional wrong word or��sound alike� substitutions may have occurred due to the inherent limitations of voice recognition software.
Discharge Plan
Departure
Patient Disposition: Home (Routine Discharge)
Date of Disposition: 03/31/25
Time of Disposition: 20:28
Patient with high blood pressure during this ER visit?: No
Condition: Good
Covid-19: Not Applicable
Discharge Problem:
Finger swelling
Instructions: Contusion, RICE Therapy
Prescriptions:
No Action
aspirin 81 MG tablet,chewable
81 mg PO DAILY
glucosamine sulfate 2KCl 1,000 MG tablet
1 tab PO DAILY
Caltrate 600-D Plus Minerals 1 EACH tablet,chewable
1 tab PO DAILY@1800
coenzyme Q10 200 MG capsule
200 mg PO DAILY@1200
fexofenadine [Ct] 180 MG tablet
180 mg PO DAILY@1200
ascorbic acid (vitamin C) [Vitamin C] 500 MG tablet
500 mg PO NOON
levothyroxine 50 MCG tablet
50 mcg PO DAILY
multivitamin with folic acid [Tab-A-Majo] 1 TABLET tablet
1 tab PO DAILY
nifedipine 30 mg Tablet Extended Release
30 mg PO HS Qty: 30 0RF
nifedipine 60 mg Tablet Extended Release
60 mg PO DAILY Qty: 30 0RF
valsartan 160 mg Tablet
320 mg PO DAILY Qty: 60 0RF
rosuvastatin 10 mg Tablet
10 mg PO DAILY Qty: 30 0RF
Activity Restrictions/Additional Instructions:
FOllow up with your family doctor.
Interventions
Interventions:
*Risk Screen - Suicide Last Done: 03/31/25 20:09
*General Assessment Last Done: 03/31/25 20:09
*Neglect/Abuse Screening Last Done: 03/31/25 20:09
*ED- Fall Risk Assessment Last Done: 03/31/25 20:50
*ED COVID-19 Vaccine History Last Done: 03/31/25 20:50
*Nursing Disposition Last Done: 03/31/25 20:51
Discharge Date and Time
Discharge Date/Time: 03/31/25 20:52
Print Language: CYMRO
== END 2025-03-31 20:52 | disposition home or self-care (01) ==
LOC: EMR 20:08
PROVIDERS: EMERGENCY PHYSICIAN Student in an Organized Health Care Education/Training Program; FAMILY PHYSICIAN Family Medicine
DX: S60.221A Contusion of right hand, initial encounter (principal); W19.XXXA Unspecified fall, initial encounter; I10 Essential (primary) hypertension; E78.00 Pure hypercholesterolemia, unspecified
CPT/HCPCS: 99282

== ENCOUNTER 2025-04-17 03:53 | Inpatient (IN) | payer OTHER, SELFPAY ==
[2025-04-16 23:07] VITALS: BP 221/80
[2025-04-16 23:09] VITALS: BP 221/80
[2025-04-16 23:25] LABS: Hematocrit 31.0 % (37.0-47.0); Hemoglobin 10.8 g/dL (12.0-16.0); Mean Corp Hgb Conc. 34.8 g/dL (33.0-37.0); Mean Corpuscular Volume 87.8 fL (81.0-99.0); Nucleated Red Blood Cells % 0 %; Platelet Count 152 10^3/uL (130-400); Red Cell Dist. Width 12.5 % (11.5-14.5)
[2025-04-16 23:47] VITALS: BP 115/65
[2025-04-16 23:49] LABS: ALT (SGPT) 14 U/L (0-35); AST (SGOT) 18 U/L (14-36); Albumin 4.6 g/dl (3.5-5.0); Alkaline Phosphatase 68 U/L (38-126); Blood Urea Nitrogen 43 mg/dl (7-17); Calcium 10.7 mg/dl (8.4-10.2); Carbon Dioxide 21 mmol/L (22-30); Chloride 103 mmol/L (98-107); Estimated Creatinine Clearance 27 ml/min; Glucose 183 mg/dl (70-99); Potassium 4.1 mmol/L (3.5-5.1); Sodium 134 mmol/L (135-145); Total Protein 7.2 g/dl (6.3-8.2); eGFR 40.30
[2025-04-17] VITALS (35 sets, daily range): BP systolic 107–207; BP diastolic 38–62; BMI 26.9
[2025-04-17] LABS: Troponin I 0.059 ng/ml
[2025-04-17] MEDS: LOW STRENGTH ASPIRIN 324 MG PO (01:16)
[2025-04-17] MEDS: NITROSTAT (SUBLINGUAL) 0.4 MG SL (01:17)
--- NOTE | 2025-04-17 02:00 | ED.GENMED ---
History of Present Illness
General
Chief Complaint: Abdominal Pain
Time Seen by Provider: 04/17/25 00:31
History of Present Illness
History of Present Illness:
84-year-old female with history of CKD, hypertension, PAD presenting to the emergency department for nausea and chest discomfort. Around 7 PM this evening she took her valsartan and then started to feel overly nauseous like she was going to vomit
with discomfort and chest. She has tolerated valsartan in the past, took it in the morning time without issue. Daughter was with her, noted that she seemed very uncomfortable, so the ambulance was called. When the medics arrived, was noted to be
very hypertensive, was administered nitroglycerin with subsequent improvement of her symptoms. Patient with recent hospital admission from 03/26 to 03/27 for similar symptom presentation, which time she was admitted for hypertensive emergency. During
admission, have her medications adjusted, was seen by both cardiology and nephrology, with also findings of renal artery occlusion. Patient has that she still feeling slightly uncomfortable, however overall improved. Denies difficulty breathing.
Denies abdominal pain. Denies fever. Denies additional acute medical complaints
Past History
Past History
ED Past Medical History: HTN and Hypercholesterolemia
ED Past Surgical History: None
Phy Exam
Physical Exam
Physical Exam:
General: Well-appearing, no clinical signs of dehydration, nontoxic and in no acute distress
HEENT: protecting airway
Neck: appears supple
CV: Normal heart rate, regular rhythm
Resp: No accessory muscle use, no increased work of breathing, lungs clear to auscultation bilaterally
Abd: Soft and non-distended, no tenderness to palpation
Extremities: No deformities, no swelling
Neuro: alert, no focal neurologic deficit
: deferred
Rectal: deferred
Psych: Normal affect
Skin: Intact
Course
Orders/Labs/Results
Orders:
Orders
04/16/25 23:07
Electrocardiogram (*1) Urgent
Reason for Study: Other
Other Reason for Exam: pressure
04/16/25 23:08
EKG- Treatment ONCE
04/16/25 23:16
Complete Blood Count/With Diff Urgent
Comprehensive Metabolic Panel Urgent
NT-proBNP Urgent
Comment: ADD ON
Troponin I Urgent
04/16/25 23:28
CR Chest - 2 Views Urgent
Comment:
Reason For Exam: pressure
04/16/25 23:59
Add On- LAB Urgent
Tests Added?: pro-bnp
04/17/25 01:12
Aspirin Chewable [Low Strength Aspirin] 324 mg PO NOW STA
Nitroglycerin Sublingual [Nitrostat (Sublingual)] 0.4 mg .ROUTE .STK-MED ONE
Nitroglycerin Sublingual [Nitrostat (Sublingual)] 0.4 mg SL NOW STA
04/17/25 01:54
Electrocardiogram (*1) Urgent
Reason for Study: Chest Pain
EKG- Treatment ONCE
04/17/25 02:00
Nitroglycerin 100 mg/250 ml [Nitroglycerin Premix] 100 mg in 250 ml IV PER PROTOCOL
Currently infusing. Continue current dose and titrate:: Yes
Titrate to keep:: Chest Pain Free
Titrate by mcg/min:: 5 mcg/min, may increase by 10 mcg/min if dose > 20 mcg/min
Frequency of titrations (minutes):: every 3-5 minutes
Maximum dose in mcg/min:: 200
Begin to taper infusion when:: Remained at goal for 2hrs
Taper by mcg/min:: 5 mcg/min
Frequency of taper (minutes) if patient maintains goal:: 30
Taper to off?: Yes
If infusion off & no longer maintaining goal:: Contact Provider
04/17/25 02:05
Troponin I Urgent
Abnormal Lab Results
04/16/25
23:16
RBC 3.53 L 10^6/uL
(4.20-5.40)
Hgb 10.8 L g/dL
(12.0-16.0)
Hct 31.0 L %
(37.0-47.0)
MPV 10.5 H fL
(7.4-10.4)
Sodium 134 L mmol/L
(135-145)
Carbon Dioxide 21 L mmol/L
(22-30)
BUN 43 H mg/dl
(7-17)
Creatinine 1.3 H mg/dL
(0.6-1.0)
Glucose 183 H mg/dl
(70-99)
Calcium 10.7 H mg/dl
(8.4-10.2)
Troponin I 0.059 H* ng/ml
04/16/25 23:16
04/16/25 23:16
Vital Signs
Initial and Last Documented VS:
Initial Vital Signs
BP
221/80
04/16/25 23:07
Last Documented Vital Signs
Temp Pulse Resp BP Pulse Ox
98.1 F 81 14 183/50 94
04/16/25 23:09 04/17/25 02:00 04/17/25 02:00 04/17/25 02:00 04/17/25 02:02
MDM/Problems Addressed
MDM/Problems Addressed:
84-year-old female with history of hypertension, CKD, hyperlipidemia, PAD presenting to the emergency department for nausea, chest discomfort, general unwell. Vital signs on arrival significant for high blood pressure.
On exam, patient is in no acute distress, however did receive nitro prior to my assessment, reports improvement of her symptoms. EKG obtained on arrival given complaint, that significant change from prior EKG. Given patient's symptoms and
presenting blood pressure, again concern for hypertensive emergency, similar presentation to recently admission a few weeks ago. Labs obtained prior to my assessment, which again show elevation of troponin, similar to recent admission. Again
concern for hypertensive emergency and or possible ACS. No STEMI criteria on EKG. given improvement of symptoms after nitro, will administer additional dose. Will also administer aspirin. Chest x-ray obtained, no significant signs of volume
overload or acute cardiopulmonary disease.
02:00- Blood pressure slightly improved after additional dose of nitro and patient again reports some improvement of symptoms. For this reason we will start on nitro drip. Ultimately feel patient warrants admission for continued troponin trending,
management pressure and cardiac consultation may need catheterization which she did not get on recent admission. Patient agreeable plan.
*Pulse Oximetry
SaO2: 94
Oxygen Mode of Delivery: Room air
Patient hypoxic: no
*EKG
Interpreted by ED Provider?: Yes
EKG Intrepretation Date: 04/17/25
EKG Intrepretation Time: 02:01
Interpretation: abnormal
Comparison EKG: no changes
Heart Rate: 93
Rate: normal
Rhythm: sinus and ventricular paced
[place]: left axis deviation
Interval: normal interval
QRS Pattern: wide non-specific
Ischemia: non-specific ST changes
*Critical Care Note
Total Time (30-74mins, 75-104mins- exclusive of procedures): 45
comment:
The high probability of a clinically significant, sudden or life threatening deterioration of the cardiovascular system(s), hypertensive emergency, required my full and direct attention, intervention and personal management. The aggregate critical
care time was 45 minutes. This time is in addition to time spent performing reported procedures but includes the following:
[x] Data Review and interpretation
[x] Patient assessment and monitoring of vital signs
[x] Documentation
[x] Medication orders and management
ED Attending Note
-
Portions of this chart may have been created with voice recognition software.� Occasional wrong word or��sound alike� substitutions may have occurred due to the inherent limitations of voice recognition software.
Discharge Plan
Departure
Patient Disposition: Admit
Date of Disposition: 04/17/25
Time of Disposition: 01:59
Presentation/result/management discussed w/ accepting /DO: Hospitalist
Patient with high blood pressure during this ER visit?: Yes
Condition: Fair
Discharge Problem:
Hypertensive emergency
Prescriptions:
No Action
aspirin 81 MG tablet,chewable
81 mg PO DAILY
glucosamine sulfate 2KCl 1,000 MG tablet
1 tab PO DAILY
Caltrate 600-D Plus Minerals 1 EACH tablet,chewable
1 tab PO DAILY@1800
coenzyme Q10 200 MG capsule
200 mg PO DAILY@1200
fexofenadine [Ct] 180 MG tablet
180 mg PO DAILY@1200
ascorbic acid (vitamin C) [Vitamin C] 500 MG tablet
500 mg PO NOON
levothyroxine 50 MCG tablet
50 mcg PO DAILY
multivitamin with folic acid [Tab-A-Majo] 1 TABLET tablet
1 tab PO DAILY
nifedipine 30 mg Tablet Extended Release
30 mg PO HS Qty: 30 0RF
nifedipine 60 mg Tablet Extended Release
60 mg PO DAILY Qty: 30 0RF
valsartan 160 mg Tablet
320 mg PO DAILY Qty: 60 0RF
rosuvastatin 10 mg Tablet
10 mg PO DAILY Qty: 30 0RF
Referrals:
Ted Rene DO [Family Provider, Family Practice]
Interventions
Interventions:
*Risk Screen - Suicide Last Done: 04/16/25 23:09
*General Assessment Last Done: 04/16/25 23:09
*Neglect/Abuse Screening Last Done: 04/16/25 23:09
*ED- Fall Risk Assessment Last Done: 04/16/25 23:18
*ED COVID-19 Vaccine History Last Done: 04/16/25 23:18
XS-Cektbw-Uqdvmkujow Assessment Last Done: 04/16/25 23:18
Discharge Date and Time
Print Language: BRUNEIAN
[2025-04-17] MEDS: NITROGLYCERIN PREMIX 250 IV (02:23)
[2025-04-17 02:58] LABS: Troponin I 0.062 ng/ml
--- NOTE | 2025-04-17 03:11 | HPS.HSE ---
Family Physician
-
Family Physician: Ted Rene
Chief Complaint
-
Nausea
History of Present Illness
Patient is an 84y F with PMH significant for ASCVD, hypertension and CKD who presents to ED complaining of nausea, shortness of breath and generalized weakness. Patient was admitted to 03/23 - 03/27 for hypertensive emergency. She had multiple
medication adjustments during that visit to improve BP control. Patient and family state that she developed nausea and swelling of the face, hands and feet since beginning these new medications. Since her discharge, she has been started on
hydralazine which has been titrated up to 100mg TID. With her complaints of swelling and nausea she was advised to discontinue her nifedipine.
Patient was feeling fairly well for most of the day today. This evening she developed onset of nausea after taking her evening medications. She became short of breath, 'shaky' and very weak. Patient presented to the ED for further evaluation and
treatment. Patient denies any specific chest pain / pressure. She had no actual emesis. She has been moving her bowels without issues.
Medical History
Past Medical History
Past Medical History: Reports Other
Additional Past Medical History:
ASCVD (Carotid stenosis, Renal Artery Stenosis, PAD, TIA)
Aortic Stenosis
Hypertension
CKD III
Hypothyroidism
GERD
Past Surgical History: Reports Other
Additional Past Surgical History:
Cataracts
Aortic Valve Replacement
Right Rotator Cuff Repair
HALEY
Appendectomy
Sinus Surgery
Social History
Tobacco: Non-smoker
Alcohol: Occasional
Drug: None
Family History
Family History: Other (Father: of [place] at age 71. Mother: of [place] at age 57.)
Allergies / Home Medications
Allergies reflects when Allergies were last updated in [employer]
Home Medications with original date entered in [employer]
Allergy/Medication List:
Allergies
Allergy/AdvReac Type Severity Reaction Status Date / Time
No Known Allergies Allergy Verified 03/22/25 21:18
Home Medications
aspirin 81 mg chewable tablet 81 mg PO DAILY Blood Clot Prevention/Tx 01/01/15
calcium 600 mg-D3 800 unit-mag 40 yi-iscd-vbou-vega-boron chew tablet (Caltrate 600-D Plus Minerals) 1 tab PO DAILY@1800 Supplement 01/01/15
coenzyme Q10 200 mg capsule 200 mg PO DAILY@1200 Supplement 01/01/15
glucosamine sulfate 2KCl 1,000 mg tablet 1 tab PO DAILY Supplement 01/01/15
ascorbic acid (vitamin C) 500 mg tablet (Vitamin C) 500 mg PO NOON Supplement 01/29/22
fexofenadine 180 mg tablet (Ct) 180 mg PO DAILY@1200 Allergies 01/29/22
levothyroxine 50 mcg tablet 50 mcg PO DAILY Thyroid 01/29/22
multivitamin with folic acid 400 mcg tablet (Tab-A-Majo) 1 tab PO DAILY Supplement 01/29/22
rosuvastatin 10 mg tablet 10 mg PO DAILY #30 tabs 03/27/25
valsartan 160 mg tablet 320 mg (2 x 160 mg) PO DAILY #60 tabs 03/27/25
hydralazine 50 mg tablet 100 mg PO TID 04/17/25
Review of Systems
-
History Source: Patient
A 12 point ROS was completed and negative except as noted: Yes
Constitutional: Reports Fatigue and Chills; Denies Fever
Respiratory: Reports Trouble Breathing; Denies Cough
Cardiac: Denies Chest Pain or Palpitations
Abdomen/GI: Reports Nausea; Denies Abdominal Pain, Vomiting or Diarrhea
: Denies Dysuria or Frequency
Musculoskeletal: Reports Edema; Denies Joint Pain
Neurological: Denies Dizzy or Headache
Physical Exam
Vital Signs
Vital Signs
Temp Pulse Resp BP Pulse Ox
98.1 F 81 14 183/50 94
04/16/25 23:09 04/17/25 02:00 04/17/25 02:00 04/17/25 02:00 04/17/25 02:02
Physical Exam
General: Other (84y F in no acute distress.)
HEENT: Moist mucous membranes and PERRLA
Respiratory: Clear; No Wheezes, Rales or Rhonchi
Cardiac: S1/S2, Regular Rhythm and Murmur (IV/ MARY)
GI: Soft, Non Tender, Non Distended and Normal Bowel Sounds
Musculoskeletal: No Clubbing, No Cyanosis and No Edema
Neuro: AO x 3
Laboratory Results
-
04/16/25 23:16
04/16/25 23:16
Laboratory Results
Total Bilirubin 0.9 mg/dl (0.2-1.3) 04/16/25 23:16
AST 18 U/L (14-36) 04/16/25 23:16
ALT 14 U/L (0-35) 04/16/25 23:16
Alkaline Phosphatase 68 U/L (38-126) 04/16/25 23:16
Troponin I 0.062 ng/ml H* 04/17/25 02:05
Impression/Plan
-
A/P: Patient is an 84y F with PMH significant for ASCVD, CKD and hypertension who presents to ED complaining of nausea and SOB.
Hypertensive Emergency
- Admit to IMU for further evaluation and treatment.
- Patient with markedly elevated BP, nausea and abnormal troponin.
- Continue IV NTG and titrate for BP control.
- Begin Imdur in AM and wean off of NTG infusion.
- Multiple med changes recently (stopped nifedipine / added hydralazine since recent admission).
- ? if today's BP elevation is simply secondary acute stress / nausea / etc.
- Nephrology evaluation for additional recommendations.
- Continue hydralazine, valsartan for now and add Imdur as noted above.
- Follow for changes in symptoms.
ASCVD
Abnormal Troponin
- Diffuse vascular disease noted on CT C/A/P done last admission.
- Troponin remains fairly flat compared to values from earlier this month.
- No chest pain today, but complained of nausea and dyspnea.
- Trend troponin.
- Continue ASA, statin, etc.
- BP control as noted above.
- Multiple areas of stenosis noted during recent hospital stay.
- Not clear that intervention would be of benefit - to follow-up with Vascular Surgery as an outpatient.
- ? celiac stenosis as target given new nausea.
Nausea
- ? med effect due to nifedipine or valsartan. ? gastritis / gastroenteritis. ? other.
- No actual emesis. Rule out coronary ischemia as noted above.
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
- Check lactate.
- Supportive care / antiemetics / etc.
CKD III
- Stable. SCr is at / near known baseline - improved from recent admission.
- Follow for changes.
DVT Prophylaxis: Subcut heparin
Code Status: Full
--- NOTE | 2025-04-17 04:55 | PTCARENOTE ---
Patient received from the ED via stretcher accompanied by RN. Transferred to and admitted to IMU 3341. Admission completed. See caster helper charted on worklist flowsheet. SBP 189. LUCY Barrera notified, I requested to give po BP medications early.
Imdur and Hydralazine given. BP improved. AM labs drawn, EKG done. SCDs donned. Complete cares given, CHG cloth bath, new linens. Bed in low and locked position, call renner in reach.
[2025-04-17] MEDS: SYNTHROID 50 MCG PO (05:10)
[2025-04-17 05:25] LABS: Hematocrit 29.0 % (37.0-47.0); Hemoglobin 10.0 g/dL (12.0-16.0); Mean Corp Hgb Conc. 34.5 g/dL (33.0-37.0); Mean Corpuscular Volume 89.0 fL (81.0-99.0); Platelet Count 131 10^3/uL (130-400); Red Cell Dist. Width 12.6 % (11.5-14.5)
[2025-04-17] MEDS: IMDUR (EXTENDED RELEASE) 30 MG PO ×2 (05:40→19:30)
[2025-04-17] MEDS: APRESOLINE 100 MG PO (05:40)
[2025-04-17 06:03] LABS: Troponin I 0.073 ng/ml
[2025-04-17 06:18] LABS: Blood Urea Nitrogen 34 mg/dl (7-17); Calcium 8.4 mg/dl (8.4-10.2); Carbon Dioxide 21 mmol/L (22-30); Chloride 114 mmol/L (98-107); Estimated Creatinine Clearance 35 ml/min; Glucose 98 mg/dl (70-99); Potassium 3.7 mmol/L (3.5-5.1); Sodium 140 mmol/L (135-145); eGFR 55.21
--- NOTE | 2025-04-17 07:15 | PTCARENOTE ---
Pt walked to BR and voided now nauseated and given Zofran as ordered.
--- NOTE | 2025-04-17 07:23 | PTCARENOTE ---
Report given verbally to oncoming lawrence, Lon LUCERO. Questions answered.
[2025-04-17] MEDS: ZOFRAN 4 MG IV (07:31)
--- NOTE | 2025-04-17 08:19 | PTCARENOTE ---
Pt states she has had relief of nausea with Zofran.
--- NOTE | 2025-04-17 08:39 | W.PN.HOSP.TC ---
Today's Communication/Plan
-
See plan
Assessment / Plan
Assessment / Plan
Physical Exam
General: Other (84y F in no acute distress.)
HEENT: Moist mucous membranes and PERRLA
Respiratory: Clear; No Wheezes, Rales or Rhonchi
Cardiac: S1/S2, Regular Rhythm and Murmur (IV/ MARY)
GI: Soft, Non Tender, Non Distended and Normal Bowel Sounds
Musculoskeletal: No Clubbing, No Cyanosis and No Edema
Neuro: AO x 3
Assessment/Plan
84y F with PMH significant for ASCVD, hypertension and CKD who presents to ED complaining of nausea, shortness of breath and generalized weakness. Patient was admitted to 03/23 - 03/27 for hypertensive emergency. She had multiple medication
adjustments during that visit to improve BP control. Patient and family state that she developed nausea and swelling of the face, hands and feet since beginning these new medications. Since her discharge, she has been started on hydralazine which
has been titrated up to 100mg TID. With her complaints of swelling and nausea she was advised to discontinue her nifedipine.
Patient was feeling fairly well for most of the day today. This evening she developed onset of nausea after taking her evening medications. She became short of breath, 'shaky' and very weak. Patient presented to the ED for further evaluation and
treatment. Patient denies any specific chest pain / pressure. She had no actual emesis. She has been moving her bowels without issues.
Patient is an 84y F with PMH significant for ASCVD, CKD and hypertension who presents to ED complaining of nausea and SOB.
Hypertensive Emergency
- Was admitted to IMU
- Patient with markedly elevated BP, nausea and abnormal troponin.
- IV NTG weaned off on the morning of 04/17/25
- Imdur
- Multiple med changes recently (stopped nifedipine / added hydralazine since recent admission).
- ? if today's BP elevation is simply secondary acute stress /etc.
- Nephrology evaluation for additional recommendations. Appreciate cardiology as well given elevated troponin and abdominal pain.
- Continue hydralazine, valsartan for now and added Imdur as noted above.
- Follow for changes in symptoms.
ASCVD
Abnormal Troponin
- Diffuse vascular disease noted on CT C/A/P done last admission.
- Troponin remains fairly flat
- No chest pain today, but complained of nausea and dyspnea.
- Trended troponin.
- Continue ASA, statin, etc.
- BP control as noted above.
- Multiple areas of stenosis noted during recent hospital stay.
- Not clear that intervention would be of benefit - to follow-up with Vascular Surgery as an outpatient.
- ? celiac stenosis as target given new nausea.
Nausea
Per family, abdominal discomfort prior to presentation, suspected associated with severe hypertension
- ? med effect due to nifedipine or valsartan. ? gastritis / gastroenteritis. ? other.
- No actual emesis. Rule out coronary ischemia as noted above.
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
- Lactic acid normal
- Supportive care / antiemetics / etc.
- Abdominal x-ray with some small volume of stool
CKD III
- Stable. SCr is at / near known baseline - improved from recent admission.
- Follow for changes.
DVT Prophylaxis: Subcutaneous heparin
Code Status: Full Code
Anticipated Discharge: Within 24 hours
Subjective/Interval History
-
Date of Service: April 17, 2025
Patient was seen and examined. She reported feeling better; she denied chest pain or abdominal pain.
Objective Data
-
Labs:
Laboratory Results
04/16/25 04/17/25
23:16 05:09
WBC 7.5 6.9
Hgb 10.8 L 10.0 L
Hct 31.0 L 29.0 L
Plt Count 152 131
Sodium 134 L 140
Potassium 4.1 3.7
Chloride 103 114 H
Carbon Dioxide 21 L 21 L
BUN 43 H 34 H
Creatinine 1.3 H 1.0
Glucose 183 H 98
Calcium 10.7 H 8.4 D
Total Bilirubin 0.9
AST 18
ALT 14
Alkaline Phosphatase 68
Vital Signs:
Vital Signs
Temp Pulse Resp BP Pulse Ox
98.1 F 81 13 148/45 95
04/17/25 07:51 04/17/25 07:30 04/17/25 07:30 04/17/25 07:30 04/17/25 07:30
I&O
04/16/25 04/17/25 04/18/25
06:59 06:59 06:59
Intake Total 120 / 120
Balance 120 / 120
[2025-04-17] MEDS: LOW STRENGTH ASPIRIN 81 MG PO (09:11)
[2025-04-17] MEDS: CRESTOR 10 MG PO (09:11)
[2025-04-17] MEDS: PROTONIX 40 MG PO (09:11)
[2025-04-17] MEDS: HEPARIN 5000 UNITS SC ×2 (09:11→19:30)
[2025-04-17] MEDS: DIOVAN 320 MG PO (09:12)
--- NOTE | 2025-04-17 10:30 | W.CON.NEPH ---
Consultation
-
Date/Time Consultation Requested: 04/17/2025 10 AM
Date/Time Consultation Performed: 04/17/2025 10 AM
Requesting Provider: Dr. Cleary
Performing Provider: Dr. Morrison
Reason for Consultation: Hypertension
Medical History
-
Chief Complaint: Edema, nausea
History of Present Illness:
This is an 84-year-old female with CKD 3A baseline creatinine 1.0 which is stable. She has significant hypertension on a multidrug regimen and was admitted to the hospital earlier this month with hypertensive emergency. Her medications were
adjusted at that time and she was ultimately discharged. After discharge she had developed facial swelling with periorbital edema as well as nausea and epigastric discomfort. Her director zone (CCP) discontinued her nifedipine. Subsequently he
increased hydralazine to 100 mg 3 times daily. She then reported continued and worsening nausea after medications. With these persistent symptoms she was brought back to the emergency room and she was admitted. Her blood pressures were elevated
at the time of admission though now are vastly improved. She is on statin therapy for hyperlipidemia which is stable as well as Synthroid for hypothyroidism which is also stable.
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 She also has established left renal artery stenosis as well.
Past Medical History
ASCVD (Carotid stenosis, Renal Artery Stenosis, PAD, TIA)
Aortic Stenosis
Hypertension
CKD III
Hypothyroidism
GERD
Cataracts
Aortic Valve Replacement
Right Rotator Cuff Repair
HALEY
Appendectomy
Sinus Surgery
Past Medical History: Other (Carotid stenosis, PAD, TIA, severe Aortic Stenosis, Hypertension, CKD IIIa, Hypothyroidism, GERD)
Social History
Tobacco: Non-Smoker
Alcohol: Occasional
Drug: None
Employment: Retired
Family History
Family History: CAD (Mother - of early[place] at 57; Father - of [place] at 71)
Allergies / Home Medications
Allergy/AdvReac Type Severity Reaction Status Date / Time
No Known Allergies Allergy Verified 03/22/25 21:18
�Medication �Instructions �Recorded �Confirmed �Type
aspirin 81 mg chewable tablet 81 mg PO DAILY Blood Clot 01/01/15 04/17/25 History
Prevention/Tx
calcium 600 mg-D3 800 unit-mag 40 1 tab PO DAILY@1800 Supplement 01/01/15 04/17/25 History
ez-ttsr-opzv-vega-boron chew
tablet (Caltrate 600-D Plus
Minerals)
coenzyme Q10 200 mg capsule 200 mg PO DAILY@1200 Supplement 01/01/15 04/17/25 History
glucosamine sulfate 2KCl 1,000 mg 1 tab PO DAILY Supplement 01/01/15 04/17/25 History
tablet
ascorbic acid (vitamin C) 500 mg 500 mg PO NOON Supplement 01/29/22 04/17/25 History
tablet (Vitamin C)
fexofenadine 180 mg tablet 180 mg PO DAILY@1200 Allergies 01/29/22 04/17/25 History
(Ct)
levothyroxine 50 mcg tablet 50 mcg PO DAILY Thyroid 01/29/22 04/17/25 History
multivitamin with folic acid 400 1 tab PO DAILY Supplement 01/29/22 04/17/25 History
mcg tablet (Tab-A-Majo)
rosuvastatin 10 mg tablet 10 mg PO DAILY #30 tabs 03/27/25 04/17/25 Rx
valsartan 160 mg tablet 320 mg (2 x 160 mg) PO DAILY #60 03/27/25 04/17/25 Rx
tabs
hydralazine 50 mg tablet 100 mg PO TID 04/17/25 04/17/25 History
Review of Systems
-
Nausea abdominal discomfort
All other systems: Negative unless noted
Physical Exam
Vital Signs
Vital Signs
Temp Pulse Resp BP Pulse Ox
98.1 F 84 17 128/38 95
04/17/25 07:51 04/17/25 10:00 04/17/25 10:00 04/17/25 08:00 04/17/25 10:00
Lab Results
WBC 6.9 10^3/uL (4.8-10.8) 04/17/25 05:09
RBC 3.26 10^6/uL (4.20-5.40) L 04/17/25 05:09
Hgb 10.0 g/dL (12.0-16.0) L 04/17/25 05:09
Hct 29.0 % (37.0-47.0) L 04/17/25 05:09
Plt Count 131 10^3/uL (130-400) 04/17/25 05:09
Sodium 140 mmol/L (135-145) 04/17/25 05:09
Potassium 3.7 mmol/L (3.5-5.1) 04/17/25 05:09
Chloride 114 mmol/L (98-107) H 04/17/25 05:09
Carbon Dioxide 21 mmol/L (22-30) L 04/17/25 05:09
BUN 34 mg/dl (7-17) H 04/17/25 05:09
Creatinine 1.0 mg/dL (0.6-1.0) 04/17/25 05:09
eGFR 55.21 04/17/25 05:09
Glucose 98 mg/dl (70-99) 04/17/25 05:09
Calcium 8.4 mg/dl (8.4-10.2) D 04/17/25 05:09
Bmf-L-Wlgkhrhkuii Pept 1360 pg/ml 04/16/25 23:16
Albumin 4.6 g/dl (3.5-5.0) 04/16/25 23:16
Laboratory Tests
03/27/25
06:12
Creatinine 1[address] chest abdomen pelvis 03/23/2025 with IV contrast
IMPRESSION:
1.No aortic aneurysm or dissection. There is prominent noncalcified atherosclerotic plaque of the thoracic aorta with resultant multifocal mild stenosis. There is extensive mixed density atherosclerotic plaque of the abdominal aorta. There is
high-grade stenosis at the ostium of the left renal artery with an atrophic left kidney. 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
2. Colonic diverticulosis.
3. There is a 4 mm nodule in the lateral right lower lobe which is unchanged from 2015 and likely benign.
Physical Exam
Patient is awake alert oriented and in no distress. Mood and affect were pleasant, insight and judgment were good. Pupils are equal round and reactive to light, extraocular movements are intact, sclera were anicteric. Hearing was normal, ears and
nose are intact. Oropharynx was clear. Neck was supple with trachea midline and no thyromegaly. Heart was regular rate and rhythm without rubs. Lower extremities without edema. Lungs were clear to auscultation bilaterally and with normal
excursion. Abdomen was soft, nontender, with normal active bowel sounds, and no hepatosplenomegaly. Skin was without rash and with normal turgor.
Data Reviewed
-
Radiology: Image Personally Visualized and interpreted (Chest x-ray 720 20-5 by my reading no acute disease)
CT Scan: Report Reviewed by me
Medical Tests (Nuc Med, Echo etc): Image Personally Visualized and interpreted (EKG 04/17/2025 by my reading normal sinus rhythm left axis deviation LVH)
Labs: Labs Reviewed by me
Old Records: Reviewed
Assessment/Plan
-
Impression
Hypertensive emergency
Chronic kidney disease stage IIIa
Troponin elevation
Carotid stenosis
PAD
History of TIA
Severe Aortic Stenosis s/p replacement
Primary hypertension
Hypothyroidism
GERD
contrast nephropathy
Plan
Discussed at length with patient and family.
Currently we are hesitant to make medications to unusable given adverse effects.
For now we will maintain off nifedipine given good blood pressure control.
They are agreeable to reduce hydralazine back to 75 mg 3 times daily to see if this will still cause nausea.
They have outpatient follow-up with vascular surgery regarding left renal artery stenosis
--- NOTE | 2025-04-17 11:00 | PTCARENOTE ---
Pt to abd xray via stretcher on monitor
--- NOTE | 2025-04-17 11:06 | CON.CAR ---
Addendum entered and electronically signed by Darinel Cerda MD 04/17/25 15:31:
I saw and examined the patient.
The SENIOR PRINCIPAL SOFTWARE ENGINEER's note was reviewed and I agree with the note.
Comment: Kourtney Macias is an 84-year-old female (known to Dr. Miranda) with a past medical history of PAD, TIA, [place], aortic stenosis s/p AVR at [facility] in 2014, hypertension, CKD 3 and GERD presented for evaluation of of nausea. She endorsed
associated weakness. She had a recent hospitalization earlier this month with hypertensive emergency.
- Non ischemic myocardial injury, no significant CP
- BP much improved cont meds
We will sign off she has f/u with outpt evp business development, YESSICA.
Original Note:
Consultation
Consultation Request
Date/Time Consultation Requested: 04/17/2025 10:30
Date/Time Consultation Performed: 04/17/2025 10:50
Requesting Provider: Dr. Carpio
Performing Provider: BERNARD Jeong for Dr. Cerda
Reason for Consultation: Abnormal troponin
Medical History
-
Chief Complaint: Nausea
History of Present Illness:
Kourtney Macias is an 84-year-old female (known to Dr. Miranda) with a past medical history of PAD, TIA, [place], aortic stenosis s/p AVR at [facility] in 2014, hypertension, CKD 3 and GERD presented for evaluation of of nausea. She endorsed associated
weakness. She had a recent hospitalization earlier this month with hypertensive emergency. She had multiple medication adjustments at that time. Since discharge, she has seen her evp business development and her corduroy cutting supervisor. Her hydralazine was recently
increased from 75 mg TID to 100 mg TID. Last evening, she developed nausea after taking her medications. She endorsed mild shortness of breath and weakness. No emesis just nausea. She denies chest pain, dizziness, and syncope/presyncope. She is
on the hospitalist service. Nephrology has been consulted for BP management. Cardiology was consulted for an abnormal troponin.
Past Medical History
Past Medical History: GERD, HTN, Renal Failure (CKD) and Other (PAD, TIA, carotid stenosis )
Past Surgical History: Appendectomy and Orthopedic
Social History
Tobacco: Non-Smoker
Alcohol: None
Living: With Family
Employment: Retired
Family History
Family History: Early CAD (Mom [place] at 57)
Allergies / Home Medications
Allergy/AdvReac Type Severity Reaction Status Date / Time
No Known Allergies Allergy Verified 03/22/25 21:18
�Medication �Instructions �Recorded �Confirmed �Type
aspirin 81 mg chewable tablet 81 mg PO DAILY Blood Clot 01/01/15 04/17/25 History
Prevention/Tx
calcium 600 mg-D3 800 unit-mag 40 1 tab PO DAILY@1800 Supplement 01/01/15 04/17/25 History
ar-iuye-ngrr-vega-boron chew
tablet (Caltrate 600-D Plus
Minerals)
coenzyme Q10 200 mg capsule 200 mg PO DAILY@1200 Supplement 01/01/15 04/17/25 History
glucosamine sulfate 2KCl 1,000 mg 1 tab PO DAILY Supplement 01/01/15 04/17/25 History
tablet
ascorbic acid (vitamin C) 500 mg 500 mg PO NOON Supplement 01/29/22 04/17/25 History
tablet (Vitamin C)
fexofenadine 180 mg tablet 180 mg PO DAILY@1200 Allergies 01/29/22 04/17/25 History
(Ct)
levothyroxine 50 mcg tablet 50 mcg PO DAILY Thyroid 01/29/22 04/17/25 History
multivitamin with folic acid 400 1 tab PO DAILY Supplement 01/29/22 04/17/25 History
mcg tablet (Tab-A-Majo)
rosuvastatin 10 mg tablet 10 mg PO DAILY #30 tabs 03/27/25 04/17/25 Rx
valsartan 160 mg tablet 320 mg (2 x 160 mg) PO DAILY #60 03/27/25 04/17/25 Rx
tabs
hydralazine 50 mg tablet 100 mg PO TID 04/17/25 04/17/25 History
Review of Systems
-
History Source: Patient
All other systems: Negative unless noted
Constitutional: Fatigue
EENT: No Symptoms
Respiratory: No Symptoms
Cardiac: No Symptoms
Abdomen/GI: Nausea and Constipated
: No Symptoms
Musculoskeletal: No Symptoms
Skin: No Symptoms
Neurological: No Symptoms
Endocrine: No Symptoms
Hematologic/Lymphatic: No Symptoms
Physical Exam
Vital Signs
Temp Pulse Resp BP Pulse Ox
98.1 F 84 17 128/38 95
04/17/25 07:51 04/17/25 10:00 04/17/25 10:00 04/17/25 08:00 04/17/25 10:00
Lab Results
04/17/25 05:09
04/17/25 05:09
Troponin I 0.073 ng/ml H* 04/17/25 05:09
Ach-M-Lyxqmfhlstt Pept 1360 pg/ml 04/16/25 23:16
Physical Exam
General: Well Developed, Well Nourished, No Apparent Distress and Comfortable
HEENT: Normocephalic, Anicteric and Moist Mucous Membranes
Respiratory: Clear and Non Labored Respirations
Cardiac: S1/S2 and Regular Rhythm; Negative Peripheral Edema
Breast: Deferred by me
GI: Soft, Non Tender, Non Distended and Normal Bowel Sounds
Rectal: Deferred by Provider
Genito-urinary: No Costovertebral Tender
Musculoskeletal: No Clubbing, No Cyanosis and No Edema
Skin: Warm and Dry
Neuro: Awake and Alert
Hematologic/Lymphatic: No Lymphadenopathy
Psych: Calm
Impression / Plan
-
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
left-sided subclavian artery stenosis presented with nausea.
Outpatient Recreation Teacher: Dr. Miranda
Nausea
- Chief complaint of nausea without emesis, endorses associated constipation
- Abdominal CXR pending
Hypertensive urgency, resolved
-Highest documented BP this admission 207/54 early this morning
-BP is being managed by nephrology
-Patient with suspected subclavian artery stenosis; recommendations as per Vascular Surgery (she has an appointment 04/30/[address] Hernandez)
-High-grade stenosis at the ostium of the left renal artery with an atrophic left kidney.
-Secondary workup ordered last admission by nephrology
Bioprosthetic AVR 2014, stable on echocardiogram earlier this month
Nonischemic myocardial injury in the setting of hypertensive urgency
-Trend troponin to peak, currently 0.073
- Chest pain-free
Peripheral arterial disease: Carotid stenosis, renal artery stenosis, occluded iliac
-Suspected subclavian stenosis on the left; recommendations as per vascular surgery.
-Last hospitalization rosuvastatin increased to 10 mg daily as her LDL was not at goal
CKD Stage III, follows with Dr. Mcconnell, nephrology following.
Subclavian artery stenosis, left, BP on right arm only
SUBJECTIVE:
As above.
DATA:
Transthoracic echocardiogram, 03/26/2025:
Normal left ventricular systolic function.
Left ventricular ejection fraction is 60-65%.
LVH
Bioprosthetic aortic valve with a peak gradient of 16mmHg and mean 9mmHg. No
aortic regurgitation.
No prior study available for comparison.
Data Reviewed
-
EKG: Report Reviewed by me (Sinus rhythm, LVH, rate 75)
Radiology: Report Reviewed by me
Labs: Labs Reviewed by me
Old Records: Reviewed
[2025-04-17 13:27] LABS: Troponin I 0.077 ng/ml
--- NOTE | 2025-04-17 14:30 | PTCARENOTE ---
Resumed care from previous shift. Patient A&Ox4, on RA, NSR, BP within goal range, GI/ continent x 1 person assistance, all needs addressed.
[2025-04-17] MEDS: MIRALAX 17 GRAMS PO (14:46)
[2025-04-17] MEDS: APRESOLINE 75 MG PO ×2 (16:59→21:09)
[2025-04-17 17:44] LABS: Troponin I 0.081 ng/ml
--- NOTE | 2025-04-17 17:55 | PTCARENOTE ---
Patient reported feeling muscle/joints ache after taking hydralazine PO. Per patient, this muscle/joints ache happened at home when she took hydralazine.
[2025-04-18] VITALS (14 sets, daily range): BP systolic 108–169; BP diastolic 40–86; PULSE 77–120; O2SAT 95; BMI 28.3
[2025-04-18] MEDS: SYNTHROID 50 MCG PO (04:52)
[2025-04-18 05:02] LABS: Hematocrit 26.3 % (37.0-47.0); Hemoglobin 9.0 g/dL (12.0-16.0); Mean Corp Hgb Conc. 34.2 g/dL (33.0-37.0); Mean Corpuscular Volume 88.0 fL (81.0-99.0); Platelet Count 118 10^3/uL (130-400); Red Cell Dist. Width 12.6 % (11.5-14.5)
--- NOTE | 2025-04-18 05:17 | PTCARENOTE ---
Pt denied complaints throughout shift. Encouraged to alert this RN with any adverse s/s of scheduled medications, denied complaints. Pt ambulatory to bathroom with assistance with monitoring equipment. SCDs in place. Call renner within reach. Care
ongoing.
[2025-04-18 05:28] LABS: Albumin 3.6 g/dl (3.5-5.0); Blood Urea Nitrogen 43 mg/dl (7-17); Calcium 9.0 mg/dl (8.4-10.2); Carbon Dioxide 26 mmol/L (22-30); Chloride 107 mmol/L (98-107); Estimated Creatinine Clearance 22 ml/min; Glucose 107 mg/dl (70-99); Magnesium 2.1 mg/dl (1.6-2.3); Potassium 4.8 mmol/L (3.5-5.1); Sodium 137 mmol/L (135-145); eGFR 31.41
--- NOTE | 2025-04-18 08:32 | W.PN.HOSP.TC ---
Today's Communication/Plan
-
New AVRIL -- see below
Transfer to tele
Assessment / Plan
Assessment / Plan
Physical Exam
General: Other (84y F in no acute distress.)
HEENT: Moist mucous membranes and PERRLA
Respiratory: Clear; No Wheezes, Rales or Rhonchi
Cardiac: S1/S2, Regular Rhythm and Murmur (IV/ MARY)
GI: Soft, Non Tender, Non Distended and Normal Bowel Sounds
Musculoskeletal: No Clubbing, No Cyanosis and No Edema
Neuro: AO x 3
Assessment/Plan
84y F with PMH significant for ASCVD, hypertension and CKD who presents to ED complaining of nausea, shortness of breath and generalized weakness. Patient was admitted to 03/23 - 03/27 for hypertensive emergency. She had multiple medication
adjustments during that visit to improve BP control. Patient and family state that she developed nausea and swelling of the face, hands and feet since beginning these new medications. Since her discharge, she has been started on hydralazine which
has been titrated up to 100mg TID. With her complaints of swelling and nausea she was advised to discontinue her nifedipine.
Patient was feeling fairly well for most of the day today. This evening she developed onset of nausea after taking her evening medications. She became short of breath, 'shaky' and very weak. Patient presented to the ED for further evaluation and
treatment. Patient denies any specific chest pain / pressure. She had no actual emesis. She has been moving her bowels without issues.
Hypertensive Emergency
- Was admitted to IMU. NOW IMPROVED. Can be transferred to telemetry.
- Patient with markedly elevated BP, nausea and abnormal troponin.
- IV NTG weaned off on the morning of 04/17/25
- Imdur
- Multiple med changes recently (stopped nifedipine / added hydralazine since recent admission).
- Nephrology evaluation for additional recommendations. Appreciate cardiology as well given elevated troponin and abdominal pain --> no concern for ACS
- Continue hydralazine, valsartan for now and added Imdur as noted above.
ASCVD
Abnormal Troponin
- Diffuse vascular disease noted on CT C/A/P done last admission.
- Troponin remained fairly flat
- No chest pain today, nausea and dyspnea have resolved.
- Trended troponin.
- Continue ASA, statin, etc.
- BP control as noted above.
- Multiple areas of stenosis noted during recent hospital stay.
- Not clear that intervention would be of benefit - to follow-up with Vascular Surgery as an outpatient.
- ? celiac stenosis as target given new nausea.
AVRIL on CKD 3
-Possibly from effects of patient's really high blood pressure then down to 100 mmHg and we�re seeing the results of that rather than from her medications
-Therefore, okay to continue ARB as per nephro
Nausea
Per family, abdominal discomfort prior to presentation, suspected associated with severe hypertension
- ? med effect due to nifedipine or valsartan. ? gastritis / gastroenteritis. ? other.
- No actual emesis. Rule out coronary ischemia as noted above.
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
- Lactic acid normal
- Supportive care / antiemetics / etc.
- Abdominal x-ray with some small volume of stool
DVT Prophylaxis: Subcutaneous heparin
Code Status: Full Code
Anticipated Discharge: Within 24 hours
Subjective/Interval History
-
Date of Service: April 18, 2025
Patient was seen and examined. She reported feeling well and denied any new symptoms or complaints.
Objective Data
-
Labs:
Laboratory Results
04/18/25
04:50
WBC 6.6
Hgb 9.0 L
Hct 26.3 L
Plt Count 118 L
Sodium 137
Potassium 4.8 D
Chloride 107
Carbon Dioxide 26
BUN 43 H
Creatinine 1.6 H
Glucose 107 H
Calcium 9.0
Vital Signs:
Vital Signs
Temp Pulse Resp BP Pulse Ox
98.6 F 80 15 169/63 96
04/18/25 03:39 04/18/25 06:01 04/18/25 06:01 04/18/25 06:00 04/17/25 19:36
I&O
04/17/25 04/18/25 04/19/25
06:59 06:59 06:59
Intake Total 120 / 120
Balance 120 / 120
[2025-04-18] MEDS: IMDUR (EXTENDED RELEASE) 30 MG PO ×2 (08:37→21:23)
[2025-04-18] MEDS: PROTONIX 40 MG PO (08:37)
[2025-04-18] MEDS: LOW STRENGTH ASPIRIN 81 MG PO (08:37)
[2025-04-18] MEDS: APRESOLINE 75 MG PO ×3 (08:38→21:23)
[2025-04-18] MEDS: DIOVAN 320 MG PO (08:38)
[2025-04-18] MEDS: CRESTOR 10 MG PO (08:39)
[2025-04-18] MEDS: HEPARIN 5000 UNITS SC ×2 (08:39→21:25)
--- NOTE | 2025-04-18 11:15 | PTCARENOTE ---
Assumed care of patient at beginning of this shift from previous RN. Patient OOB to chair x1 assist; denies pain or SOB. Meds administered as ordered; see MAR. See worklist for full assessment and vital signs.
--- NOTE | 2025-04-18 12:34 | CM ---
Addendum entered by Jerrica Naqvi RN 04/18/25 12:56:
Message to Dr Carpio requesting PT Eval.
Plan follow up after seen by PT.
Plan home with [facility].
Original Note:
Patient with Dx Hypertensive Emergency, abnormal troponin, nausea. Room air. Per nurse; A/O, OOB chair, ambulatory in room.
Met with patient and daughter Dana;
the patient resides with her daughter in a 2 story home with 1 JOE.
Daughter states patient has been independent in ADLs and ambulation without using an assistive device.
She has been SOB on the stairs, and therefore has been sleeping on first floor in a recliner. Powder room is available on first floor.
The patient has no DME, prior VN or SNF.
PCP - Ted Rene
Pharmacy - [facility] [place]
Daughter would like patient to have BP check at home and patient/daughter agree to VN - patient chooses [facility].
Referral to [facility] Lia[facility].
Plan home with [facility].
--- NOTE | 2025-04-18 14:02 | W.PN.NEPH.PH ---
Today's Communication / Plan
-
BMP in the morning
Assessment/Plan
-
Impression
Hypertensive emergency
Chronic kidney disease stage IIIa
Troponin elevation
Carotid stenosis
PAD
History of TIA
Severe Aortic Stenosis s/p replacement
Primary hypertension
Hypothyroidism
GERD
contrast nephropathy
Plan
Discussed at length with patient and family.
For now we will maintain off nifedipine given good blood pressure control.
They are agreeable to reduce hydralazine back to 75 mg 3 times daily to see if this will still cause nausea.
They have outpatient follow-up with vascular surgery regarding left renal artery stenosis
Creatinine up to 1.6 we will keep for another 24 hours to see the trend I suspect her creatinine elevation is from her changes in the blood pressure.
-
-
Date of Service: April 18, 2025
CC / HPI / ROS
-
Chief Complaint:
Hypertensive urgency
History of Present Illness:
Presents with hypertensive urgency acute on chronic kidney disease
Review of Systems:
No chest pain or shortness of breath
Labs
-
Labs:
WBC 6.6 10^3/uL (4.8-10.8) 04/18/25 04:50
RBC 2.99 10^6/uL (4.20-5.40) L 04/18/25 04:50
Hgb 9.0 g/dL (12.0-16.0) L 04/18/25 04:50
Hct 26.3 % (37.0-47.0) L 04/18/25 04:50
Plt Count 118 10^3/uL (130-400) L 04/18/25 04:50
Sodium 137 mmol/L (135-145) 04/18/25 04:50
Potassium 4.8 mmol/L (3.5-5.1) D 04/18/25 04:50
Chloride 107 mmol/L (98-107) 04/18/25 04:50
Carbon Dioxide 26 mmol/L (22-30) 04/18/25 04:50
BUN 43 mg/dl (7-17) H 04/18/25 04:50
Creatinine 1.6 mg/dL (0.6-1.0) H 04/18/25 04:50
eGFR 31.41 04/18/25 04:50
Glucose 107 mg/dl (70-99) H 04/18/25 04:50
Calcium 9.0 mg/dl (8.4-10.2) 04/18/25 04:50
Yym-A-Mzzonaqidis Pept 1360 pg/ml 04/16/25 23:16
Albumin 3.6 g/dl (3.5-5.0) 04/18/25 04:50
Physical Exam
-
Vital Signs:
Vital Signs
Temp Pulse Resp BP Pulse Ox
97.9 F 82 7 133/43 94
04/18/25 11:00 04/18/25 12:00 04/18/25 12:00 04/18/25 12:00 04/18/25 12:00
Cardiovascular:: Regular rate and rhythm (murmur)
Respiratory:: Bilateral: CTA
Lung Excursion:: Normal
Abdomen:: Nontender and Soft
Bowel Sounds:: Normal
Extremity Edema:: None: Bilateral:
Multani Catheter: No
--- NOTE | 2025-04-18 14:44 | VNURNOTE ---
Home Health Liaison attempted to meet with patient at bedside. She was sleeping soundly and not disturbed. This author called pt's daughter Dana and discussed [facility] nurse/therapy, visits, schedule and homebound status. Daughter is agreeable and
understands that visits at home will be 2-3 x per week to assess and teach medical management. She is aware that [facility] will contact them for start of care in 1-2 days after discharge from .
[facility] referral completed in [facility] Port.
--- NOTE | 2025-04-18 16:44 | PTOTSP ---
Pt is able to get OOB and ambulate in hallway independently without need for an assistive device. No acute PT needs were identified. PT will sign off.
[2025-04-18] MEDS: MIRALAX 17 GRAMS PO (18:34)
[2025-04-19 03:13] VITALS: BP 143/53
[2025-04-19] MEDS: SYNTHROID 50 MCG PO (04:51)
[2025-04-19 05:16] VITALS: BMI 27.1
[2025-04-19 07:30] VITALS: BP 143/59
[2025-04-19 08:03] LABS: Hematocrit 26.5 % (37.0-47.0); Hemoglobin 9.0 g/dL (12.0-16.0); Mean Corp Hgb Conc. 34.0 g/dL (33.0-37.0); Mean Corpuscular Volume 90.4 fL (81.0-99.0); Platelet Count 113 10^3/uL (130-400); Red Cell Dist. Width 12.3 % (11.5-14.5)
[2025-04-19 08:13] LABS: Blood Urea Nitrogen 44 mg/dl (7-17); Calcium 9.4 mg/dl (8.4-10.2); Carbon Dioxide 26 mmol/L (22-30); Chloride 105 mmol/L (98-107); Estimated Creatinine Clearance 22 ml/min; Glucose 106 mg/dl (70-99); Potassium 4.7 mmol/L (3.5-5.1); Sodium 135 mmol/L (135-145); eGFR 31.41
[2025-04-19] MEDS: HEPARIN 5000 UNITS SC ×2 (08:25→19:34)
[2025-04-19] MEDS: APRESOLINE 75 MG PO ×3 (08:29→21:32)
[2025-04-19] MEDS: PROTONIX 40 MG PO (08:29)
[2025-04-19] MEDS: LOW STRENGTH ASPIRIN 81 MG PO (08:30)
[2025-04-19] MEDS: DIOVAN 320 MG PO (08:30)
[2025-04-19] MEDS: CRESTOR 10 MG PO (08:30)
[2025-04-19] MEDS: IMDUR (EXTENDED RELEASE) 30 MG PO ×2 (08:30→19:34)
[2025-04-19 11:26] VITALS: BP 110/46
--- NOTE | 2025-04-19 13:33 | W.PN.NEPH.PH ---
Today's Communication / Plan
-
Okay for discharge from renal standpoint
Assessment/Plan
-
Impression
Hypertensive emergency
Chronic kidney disease stage IIIa
Troponin elevation
Carotid stenosis
PAD
History of TIA
Severe Aortic Stenosis s/p replacement
Primary hypertension
Hypothyroidism
GERD
contrast nephropathy
Plan
Discussed at length with patient and family.
Stating nausea only an hour after she takes hydralazine but then resolves
The With that said her blood pressure is well-controlled on the 3 medications
Will continue with conservative management. Unless she is refractory to multiple antihypertensive medications with worsening renal function than certainly vascular involvement would be reasonable.
She has outpatient follow-up with vascular surgery regarding left renal artery stenosis.
With her creatinine elevated at 1.6 I would prefer discharge and outpatient follow-up
This was discussed with the family at length and agree to proceed with this plan
-
-
Date of Service: April 19, 2025
CC / HPI / ROS
-
Chief Complaint:
Hypertensive urgency
History of Present Illness:
Presents with hypertensive urgency acute on chronic kidney disease
Review of Systems:
No chest pain or shortness of breath
Nausea after taking the medication self-limiting
Labs
-
Labs:
WBC 6.0 10^3/uL (4.8-10.8) 04/19/25 06:44
RBC 2.93 10^6/uL (4.20-5.40) L 04/19/25 06:44
Hgb 9.0 g/dL (12.0-16.0) L 04/19/25 06:44
Hct 26.5 % (37.0-47.0) L 04/19/25 06:44
Plt Count 113 10^3/uL (130-400) L 04/19/25 06:44
Sodium 135 mmol/L (135-145) 04/19/25 06:44
Potassium 4.7 mmol/L (3.5-5.1) 04/19/25 06:44
Chloride 105 mmol/L (98-107) 04/19/25 06:44
Carbon Dioxide 26 mmol/L (22-30) 04/19/25 06:44
BUN 44 mg/dl (7-17) H 04/19/25 06:44
Creatinine 1.6 mg/dL (0.6-1.0) H 04/19/25 06:44
eGFR 31.41 04/19/25 06:44
Glucose 106 mg/dl (70-99) H 04/19/25 06:44
Calcium 9.4 mg/dl (8.4-10.2) 04/19/25 06:44
Vnb-I-Jtyzcrjzvzw Pept 1360 pg/ml 04/16/25 23:16
Albumin 3.6 g/dl (3.5-5.0) 04/18/25 04:50
Physical Exam
-
Vital Signs:
Vital Signs
Temp Pulse Resp BP Pulse Ox
98.8 F 86 18 110/46 95
04/19/25 11:26 04/19/25 11:26 04/19/25 11:26 04/19/25 11:26 04/19/25 11:26
Cardiovascular:: Regular rate and rhythm (murmur)
Respiratory:: Bilateral: CTA
Lung Excursion:: Normal
Abdomen:: Nontender and Soft
Bowel Sounds:: Normal
Extremity Edema:: None: Bilateral:
Multani Catheter: No
--- NOTE | 2025-04-19 14:16 | W.PN.HOSP.TC ---
Today's Communication/Plan
-
See plan
Assessment / Plan
Assessment / Plan
Physical Exam
General: Other (84y F in no acute distress.)
HEENT: Moist mucous membranes and PERRLA
Respiratory: Clear; No Wheezes, Rales or Rhonchi
Cardiac: S1/S2, Regular Rhythm and Murmur (IV/ MARY)
GI: Soft, Non Tender, Non Distended and Normal Bowel Sounds
Musculoskeletal: No Clubbing, No Cyanosis and No Edema
Neuro: AO x 3
Assessment/Plan
84y F with PMH significant for ASCVD, hypertension and CKD who presents to ED complaining of nausea, shortness of breath and generalized weakness. Patient was admitted to 03/23 - 03/27 for hypertensive emergency. She had multiple medication
adjustments during that visit to improve BP control. Patient and family state that she developed nausea and swelling of the face, hands and feet since beginning these new medications. Since her discharge, she has been started on hydralazine which
has been titrated up to 100mg TID. With her complaints of swelling and nausea she was advised to discontinue her nifedipine.
Patient was feeling fairly well for most of the day today. This evening she developed onset of nausea after taking her evening medications. She became short of breath, 'shaky' and very weak. Patient presented to the ED for further evaluation and
treatment. Patient denies any specific chest pain / pressure. She had no actual emesis. She has been moving her bowels without issues.
Hypertensive Emergency
- Was admitted to IMU. NOW IMPROVED. Transferred to telemetry.
- Patient with markedly elevated BP, nausea and abnormal troponin.
- IV NTG weaned off on the morning of 04/17/25
- Imdur
- Nephrology evaluation for additional recommendations. Appreciate cardiology as well given elevated troponin and abdominal pain --> no concern for ACS
- Continue hydralazine, valsartan for now and added Imdur as noted above.
- Patient's blood pressure is well-controlled on the 3 medications
- Patient has outpatient follow-up with vascular surgery regarding left renal artery stenosis.
Anemia
Thrombocytopenia
- No hemolysis, retic count is normal
- Uncertain etiology
- 4Ts score appears to be 3
- Consulted hematology for further evaluation
ASCVD
Abnormal Troponin
- Diffuse vascular disease noted on CT C/A/P done last admission.
- Troponin remained fairly flat
- Continue ASA, statin, etc.
- BP control as noted above.
- Multiple areas of stenosis noted during recent hospital stay.
- Not clear that intervention would be of benefit - to follow-up with Vascular Surgery as an outpatient.
- ? celiac stenosis as target given new nausea.
AVRIL on CKD 3
-Possibly from effects of patient's really high blood pressure then down to 100 mmHg and we�re seeing the results of that rather than from her medications
-Therefore, okay to continue ARB as per nephro
Nausea
Per family, abdominal discomfort prior to presentation, suspected associated with severe hypertension
- ? med effect due to nifedipine or valsartan. ? gastritis / gastroenteritis. ? other.
- No actual emesis. Rule out coronary ischemia as noted above.
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
- Lactic acid normal
- Supportive care / antiemetics / etc.
- Abdominal x-ray with some small volume of stool
Nausea, Facial and Ankle Swelling for at least 1-2 weeks after taking blood pressure medications
-Nausea is only an hour after patient takes hydralazine but then nausea resolves -- will avoid antiemetics for now due to QTc prolongation
-Could be a rheumatologic issue as there is family history of autoimmune disease
-I communicated with Dr. Evelin Ramsey (drilling foreman) who said she will set up outpatient appointment for the patient soon after discharge
-Could be from hydralazine -- I communicated with patient's associate sales Dr. Mcconnell who said that the Hydralazine was meant to be a temporizing measure until she was seen by Vascular Surgery
DVT Prophylaxis: Subcutaneous heparin
Code Status: Full Code
Anticipated Discharge: Within 24 hours
Subjective/Interval History
-
Date of Service: April 19, 2025
Patient was seen and examined. She reported some nausea after taking her blood pressure medications.
Objective Data
-
Labs:
Laboratory Results
04/19/25
06:44
WBC 6.0
Hgb 9.0 L
Hct 26.5 L
Plt Count 113 L
Sodium 135
Potassium 4.7
Chloride 105
Carbon Dioxide 26
BUN 44 H
Creatinine 1.6 H
Glucose 106 H
Calcium 9.4
Vital Signs:
Vital Signs
Temp Pulse Resp BP Pulse Ox
98.8 F 86 18 110/46 95
04/19/25 11:26 04/19/25 11:26 04/19/25 11:26 04/19/25 11:26 04/19/25 11:26
I&O
04/18/25 04/19/25 04/20/25
06:59 06:59 06:59
Intake Total 720 / 720
Balance 720 / 720
[2025-04-19 15:21] VITALS: BP 164/65
[2025-04-19] MEDS: TYLENOL 650 MG PO (15:39)
[2025-04-19 15:45] LABS: Reticulocyte Count 1.8 % (0.4-2.8)
[2025-04-19 19:56] VITALS: BP 137/56
[2025-04-19 23:52] VITALS: BP 96/57
[2025-04-20 03:58] VITALS: BP 127/61
[2025-04-20] MEDS: SYNTHROID 50 MCG PO (05:27)
[2025-04-20 06:00] VITALS: BMI 26.9
[2025-04-20 07:11] LABS: Hematocrit 26.3 % (37.0-47.0); Hemoglobin 8.9 g/dL (12.0-16.0); Mean Corp Hgb Conc. 33.8 g/dL (33.0-37.0); Mean Corpuscular Volume 87.7 fL (81.0-99.0); Platelet Count 111 10^3/uL (130-400); Red Cell Dist. Width 12.2 % (11.5-14.5)
[2025-04-20 07:52] LABS: Blood Urea Nitrogen 46 mg/dl (7-17); Calcium 9.5 mg/dl (8.4-10.2); Carbon Dioxide 26 mmol/L (22-30); Chloride 103 mmol/L (98-107); Estimated Creatinine Clearance 24 ml/min; Glucose 130 mg/dl (70-99); Potassium 4.5 mmol/L (3.5-5.1); Sodium 134 mmol/L (135-145); eGFR 33.94
[2025-04-20 07:55] VITALS: BP 184/78
[2025-04-20] MEDS: DIOVAN 320 MG PO (08:57)
[2025-04-20] MEDS: APRESOLINE 75 MG PO ×2 (08:58→16:56)
[2025-04-20] MEDS: PROTONIX 40 MG PO (09:00)
[2025-04-20] MEDS: HEPARIN 5000 UNITS SC (09:00)
[2025-04-20] MEDS: CRESTOR 10 MG PO (09:00)
[2025-04-20 09:01] VITALS: BP 169/63; BP 169/73; BP 187/75; PULSE 92; PULSE 93; PULSE 99
[2025-04-20] MEDS: IMDUR (EXTENDED RELEASE) 30 MG PO (09:01)
[2025-04-20] MEDS: LOW STRENGTH ASPIRIN 81 MG PO (09:01)
[2025-04-20] MEDS: FLUSH (NSS) 1 FLUSH IV (09:03)
[2025-04-20 11:54] VITALS: BP 153/62
--- NOTE | 2025-04-20 12:36 | CON.ONC ---
Consultation
-
Date Consultation Requested: 04/19/25
Date Consultation Performed: 04/20/25
Requesting Provider: Dr. Carpio
Performing Provider: Raad Meza
Reason for Consultation: anemia
Impression
Impression
HTN
CKD
anemia - acute / chronic
thrombocytopenia
Plan
Plan
1. Anemia - the etiology of this patient's anemia may be multifactorial in nature. She does have a baseline chronic anemia dating back several years, w/ baseline hemoglobin around 11g/dl. A component of CKD may be affecting erythropoeisis contribing
to her anemia. In hospital her hemoglobin has drifted down to 9g/dl. She has been hospitalized a couple times in the past month; frequent blood draws may have contributed to this 1g/dl decline. Reticulocyte count was normal. Check iron studies w/
ferritin, B12/ folic acid levels, SPEP w/ immunofixation and serum free light chains. Check stools for occult blood x3.
2. Thrombocytopenia - the etiology of this patient's low platelet count is also unclear. She did arrive w/ a platelet count of 131,000, technically thrombocytopenic. It dropped in hospital to 110,000 range. Hydralazine can induce thrombocytopenia;
this was recently started. She was also on heparin during recent hospitalization and re-exposed during this visit w/ thromboprophylaxis; the platelet count drop is not definitively c/w heparin induced thrombocytopenia. Heparin is being stopped.
Would check B12/ folic acid levels.
Will continue to follow with you.
Patient History
History of Present Illness
84y/o female seen in hematology consultation regarding anemia and mild thrombocytopenia.
Review of patient's chart demonstrates a h/o chronic anemia dating back at least 10 years, w/ baseline hemoglobin around 11g/dl.
The patient presented to the [facility] on 04/17 w/ chest discomfort and nausea, in the setting of hypertension. On arrival ot the ER her BP was 221/80. She was admitted and evaluated by both cardiology and nephrology w/ HTN medications adjusted.
CBC on presentation revealed a hemoglobin of 10g/dl, dropping to 9g/dl yesterday and 8.9g/dl today. Platelet count on presentation was 131,000, dropping to 111,000 today. Review of prior platelet counts reveals mild thrombocytopenia during an
admission in 2022; otherwise baseline platelet count around 150-160,000.
She denies any blood in her stool or urine. She denies any excessively dark stools. No SOB at rest or chest pain. No skin rash, fevers, chills, or night sweats.
Past-Medical/Surgical History
PMH:
HTN
CKD
GERD
PAD
TIA
carotid stenosis
PSH:
Appendectomy and Orthopedic
Social History
Tobacco: Non-Smoker
Alcohol: None
Family History
Family History: Early CAD (Mom AR at 57)
Allergies: NKDA
Patient Medication
�Medication �Instructions �Recorded �Confirmed �Last Taken �Type
aspirin 81 mg chewable tablet 81 mg PO DAILY Blood Clot 01/01/15 04/17/25 01/29/22 08:00 History
Prevention/Tx
calcium 600 mg-D3 800 unit-mag 40 1 tab PO DAILY@1800 Supplement 01/01/15 04/17/25 Unknown History
pj-jznq-brnz-vega-boron chew
tablet (Caltrate 600-D Plus
Minerals)
coenzyme Q10 200 mg capsule 200 mg PO DAILY@1200 Supplement 01/01/15 04/17/25 Unknown History
glucosamine sulfate 2KCl 1,000 mg 1 tab PO DAILY Supplement 01/01/15 04/17/25 Unknown History
tablet
ascorbic acid (vitamin C) 500 mg 500 mg PO NOON Supplement 01/29/22 04/17/25 Unknown History
tablet (Vitamin C)
fexofenadine 180 mg tablet 180 mg PO DAILY@1200 Allergies 01/29/22 04/17/25 Unknown History
(Ct)
levothyroxine 50 mcg tablet 50 mcg PO DAILY Thyroid 01/29/22 04/17/25 01/29/22 08:00 History
multivitamin with folic acid 400 1 tab PO DAILY Supplement 01/29/22 04/17/25 Unknown History
mcg tablet (Tab-A-Majo)
rosuvastatin 10 mg tablet 10 mg PO DAILY #30 tabs 03/27/25 04/17/25 Unknown Rx
valsartan 160 mg tablet 320 mg (2 x 160 mg) PO DAILY #60 03/27/25 04/17/25 Unknown Rx
tabs
hydralazine 50 mg tablet 100 mg PO TID Blood Pressure 04/17/25 04/17/25 Unknown History
Active Medications
Generic Name Dose Route Start Last Admin
Trade Name Freq PRN Reason Stop Dose Admin
Acetaminophen 650 mg 04/17/25 04:56 04/19/25 15:39
Acetaminophen 325 Mg Tablet PO 05/15/25 04:55 650 mg
Q4HPRN PRN Administration
Mild Pain / Temp > 101
Aspirin 81 mg 04/17/25 08:00 04/20/25 09:01
Aspirin 81 Mg Chewable Tablet PO 05/15/25 07:59 81 mg
DAILY JESSICA Administration
Heparin Sodium 5,000 units 04/17/25 08:00 04/20/25 09:00
Heparin 5,000 Units/Ml 1 Ml Vial SC 05/15/25 07:59 5,000 units
Q12 JESSICA Administration
Hydralazine HCl 75 mg 04/17/25 10:30 04/20/25 08:58
Hydralazine 50 Mg Tablet PO 05/15/25 05:59 75 mg
TID JESSICA Administration
Isosorbide Mononitrate 30 mg 04/17/25 06:00 04/20/25 09:01
Isosorbide Mononitrate 30 Mg Extended Release Tablet PO 05/15/25 05:59 30 mg
BID JESSICA Administration
Labetalol HCl 10 mg 04/17/25 04:56
Labetalol Hcl 5 Mg/1 Ml (20 Mg/4 Ml) Injection IV 05/15/25 04:55
Q6HPRN PRN
SBP > 200
Levothyroxine Sodium 50 mcg 04/17/25 06:00 04/20/25 05:27
Levothyroxine 50 Mcg Tablet PO 05/15/25 05:59 50 mcg
DAILY @ 0600 JESSICA Administration
Pantoprazole Sodium 40 mg 04/17/25 08:00 04/20/25 09:00
Pantoprazole 40 Mg Delayed Release Tablet PO 05/15/25 07:59 40 mg
DAILY JESSICA Administration
Polyethylene Glycol 17 grams 04/17/25 04:56 04/18/25 18:34
Polyethylene Glycol Powder 17 Grams Packet PO 05/15/25 04:55 17 grams
DAILY PRN Administration
Constipation
Rosuvastatin Calcium 10 mg 04/17/25 08:00 04/20/25 09:00
Rosuvastatin (Crestor) 10 Mg Tablet PO 05/15/25 07:59 10 mg
DAILY JESSICA Administration
Sodium Chloride 0 flush 04/17/25 05:00 04/20/25 09:03
Sodium Chloride 0.9% (Flush) Syringe IV 05/15/25 04:59 1 flush
PER PROTOCOL JESSICA Administration
Valsartan 320 mg 04/17/25 08:00 04/20/25 08:57
Valsartan 160 Mg Tablet PO 05/15/25 07:59 320 mg
DAILY JESSICA Administration
Review of Systems
-
A ROS was performed w/ pertinent findings as per HPI.
Physical Exam
-
General: Well Developed and No Apparent Distress
HEENT: Negative Jaundice
Cardiology: Normal Sinus Rhythm
Pulmonary: Clear
Extremities: No C/C/E
Neurology: Non Focal
Labs
Lab Results
WBC 6.1 10^3/uL (4.8-10.8) 04/20/25 06:57
RBC 3.00 10^6/uL (4.20-5.40) L 04/20/25 06:57
Hgb 8.9 g/dL (12.0-16.0) L 04/20/25 06:57
Hct 26.3 % (37.0-47.0) L 04/20/25 06:57
MCV 87.7 fL (81.0-99.0) 04/20/25 06:57
MCH 29.7 pg (27.0-31.0) 04/20/25 06:57
MCHC 33.8 g/dL (33.0-37.0) 04/20/25 06:57
RDW 12.2 % (11.5-14.5) 04/20/25 06:57
Plt Count 111 10^3/uL (130-400) L 04/20/25 06:57
MPV 10.4 fL (7.4-10.4) 04/20/25 06:57
Abs Immat Gran (auto) 0.0 10^3/uL (0-0.05) 04/16/25 23:16
Absolute Neuts (auto) 5.2 10^3/uL (1.4-6.5) 04/16/25 23:16
Absolute Lymphs (auto) 1.7 10^3/uL (1.2-3.4) 04/16/25 23:16
Absolute Monos (auto) 0.5 10^3/uL (0.1-0.6) 04/16/25 23:16
Absolute Eos (auto) 0.1 10^3/uL (0-0.7) 04/16/25 23:16
Absolute Basos (auto) 0.0 10^3/uL (0-0.2) 04/16/25 23:16
Immature Gran % 0.1 % (0-0.5) 04/16/25 23:16
Neutrophils % 69.0 % (42.2-75.2) 04/16/25 23:16
Lymphocytes % 22.2 % (20.5-51.1) 04/16/25 23:16
Monocytes % 7.0 % (1.7-9.3) 04/16/25 23:16
Eosinophils % 1.3 % (0-6) 04/16/25 23:16
Basophils % 0.4 % (0-2) 04/16/25 23:16
Creatinine 1.5 mg/dL (0.6-1.0) H 04/20/25 06:57
Vital Signs
Vital Signs
Temp Pulse Resp BP Pulse Ox
99.1 F 84 16 153/62 95
04/20/25 11:54 04/20/25 11:54 04/20/25 11:54 04/20/25 11:54 04/20/25 11:54
--- NOTE | 2025-04-20 12:42 | W.PN.HOSP.TC ---
Today's Communication/Plan
-
Discharge today
Assessment / Plan
Assessment / Plan
Physical Exam
General: Other (84y F in no acute distress.)
HEENT: Moist mucous membranes and PERRLA
Respiratory: Clear; No Wheezes, Rales or Rhonchi
Cardiac: S1/S2, Regular Rhythm and Murmur (IV/ MARY)
GI: Soft, Non Tender, Non Distended and Normal Bowel Sounds
Musculoskeletal: No Cyanosis and No Edema
Neuro: AO x 3
Assessment/Plan
84y F with PMH significant for ASCVD, hypertension and CKD who presents to ED complaining of nausea, shortness of breath and generalized weakness. Patient was admitted to 03/23 - 03/27 for hypertensive emergency. She had multiple medication
adjustments during that visit to improve BP control. Patient and family state that she developed nausea and swelling of the face, hands and feet since beginning these new medications. Since her discharge, she has been started on hydralazine which
has been titrated up to 100mg TID. With her complaints of swelling and nausea she was advised to discontinue her nifedipine.
Patient was feeling fairly well for most of the day today. This evening she developed onset of nausea after taking her evening medications. She became short of breath, 'shaky' and very weak. Patient presented to the ED for further evaluation and
treatment. Patient denies any specific chest pain / pressure. She had no actual emesis. She has been moving her bowels without issues.
Hypertensive Emergency
- Was admitted to IMU. NOW IMPROVED. Transferred to telemetry.
- Patient with markedly elevated BP, nausea and abnormal troponin.
- IV NTG weaned off on the morning of 04/17/25
- Imdur
- Nephrology evaluation for additional recommendations. Appreciate cardiology as well given elevated troponin and abdominal pain --> no concern for ACS
- Continue hydralazine, valsartan for now and added Imdur as noted above.
- Patient's blood pressure is well-controlled on the 3 medications
- Patient has outpatient follow-up with vascular surgery regarding left renal artery stenosis.
Anemia
Baseline chronic anemia dating back several years, w/ baseline hemoglobin around 11g/dl.
-No hemolysis, retic count is normal
-Possible etiologies could be frequent blood draws and CKD
-Reticulocyte count was normal.
-Check iron studies w/ ferritin, B12/ folic acid levels
-Check inpatient/outpatient/inpatient SPEP w/ immunofixation and serum free light chains.
-I communicated by [place] [employer] with Dr. Meza of hematology who confirmed that it is okay to check the stools for occult blood 1 time (not 3 times)
-Stool for occult blood test negative today, as per my [place] [employer] communication with patient's nurse
Thrombocytopenia
- Uncertain etiology
- 4Ts score appears to be 3
- Consulted hematology for further evaluation
- Possibly from Hydralazine inducing thrombocytopenia; this was recently started.
- Stop Heparin
- Check B12/ folic acid levels.
PAD, TIA, NAPOLEON, aortic stenosis s/p AVR at [facility] in 2014
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
High-grade stenosis at the ostium of the left renal artery with an atrophic left kidney
Occluded iliac
Abnormal Troponin
- Diffuse vascular disease noted on CT C/A/P done last admission.
- Troponin remained fairly flat
- Continue ASA, statin, etc.
- BP control as noted above.
- Multiple areas of stenosis noted during recent hospital stay.
- Not clear that intervention would be of benefit - to follow-up with Vascular Surgery as an outpatient.
- ? celiac stenosis as target given new nausea.
- Outpatient follow-up with Vascular Surgery (she has an appointment 04/30/[address] Hernandez)
AVRIL on CKD 3
-Possibly from effects of patient's really high blood pressure then down to 100 mmHg and we�re seeing the results of that rather than from her medications
-Therefore, okay to continue ARB as per nephro
-Follow-up with Dr. Mcconnell outpatient
Nausea
Per family, abdominal discomfort prior to presentation, suspected associated with severe hypertension
- ? med effect due to nifedipine or valsartan. ? gastritis / gastroenteritis. ? other.
- No actual emesis. Rule out coronary ischemia as noted above.
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
- Lactic acid normal
- Supportive care / antiemetics / etc.
- Abdominal x-ray with some small volume of stool
Nausea, Facial and Ankle Swelling for at least 1-2 weeks after taking blood pressure medications
-Nausea is only an hour after patient takes hydralazine but then nausea resolves -- will avoid antiemetics for now due to QTc prolongation
-Could be a rheumatologic issue as there is family history of autoimmune disease
-I communicated with Dr. Evelin Ramsey (quality assurance supervisor final) who said she will set up outpatient appointment for the patient soon after discharge
-Could be from hydralazine -- I communicated with patient's handle finisher Dr. Mcconnell who said that the Hydralazine was meant to be a temporizing measure until she was seen by Vascular Surgery
DVT Prophylaxis: SCDs only.
Code Status: Full Code
More than 30 minutes spent in discharge including
Final examination of the patient
Summarizing hospital stay
Instructions for continuing care to all relevant caregivers
Preparation of discharge records, prescriptions, and referral forms
Total time spent (in minutes): 37
Anticipated Discharge: Today
Subjective/Interval History
-
Date of Service: April 20, 2025
Patient was seen and examined. She was doing okay, denied any new complaints. She stated that she would like to go home today.
Objective Data
-
Labs:
Laboratory Results
04/20/25
06:57
WBC 6.1
Hgb 8.9 L
Hct 26.3 L
Plt Count 111 L
Sodium 134 L
Potassium 4.5
Chloride 103
Carbon Dioxide 26
BUN 46 H
Creatinine 1.5 H
Glucose 130 H
Calcium 9.5
Vital Signs:
Vital Signs
Temp Pulse Resp BP Pulse Ox
99.1 F 84 16 153/62 95
04/20/25 11:54 04/20/25 11:54 04/20/25 11:54 04/20/25 11:54 04/20/25 11:54
I&O
04/19/25 04/20/25 04/21/25
06:59 06:59 06:59
Intake Total 720 / 720 960 / 960
Balance 720 / 720 960 / 960
--- NOTE | 2025-04-20 13:52 | W.PN.NEPH.PH ---
Today's Communication / Plan
-
Continue current blood pressure regimen
Assessment/Plan
-
Impression
Hypertensive emergency
Chronic kidney disease stage IIIa
Troponin elevation
Carotid stenosis
PAD
History of TIA
Severe Aortic Stenosis s/p replacement
Primary hypertension
Hypothyroidism
GERD
contrast nephropathy
Plan
Discussed at length with patient and family.
Stating nausea only an hour after she takes hydralazine but then resolves
The With that said her blood pressure is well-controlled on the 3 medications
Will continue with conservative management. Unless she is refractory to multiple antihypertensive medications with worsening renal function than certainly vascular involvement would be reasonable.
She has outpatient follow-up with vascular surgery regarding left renal artery stenosis.
Creatinine stable at 1.5
Hematology consulted for thrombocytopenia noted
This was discussed with the family at length and agree to proceed with this plan
-
-
Date of Service: April 20, 2025
CC / HPI / ROS
-
Chief Complaint:
Hypertensive urgency
History of Present Illness:
Presents with hypertensive urgency acute on chronic kidney disease
Review of Systems:
No chest pain or shortness of breath
Nausea after taking the medication self-limiting
Labs
-
Labs:
WBC 6.1 10^3/uL (4.8-10.8) 04/20/25 06:57
RBC 3.00 10^6/uL (4.20-5.40) L 04/20/25 06:57
Hgb 8.9 g/dL (12.0-16.0) L 04/20/25 06:57
Hct 26.3 % (37.0-47.0) L 04/20/25 06:57
Plt Count 111 10^3/uL (130-400) L 04/20/25 06:57
Sodium 134 mmol/L (135-145) L 04/20/25 06:57
Potassium 4.5 mmol/L (3.5-5.1) 04/20/25 06:57
Chloride 103 mmol/L (98-107) 04/20/25 06:57
Carbon Dioxide 26 mmol/L (22-30) 04/20/25 06:57
BUN 46 mg/dl (7-17) H 04/20/25 06:57
Creatinine 1.5 mg/dL (0.6-1.0) H 04/20/25 06:57
eGFR 33.94 04/20/25 06:57
Glucose 130 mg/dl (70-99) H 04/20/25 06:57
Calcium 9.5 mg/dl (8.4-10.2) 04/20/25 06:57
Dyy-U-Gfwlrxrukbf Pept 1360 pg/ml 04/16/25 23:16
Albumin 3.6 g/dl (3.5-5.0) 04/18/25 04:50
Physical Exam
-
Vital Signs:
Vital Signs
Temp Pulse Resp BP Pulse Ox
99.1 F 84 16 153/62 95
04/20/25 11:54 04/20/25 11:54 04/20/25 11:54 04/20/25 11:54 04/20/25 11:54
Cardiovascular:: Regular rate and rhythm (murmur)
Respiratory:: Bilateral: CTA
Lung Excursion:: Normal
Abdomen:: Nontender and Soft
Bowel Sounds:: Normal
Extremity Edema:: None: Bilateral:
Multani Catheter: No
[2025-04-20 13:58] LABS: Iron 30 ug/dl (37-170)
[2025-04-20 14:25] LABS: Ferritin 110.0 ng/ml (11.1-264.0)
[2025-04-20 14:56] LABS: Folate > 20.0 ng/ml (2.76-20)
[2025-04-20 15:54] LABS: Total Iron Binding Capacity 274 ug/dl (265-497)
[2025-04-20 15:56] VITALS: BP 146/48
--- NOTE | 2025-04-20 15:59 | PTCARENOTE ---
Pt AAO x3, VILLARREAL; OOB to chair/ambulates to BR with minimal assistance; denies weakness/dizziness. VSS. On room air- pulse ox 95%, no SOB noted. Abd large, soft, isma PO well. Voids in BR without difficulty. Resting in bed at present, no c/o.
Anticipating DC to home. Will continue to monitor.
--- NOTE | 2025-04-20 16:54 | W.DCSUMMARY ---
Discharge Summary
Discharge Data
Date of Admission: 04/17/25
Date of Discharge: 04/20/25
Total time spent discharging patient (in min): 37
-
Pending Results: No
Hospital Course
84-year-old female (known to Dr. Miranda) with a past medical history of PAD, TIA, NAPOLEON, aortic stenosis s/p AVR at [facility] in 2014, hypertension, CKD 3 and GERD who presented with nausea, shortness of breath and generalized weakness. She was admitted
with hypertensive emergency and started on nitroglycerin drip. Patient was also started on Imdur for her blood pressure, with good response. Road Commissioner was consulted by kaveh and were okay with reducing Hydralazine dose due to nausea.
Cardiology was consulted given elevated troponin and there was no concern from their standpoint. Patient developed new acute kidney injury, possibly from effects of patient's really high blood pressure which then decreased down to ~100 mmHg -- and
the acute kidney injury was determined to be because of this blood pressure shift. It was okay and also necessary to continue the Valsartan as per nephrology. Patient developed anemia and thrombocytopenia of uncertain etiology for which hematology
was consulted. Iron studies suggested iron deficiency anemia and she was prescribed iron medication. Given her complaints of nausea, facial and ankle swelling for at least 1-2 weeks after taking blood pressure medications (especially concern for
adverse effects from Hydralazine), her case was discussed with on-call physicist [employer] and they said they could see her within 1 week after discharge to further evaluate. I communicated with patient's cyber intelligence analyst Dr. Mcconnell who said that the
Hydralazine was meant to be a temporizing measure until she was seen by Vascular Surgery. Patient would need outpatient follow-up with vascular surgery regarding left renal artery stenosis. Patient was stable for discharge with close outpatient
follow-up with her outpatient providers.
Discharge Plan
-
Patient Disposition: Home with Home Care
Discharge Diagnosis/Procedures: Hypertensive Emergency
Anemia
Baseline chronic anemia dating back several years, with baseline hemoglobin around 11 g/dL
Thrombocytopenia
PAD, TIA, NAPOLEON, aortic stenosis s/p AVR at [facility] in 2015
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
High-grade stenosis at the ostium of the left renal artery with an atrophic left kidney
Occluded iliac
Abnormal Troponin
AVRIL on CKD 3
Nausea
Nausea, Facial and Ankle Swelling for at least 1-2 weeks after taking blood pressure medications
Condition: Fair
Diet: Low Fat, Low Cholesterol, Low Sodium and 2 Gram Sodium
Activity: As tolerated
Blood Work: CBC, BMP and Magnesium with your primary care provider's office in 3 to 4 days
Other Services: VN
Activity Restrictions/Additional Instructions:
Rheumatology appointment with Dr. Evelin Ramsey has been set up for you -- they are supposed to call you soon but if they don't please call them.
Follow-up with Vascular Surgeon Dr. Hernandez in the next 1-2 weeks as scheduled.
Referrals:
Ted Rene DO [Family Provider, Family Practice] - in less than 1 week
Evelin Ramsey MD [Active, Rheumatology] - in less than 1 week
Referral Note: Diffuse Joint Pains, On and off Swelling of Joints. Hydralazine?
Raad Meza MD [Active, Hematology / Oncology] - in one to two weeks
Referral Note: Hospital Follow-Up. Anemia and Thrombocytopenia
Symone Mcconnell MD [Active, Nephrology] - in one to two weeks
Referral Note: Hospital Follow-Up
Additional Discharge Medication Instructions: Hydralazine has been reduced and new dose sent to your pharmacy.
Isosorbide Mononitrate is a new medication.
Prescriptions:
New
hydralazine 50 mg Tablet
75 mg PO TID Qty: 90 1RF
isosorbide mononitrate 30 mg Tablet Extended Release 24 Hr
30 mg PO BID Qty: 60 1RF
ferrous sulfate 325 mg (65 mg iron) tablet,delayed release (DR/EC)
325 mg PO Q48H Qty: 14 0RF
Continued
aspirin 81 MG tablet,chewable
81 mg PO DAILY
glucosamine sulfate 2KCl 1,000 MG tablet
1 tab PO DAILY
Caltrate 600-D Plus Minerals 1 EACH tablet,chewable
1 tab PO DAILY@1800
coenzyme Q10 200 MG capsule
200 mg PO DAILY@1200
fexofenadine [Ct] 180 MG tablet
180 mg PO DAILY@1200
ascorbic acid (vitamin C) [Vitamin C] 500 MG tablet
500 mg PO NOON
levothyroxine 50 MCG tablet
50 mcg PO DAILY
multivitamin with folic acid [Tab-A-Majo] 1 TABLET tablet
1 tab PO DAILY
valsartan 160 mg Tablet
320 mg PO DAILY Qty: 60 0RF
rosuvastatin 10 mg Tablet
10 mg PO DAILY Qty: 30 0RF
Discontinued
hydralazine 50 mg Tablet
100 mg PO TID
Discharge Orders:
Discharge Patient (As Directed); Ordered 04/20/25
Ordered By: Epifanio Carpio
Discharge Date and Time
Discharge Date/Time: 04/20/25 18:06
Print Language: NIUEAN
[2025-04-20 17:05] LABS: Vitamin B12 724 pg/ml (239-931)
== END 2025-04-20 18:06 | disposition home health service (06) | DRG 305 ==
LOC: 4 EAST ACU 03:53
PROVIDERS: Emergency Medicine; ADMITTING PHYSICIAN Hospitalist; ATTENDING PHYSICIAN Hospitalist; CONSULT PHYSICIAN Internal Medicine Cardiovascular Disease; CONSULT PHYSICIAN Internal Medicine Hematology & Oncology; CONSULT PHYSICIAN Specialist; EMERGENCY PHYSICIAN Student in an Organized Health Care Education/Training Program; FAMILY PHYSICIAN Family Medicine
DX: I16.1 Hypertensive emergency (principal); I5A Non-ischemic myocardial injury (non-traumatic); N17.9 Acute kidney failure, unspecified; D69.6 Thrombocytopenia, unspecified; D63.1 Anemia in chronic kidney disease; I70.8 Atherosclerosis of other arteries; N18.31 Chronic kidney disease, stage 3a; I25.10 Atherosclerotic heart disease of native coronary artery without angina pectoris; I12.9 Hypertensive chronic kidney disease with stage 1 through stage 4 chronic kidney disease, or unspecified chronic kidney disease; I70.1 Atherosclerosis of renal artery; E03.9 Hypothyroidism, unspecified; K21.9 Gastro-esophageal reflux disease without esophagitis; I35.0 Nonrheumatic aortic (valve) stenosis; E78.00 Pure hypercholesterolemia, unspecified; I65.23 Occlusion and stenosis of bilateral carotid arteries; R11.0 Nausea; R22.43 Localized swelling, mass and lump, lower limb, bilateral; R22.0 Localized swelling, mass and lump, head; Z86.73 Personal history of transient ischemic attack (TIA), and cerebral infarction without residual deficits; Z79.82 Long term (current) use of aspirin
CPT/HCPCS: 71046; 74019; 80048; 80053; 82040; 82247; 82248; 82607; 82728; 82746; 83540; 83550; 83605; 83735; 83880; 84484; 85025; 85027; 85045; 93005; 97162; 99291

== ENCOUNTER → 2025-04-24 13:25 | Outpatient (REF) | payer OTHER, SELFPAY | LOC: RAD 13:25 | PROVIDERS: ATTENDING PHYSICIAN Surgery Vascular Surgery; FAMILY PHYSICIAN Family Medicine | DX: I73.9 Peripheral vascular disease, unspecified (principal) | CPT/HCPCS: 93922; 93925 ==

== ENCOUNTER → 2025-05-10 09:25 | Outpatient (REF) | payer OTHER, SELFPAY | LOC: RAD 09:25 | PROVIDERS: ATTENDING PHYSICIAN Surgery Vascular Surgery; FAMILY PHYSICIAN Family Medicine; REFERRING PHYSICIAN Internal Medicine Rheumatology | DX: I65.23 Occlusion and stenosis of bilateral carotid arteries (principal); M19.90 Unspecified osteoarthritis, unspecified site; M25.471 Effusion, right ankle | CPT/HCPCS: 73080; 73130; 73630; 93880 ==

== ENCOUNTER → 2025-05-24 14:43 | Outpatient (REF) | payer OTHER, SELFPAY | LOC: HWRAD 14:43 | PROVIDERS: ATTENDING PHYSICIAN Nurse Practitioner Family | DX: R60.0 Localized edema (principal); E04.9 Nontoxic goiter, unspecified | CPT/HCPCS: 76536 ==

== ENCOUNTER 2025-06-13 13:58 | Inpatient (IN) | payer OTHER, SELFPAY ==
[2025-06-13] VITALS (9 sets, daily range): BP systolic 127–190; BP diastolic 40–62; BMI 26.6; BMI 30.2
--- NOTE | 2025-06-13 09:35 | ED.GENMED ---
History of Present Illness
General
Chief Complaint: Blood Pressure Problem
Source: patient and family
Exam Limitations: none
Time Seen by Provider: 06/13/25 09:02
Nursing documentation reviewed up to this point in time: agreed with
History of Present Illness
History of Present Illness:
85-year-old female hypertension chronic kidney disease followed by nephrology Risa outside cardiology and vascular surgery, she apparently has some peripheral vascular disease solitary kidney, blood pressure has been elevated systolic in the
200 range since the weekend she spoke to her office workforce planner made some changes in the timing of her doses, last night pressure was running high, despite being checked multiple times, no chest pain no shortness of breath she appears to feel anxious
about this, nauseous without headache no chest pain, came in today to be evaluated has not had her morning meds yet,
Past History
Past History
ED Past Medical History: HTN and Hypercholesterolemia
ED Past Surgical History: None
Social History
Tobacco: Non-smoker
Alcohol: None
Drug: None
Personal:
Living: with family
Employment: Retired
Phy Exam
Physical Exam
Physical Exam:
Physical Exam
General: no apparent distress, not acutely ill
Neck: No jaundice
Heart: s1/s2 regular rate and rhythm, no murmur. equal radial pulses.
Lungs: no acute respiratory distress. clear bilaterally
Abdomen: Nontender
Neuro: alert and oriented. no focal neurological deficits normal finger-nose clear speech no facial palsy
Skin: no rash
Psychiatric: well kept. interactive and cooperative
Extremities: no edema.
Course
Orders/Labs/Results
Orders:
Orders
06/13/25 09:16
Electrocardiogram (*1) Stat
Reason for Study: Other
Other Reason for Exam: chest pain
EKG- Treatment ONCE
06/13/25 09:32
Clonidine [Catapres] 0.1 mg PO NOW STA
06/13/25 09:33
HydrALAZINE [Apresoline] 50 mg PO NOW STA
06/13/25 09:50
Complete Blood Count/With Diff Urgent
Comprehensive Metabolic Panel Urgent
Magnesium Urgent
06/13/25 09:58
ISOSORBIDE MONOnitrate ER [Imdur (Extended Release)] 60 mg PO NOW STA
06/13/25 10:48
Valsartan [Diovan] 320 mg PO NOW STA
06/13/25 10:59
NEPHROLOGY CONSULT Urgent
Consulting Provider: Jonathon Boothe
Was physician already notified: Yes
06/13/25 12:58
Vascular Surgery Consult Routine
Consulting Provider: Tomasz Hernandez
Was physician already notified: Yes
Abnormal Lab Results
06/13/25
09:50
RBC 3.18 L 10^6/uL
(4.20-5.40)
Hgb 9.9 L g/dL
(12.0-16.0)
Hct 28.2 L %
(37.0-47.0)
MCH 31.1 H pg
(27.0-31.0)
MPV 10.7 H fL
(7.4-10.4)
Absolute Lymphs (auto) 1.0 L 10^3/uL
(1.2-3.4)
Lymphocytes % 15.9 L %
(20.5-51.1)
BUN 45 H mg/dl
(7-17)
Creatinine 1.3 H mg/dL
(0.6-1.0)
Glucose 126 H mg/dl
(70-99)
06/13/25 09:50
06/13/25 09:50
Vital Signs
Initial and Last Documented VS:
Initial Vital Signs
Temp Pulse Resp BP Pulse Ox
98.1 F 67 18 178/62 96
06/13/25 07:37 06/13/25 07:37 06/13/25 07:37 06/13/25 07:37 06/13/25 07:37
Last Documented Vital Signs
Temp Pulse Resp BP Pulse Ox
98.1 F 52 10 160/40 96
06/13/25 07:37 06/13/25 12:15 06/13/25 12:15 06/13/25 12:00 06/13/25 12:15
MDM/Problems Addressed
Differential Diagnosis Includes:
Accelerated hypertension hypertensive urgency anxiety, chronic kidney disease
MDM/Problems Addressed:
High blood pressure
Chronic conditions affecting care: HTN
Acute Exacerbation and/or Progression of Chronic Illness: HTN
*Pulse Oximetry
SaO2: 96
Oxygen Mode of Delivery: Room air
Patient hypoxic: no
*Critical Care Note
Total Time (30-74mins, 75-104mins- exclusive of procedures): Not Applicable
Update Note
Update Note:
930, patient appears well modest elevation of blood pressure have asked pharmacy to reconcile her meds including dosing intervals, does have a history of chronic kidney disease will check electrolytes, EKG give her morning dose of meds that she has
not had yet
1 PM update blood pressure improved reviewed with renal
Patient will be admitted for medical optimization plan for renal artery stent vascular updated hospitalist updated
ED Attending Note
-
Portions of this chart may have been created with voice recognition software.� Occasional wrong word or��sound alike� substitutions may have occurred due to the inherent limitations of voice recognition software.
Discharge Plan
Departure
Patient Disposition: Admit
Date of Disposition: 06/13/25
Time of Disposition: 12:59
Admit to: Telemetry
Presentation/result/management discussed w/ accepting MD/DO: Hospitalist
Patient with high blood pressure during this ER visit?: Yes
Condition: Fair
Covid-19: Not Applicable
Discharge Problem:
Hypertensive urgency
Prescriptions:
No Action
aspirin 81 MG tablet,chewable
81 mg PO DAILY
glucosamine sulfate 2KCl 1,000 MG tablet
1 tab PO DAILY
Caltrate 600-D Plus Minerals 1 EACH tablet,chewable
1 tab PO DAILY@1800
coenzyme Q10 200 MG capsule
300 mg PO DAILY@1200
ascorbic acid (vitamin C) [Vitamin C] 500 MG tablet
500 mg PO NOON
levothyroxine 50 MCG tablet
50 mcg PO DAILY
multivitamin with folic acid [Tab-A-Majo] 1 TABLET tablet
1 tab PO DAILY
valsartan 160 mg Tablet
320 mg PO DAILY Qty: 60 0RF
rosuvastatin 10 mg Tablet
10 mg PO DAILY Qty: 30 0RF
clonidine HCl 0.1 mg tablet
0.1 mg PO TID
nifedipine 30 mg tablet extended release
30 mg PO HS
isosorbide mononitrate 60 mg tablet extended release 24 hr
60 mg PO BID
hydralazine 50 mg tablet
50 mg PO TID
Referrals:
Ted Rene DO [Family Provider, Family Practice]
Interventions
Interventions:
*Risk Screen - Suicide Last Done: 06/13/25 07:37
*General Assessment Last Done: 06/13/25 07:37
*Neglect/Abuse Screening Last Done: 06/13/25 07:37
*ED- Fall Risk Assessment Last Done: 06/13/25 09:33
*ED COVID-19 Vaccine History Last Done: 06/13/25 09:33
ED- Cardiac Assessment Last Done: 06/13/25 09:33
ED- Neurological Assessment Last Done: 06/13/25 09:33
ED- Pulmonary Assessment Last Done: 06/13/25 09:33
Discharge Date and Time
Print Language: ROMANIAN
[2025-06-13] MEDS: CATAPRES 0.1 MG PO ×3 (09:59→21:53)
[2025-06-13] MEDS: APRESOLINE 50 MG PO ×3 (09:59→21:48)
[2025-06-13 10:04] LABS: Hematocrit 28.2 % (37.0-47.0); Hemoglobin 9.9 g/dL (12.0-16.0); Mean Corp Hgb Conc. 35.1 g/dL (33.0-37.0); Mean Corpuscular Volume 88.7 fL (81.0-99.0); Nucleated Red Blood Cells % 0 %; Platelet Count 130 10^3/uL (130-400); Red Cell Dist. Width 12.4 % (11.5-14.5)
[2025-06-13 10:35] LABS: ALT (SGPT) 33 U/L (0-35); AST (SGOT) 24 U/L (14-36); Albumin 4.5 g/dl (3.5-5.0); Alkaline Phosphatase 47 U/L (38-126); Blood Urea Nitrogen 45 mg/dl (7-17); Calcium 10.0 mg/dl (8.4-10.2); Carbon Dioxide 27 mmol/L (22-30); Chloride 103 mmol/L (98-107); Estimated Creatinine Clearance 27 ml/min; Glucose 126 mg/dl (70-99); Magnesium 2.2 mg/dl (1.6-2.3); Potassium 4.3 mmol/L (3.5-5.1); Sodium 137 mmol/L (135-145); Total Protein 7.0 g/dl (6.3-8.2); eGFR 40.05
[2025-06-13] MEDS: IMDUR (EXTENDED RELEASE) 60 MG PO ×2 (11:31→20:21)
[2025-06-13] MEDS: DIOVAN 320 MG PO (11:31)
--- NOTE | 2025-06-13 12:57 | HPS.HSE ---
Addendum entered and electronically signed by Julieta Acuña PA-C 06/13/25 16:48:
Chest X-Ray shows evidence of mild pulmonary vascular congestion, and BNP is elevated compared to prior raising concern for volume overload.
Give Lasix 40mg IV x one dose and monitor for response with output and blood pressure readings.
Addendum entered and electronically signed by Justa Simental MD 06/13/25 15:32:
This is an addendum to H&P written by Julieta Gutierrez on 06/13/2025. �Patient seen and examined independently with PA.
85-year-old female past medical history of coronary stenosis, left subclavian artery stenosis, left renal artery stenosis, CAD, aortic stenosis status post valve replacement, hypertension, CKD3, hypertension, hypothyroidism, GERD, presenting with
increasing difficulty with controlling blood pressure. �Has shortness of breath but no blurry vision or chest pain. �Also poor appetite, nausea, tunnel vision.
Was admitted in April with changes in blood pressure regimen and later adjustments by her tub tender.
Blood pressure as high as 170 to 213 over the weekend. �JVD on examination.
Vital signs show blood pressure of 190/56 currently 176/50.
Labs show hemoglobin stable at 9.9. �Prior echocardiogram showed EF of 60 to 65%, bioprosthetic aortic valve with no aortic regurgitation. �Prior CTA of the abdomen pelvis showed prominent noncalcified atherosclerotic plaque at the thoracic aorta
with resultant multifocal mild stenosis. �There is extensive mixed density atherosclerotic plaque of the abdominal aorta. �High-grade stenosis of the ostium and left renal artery with atrophic left kidney.
Patient with uncontrolled hypertension with improvement after receiving her home blood pressure medications. �Also with dyspnea concerning for underlying CHF.
Continue blood pressure regimen that she is on currently which includes valsartan, nifedipine, isosorbide, hydralazine, clonidine. �Check chest x-ray, cardiac BNP. �Nephrology consulted. �Nephrology recommends vascular consult for potential stenting
of the left renal artery stenosis.�
Original Note:
Family Physician
-
Family Physician: Ted J. [place]
Chief Complaint
-
Elevated Blood Pressure
History of Present Illness
Patient is an 85 y/o female past medical history of ASCVD, CKD III, Aortic stenosis, Hypothyroidism and prior hospitalization last month for hypertensive urgency who presents with elevated blood pressure. Patient reports her blood pressure was
running high all weekend. She contacted her tub tender who made some adjustments to her medications, but states her blood pressure is still running high. She reports shortness of breath, particularly dyspnea on exertion. She notes some weight
loss due to poor appetite. She denies headache or vision changes. She denies chest pain.
Medical History
Past Medical History
Past Medical History: Reports Other
Additional Past Medical History:
ASCVD (Carotid stenosis, Renal Artery Stenosis, PAD, TIA)
Aortic Stenosis
Hypertension
CKD III
Anemia of Chronic Disease
Hypothyroidism
GERD
Past Surgical History: Reports Other
Additional Past Surgical History:
Cataracts
Aortic Valve Replacement
Right Rotator Cuff Repair
HALEY
Appendectomy
Sinus Surgery
Social History
Tobacco: Non-smoker
Alcohol: Occasional
Drug: None
Family History
Family History: Other (Father: of [place] at age 71. Mother: of [place] at age 57.)
Allergies / Home Medications
Allergies reflects when Allergies were last updated in [facility].
Home Medications with original date entered in [facility]
Allergy/Medication List:
Allergies
Allergy/AdvReac Type Severity Reaction Status Date / Time
No Known Allergies Allergy Verified 06/13/25 07:37
Home Medications
aspirin 81 mg chewable tablet 81 mg PO DAILY Blood Clot Prevention/Tx 01/01/15
calcium 600 mg-D3 800 unit-mag 40 nn-dqzw-usmd-vega-boron chew tablet (Caltrate 600-D Plus Minerals) 1 tab PO DAILY@1800 Supplement 01/01/15
coenzyme Q10 200 mg capsule 300 mg PO DAILY@1200 Supplement 01/01/15
glucosamine sulfate 2KCl 1,000 mg tablet 1 tab PO DAILY Supplement 01/01/15
ascorbic acid (vitamin C) 500 mg tablet (Vitamin C) 500 mg PO NOON Supplement 01/29/22
levothyroxine 50 mcg tablet 50 mcg PO DAILY Thyroid 01/29/22
multivitamin with folic acid 400 mcg tablet (Tab-A-Majo) 1 tab PO DAILY Supplement 01/29/22
rosuvastatin 10 mg tablet 10 mg PO DAILY #30 tabs 03/27/25
valsartan 160 mg tablet 320 mg (2 x 160 mg) PO DAILY #60 tabs 03/27/25
clonidine HCl 0.1 mg tablet 0.1 mg PO TID 06/13/25
hydralazine 50 mg tablet 50 mg PO TID 06/13/25
isosorbide mononitrate 60 mg tablet,extended release 24 hr 60 mg PO BID 06/13/25
nifedipine 30 mg tablet,extended release 30 mg PO HS 06/13/25
Review of Systems
-
History Source: Patient
A 12 point ROS was completed and negative except as noted: Yes
Constitutional: Denies Fever or Chills
Respiratory: Denies Cough or Trouble Breathing
Cardiac: Denies Chest Pain or Palpitations
Abdomen/GI: Denies Abdominal Pain, Nausea, Vomiting, Diarrhea or Constipated
Physical Exam
Vital Signs
Vital Signs
Temp Pulse Resp BP Pulse Ox
98.1 F 52 10 160/40 96
06/13/25 07:37 06/13/25 12:15 06/13/25 12:15 06/13/25 12:00 06/13/25 12:15
Physical Exam
General: Well Developed, Well Nourished and No Apparent Distress
HEENT: NormoCephalic, Anicteric, Moist mucous membranes and Atraumatic
Respiratory: Clear and Non Labored Respirations; No Wheezes, Rales or Rhonchi
Cardiac: S1/S2, Regular Rhythm and JVD; No Murmur
GI: Soft, Non Tender, Non Distended and Normal Bowel Sounds
Rectal: Deferred by Provider
Musculoskeletal: No Clubbing, No Cyanosis and Other (Trace / +1 piting edema bilateral lower extremities)
Skin: Warm and Dry; No Rash
Neuro: Awake, Alert, Oriented and Nonfocal/grossly intact
Psych: Calm
Laboratory Results
-
06/13/25 09:50
06/13/25 09:50
Laboratory Results
Total Bilirubin 0.8 mg/dl (0.2-1.3) 06/13/25 09:50
AST 24 U/L (14-36) 06/13/25 09:50
ALT 33 U/L (0-35) 06/13/25 09:50
Alkaline Phosphatase 47 U/L (38-126) 06/13/25 09:50
Data Reviewed
-
Lab Data: Labs Reviewed by me
Old Records: Reviewed
Impression/Plan
-
Uncontrolled Hypertension
-Blood Pressure is now controlled following administration of morning blood pressure medications
-Previously concern was raised in regards to left renal artery stenosis contributing to hypertension
-Consult Nephrology
-Consult Vascular Surgery for possible renal artery stent
-Patient reports shortness of breath with dyspnea on exertion - Check CXR and BNP to evaluate for possible volume overload contributing to elevated blood pressure
-Continue clonidine, hydralazine, isosorbide, nifedipine and valsartan
CKD Stage III
-Creatinine at baseline
ASCVD
-Continue atorvastatin
-Continue aspirin
Anemia of Chronic Disease
-Hgb at baseline
Hypothyroidism
-TSH within normal range in March 2025
-Continue levothyroxine
DVT proph: SCDs
Code Status: Full Code
--- NOTE | 2025-06-13 13:05 | W.CON.NEPH ---
Consultation
-
Date/Time Consultation Requested: 06/13/2025 at 10 PM
Date/Time Consultation Performed: 06/13/2025 at 12 PM
Requesting Provider: José Miguel Harrington
Performing Provider: Dr. Boothe
Reason for Consultation: Chronic kidney disease and accelerated hypertension
Medical History
-
Chief Complaint: Chronic kidney disease and accelerated hypertension
History of Present Illness:
This is an 84-year-old female with CKD 3A baseline more recently 1.3-1.5. She has significant hypertension on a multidrug regimen and was admitted to the hospital on multiple occasions with hypertensive emergency. She is quite few side effects to
higher doses of medications and particular medications to include facial swelling dizziness and nausea. There was a time she was on minoxidil and developed significant swelling.
She follows with Dr. Jayesh lujan chronic kidney disease and hypertension and has had many adjustments without any success to her very labile blood pressure.
Her blood pressure resides mostly at 170 systolic with a low diastolic blood pressure and erratically shoots up to above 200 systolic. This happens on a fairly regular basis.
She has a significant left renal artery stenosis with a left atrophic kidney with mild stenosis on the right. Has been contemplated to place a renal artery stent to help with her erratic blood pressure. For period time we are able to stabilize it
but it is right back to 200 systolic despite compliance with her medications.
She is overall a vasculopath with CAT scan from March 2025 which revealed extensive mixed density atherosclerotic plaque of the abdominal aorta. There is high-grade stenosis at the ostium of the left renal artery with an atrophic left kidney.
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
Renal consultation requested for accelerated hypertension in the setting of chronic kidney disease
Past Medical History
ASCVD (Carotid stenosis, Renal Artery Stenosis, PAD, TIA)
Aortic Stenosis
Hypertension
CKD III
Hypothyroidism
GERD
Cataracts
Aortic Valve Replacement
Right Rotator Cuff Repair
HALEY
Appendectomy
Sinus Surgery
Past Medical History: Other (Carotid stenosis, PAD, TIA, severe Aortic Stenosis, Hypertension, CKD IIIa, Hypothyroidism, GERD)
Social History
Tobacco: Non-Smoker
Alcohol: Occasional
Drug: None
Employment: Retired
Family History
Family History: CAD (Mother - of early-[place] at 57; Father - of [place] at 71)
Allergies / Home Medications
Allergy/AdvReac Type Severity Reaction Status Date / Time
No Known Allergies Allergy Verified 06/13/25 07:37
�Medication �Instructions �Recorded �Confirmed �Type
aspirin 81 mg chewable tablet 81 mg PO DAILY Blood Clot 01/01/15 06/13/25 History
Prevention/Tx
calcium 600 mg-D3 800 unit-mag 40 1 tab PO DAILY@1800 Supplement 01/01/15 06/13/25 History
bn-dfxa-pceh-vgea-boron chew
tablet (Caltrate 600-D Plus
Minerals)
coenzyme Q10 200 mg capsule 300 mg PO DAILY@1200 Supplement 01/01/15 06/13/25 History
glucosamine sulfate 2KCl 1,000 mg 1 tab PO DAILY Supplement 01/01/15 06/13/25 History
tablet
ascorbic acid (vitamin C) 500 mg 500 mg PO NOON Supplement 01/29/22 06/13/25 History
tablet (Vitamin C)
levothyroxine 50 mcg tablet 50 mcg PO DAILY Thyroid 01/29/22 06/13/25 History
multivitamin with folic acid 400 1 tab PO DAILY Supplement 01/29/22 06/13/25 History
mcg tablet (Tab-A-Majo)
rosuvastatin 10 mg tablet 10 mg PO DAILY #30 tabs 03/27/25 06/13/25 Rx
valsartan 160 mg tablet 320 mg (2 x 160 mg) PO DAILY #60 03/27/25 06/13/25 Rx
tabs
clonidine HCl 0.1 mg tablet 0.1 mg PO TID 06/13/25 06/13/25 History
hydralazine 50 mg tablet 50 mg PO TID 06/13/25 06/13/25 History
isosorbide mononitrate 60 mg 60 mg PO BID 06/13/25 06/13/25 History
tablet,extended release 24 hr
nifedipine 30 mg tablet,extended 30 mg PO HS 06/13/25 06/13/25 History
release
Review of Systems
-
No chest pain or shortness of breath.
All other systems: Negative unless noted
Physical Exam
Vital Signs
Vital Signs
Temp Pulse Resp BP Pulse Ox
98.1 F 52 10 160/40 96
06/13/25 07:37 06/13/25 12:15 06/13/25 12:15 06/13/25 12:00 06/13/25 12:15
Lab Results
WBC 6.3 10^3/uL (4.8-10.8) 06/13/25 09:50
RBC 3.18 10^6/uL (4.20-5.40) L 06/13/25 09:50
Hgb 9.9 g/dL (12.0-16.0) L 06/13/25 09:50
Hct 28.2 % (37.0-47.0) L 06/13/25 09:50
Plt Count 130 10^3/uL (130-400) 06/13/25 09:50
Sodium 137 mmol/L (135-145) 06/13/25 09:50
Potassium 4.3 mmol/L (3.5-5.1) 06/13/25 09:50
Chloride 103 mmol/L (98-107) 06/13/25 09:50
Carbon Dioxide 27 mmol/L (22-30) 06/13/25 09:50
BUN 45 mg/dl (7-17) H 06/13/25 09:50
Creatinine 1.3 mg/dL (0.6-1.0) H 06/13/25 09:50
eGFR 40.05 06/13/25 09:50
Glucose 126 mg/dl (70-99) H 06/13/25 09:50
Calcium 10.0 mg/dl (8.4-10.2) 06/13/25 09:50
Albumin 4.5 g/dl (3.5-5.0) 06/13/25 09:50
Physical Exam
General no acute distress
HEENT no cephalic atraumatic extraocular muscle intact no scleral icterus no JVD neck supple
lungs clear to auscultation bilateral
heart regular S1-S2 positive
abdomen soft nontender positive bowel sounds
extremities no edema pulses present bilateral
Neurologically nonfocal alert and oriented x 3
Skin no lesions no abrasions no petechiae
Psych normal affect no bizarre behavior
Data Reviewed
-
Labs: Labs Reviewed by me, Discussed with Physician, Discussed with Patient and Discussed with Family
Assessment/Plan
-
Impression
Hypertensive urgency
Chronic kidney disease stage IIIa baseline creatinine 1.3-1.5
Severe left renal artery stenosis with left atrophic kidney
Carotid stenosis
PAD
History of TIA
Severe Aortic Stenosis s/p replacement
Primary hypertension
Hypothyroidism
GERD
Plan
Current creatinine stable at 1.3
Blood pressure greater than 200 systolic on home readings. Blood pressure better controlled with medications given in the ER
With recurrent episodes of hypertensive urgency and the existence of severe left renal artery stenosis my suggestion to the patient and family was to proceed with left renal stenting despite an atrophic kidney and consideration of the most recent
studies including CORAL trial which favors medical management.
Certainly risks are involved as were discussed with the family by Dr. Mcconnell including contrast-induced nephropathy or atheroembolic AVRIL which I also reiterated
Vascular surgery is aware and will see the patient to discuss renal stenting.
Will provide IV bicarbonate prophylactic
Continue current blood pressure medicine regimen as ordered
.
--- NOTE | 2025-06-13 13:06 | CON.VAS ---
Addendum entered and electronically signed by Tomasz Hernandez MD 06/13/25 15:50:
Seen and evaluated with [facility]. Agree with findings as noted below. Patient seen in the emergency room. Known to me, recent outpatient visits. Known renal artery stenosis bilaterally. Had discussed prior with nephrology team, and at that time
felt to hold off on any renal artery intervention. Now patient presents with uncontrolled labile hypertension. We are being asked for renal artery angioplasty/stenting. Patient notes significant hypertension with some symptoms, intermittent
nausea/flushing. Remainder of history and exam as noted below. Agree with findings. 2+ palpable left brachial and bilateral femoral pulses.
Plan/ Patient with known bilateral renal artery stenosis. Discussed with her renal artery angioplasty/stenting. Discussed that I reviewed CT scan from March 2025 that demonstrates likely high-grade right renal artery stenosis, left side may be
flush or focally occluded or very severely stenotic but the thickness of the cuts precludes perfect evaluation. The left kidney size is decreased size as well. Discussed with patient and her family at the bedside rationale for renal artery
angioplasty/stenting. (In the setting of labile hypertension poorly controlled). Discussed with her procedure at length. Discussed potential femoral versus brachial artery access. Discussed anticipated outcomes. Discussed risk including but not
limited to bleeding, access site complications including bleeding/thrombosis/ischemic complications, kidney related complications including contrast-induced nephropathy and inadvertent renal injury or renal artery dissections/thromboses. Discussed
also the potential of inability to successfully angioplasty/stent 1 or both renal arteries. Discussed finally also the potential of successful angioplasty/stenting with refractory blood pressure despite successful outcome. She understands all
wishes to proceed. Keep n.p.o. after midnight. Planned procedure tomorrow.
Original Note:
Consultation
Consultation Request
Date/Time Consultation Performed: 06/13/2025 1500
Requesting Provider: José Miguel Harrington DO
Performing Provider: Richelle [facility], [facility] for Tomasz Hernandez M.D.
Reason for Consultation: Renal artery stenosis with uncontrollable hypertension
Medical History
-
Chief Complaint: Hypertension with nausea
History of Present Illness:
This is an 84-year-old female with significant past medical history for CKD 3A, aortic stenosis, hypothyroidism, hypertension, and peripheral arterial disease who presented to [facility] ED on 06/13/2025 with reports of nausea, flushed face, and
multiple elevated blood pressure readings at home. She is known to our service that she follows with Dr. Tomasz Hernandez M.D. in the outpatient setting for peripheral arterial disease, carotid stenosis, and known renal artery stenosis. Vascular surgery
has been consulted given known bilateral renal artery stenosis with uncontrolled hypertension despite a multidrug regimen. Currently patient denies headache but does endorse intermittent nausea with flushed face and home readings in the 200
systolic blood pressure range prompting ED evaluation.
Past Medical History
Past Medical History: HTN, Hypothyroidism and Other (Carotid stenosis, peripheral arterial disease, TIA, CKD 3, GERD, aortic stenosis)
Past Surgical History: Other (Cataracts, aortic valve replacement, right rotator cuff repair, HALEY, appendectomy, sinus surgery)
Social History
Tobacco: Non-Smoker
Alcohol: None
Allergies / Home Medications
Allergy/AdvReac Type Severity Reaction Status Date / Time
No Known Allergies Allergy Verified 06/13/25 07:37
�Medication �Instructions �Recorded �Confirmed �Type
aspirin 81 mg chewable tablet 81 mg PO DAILY Blood Clot 01/01/15 06/13/25 History
Prevention/Tx
calcium 600 mg-D3 800 unit-mag 40 1 tab PO DAILY@1800 Supplement 01/01/15 06/13/25 History
hg-bvim-uipq-vega-boron chew
tablet (Caltrate 600-D Plus
Minerals)
coenzyme Q10 200 mg capsule 300 mg PO DAILY@1200 Supplement 01/01/15 06/13/25 History
glucosamine sulfate 2KCl 1,000 mg 1 tab PO DAILY Supplement 01/01/15 06/13/25 History
tablet
ascorbic acid (vitamin C) 500 mg 500 mg PO NOON Supplement 01/29/22 06/13/25 History
tablet (Vitamin C)
levothyroxine 50 mcg tablet 50 mcg PO DAILY Thyroid 01/29/22 06/13/25 History
multivitamin with folic acid 400 1 tab PO DAILY Supplement 01/29/22 06/13/25 History
mcg tablet (Tab-A-Majo)
rosuvastatin 10 mg tablet 10 mg PO DAILY #30 tabs 03/27/25 06/13/25 Rx
valsartan 160 mg tablet 320 mg (2 x 160 mg) PO DAILY #60 03/27/25 06/13/25 Rx
tabs
clonidine HCl 0.1 mg tablet 0.1 mg PO TID 06/13/25 06/13/25 History
hydralazine 50 mg tablet 50 mg PO TID 06/13/25 06/13/25 History
isosorbide mononitrate 60 mg 60 mg PO BID 06/13/25 06/13/25 History
tablet,extended release 24 hr
nifedipine 30 mg tablet,extended 30 mg PO HS 06/13/25 06/13/25 History
release
Review of Systems
-
History Source: Patient
Constitutional: Reports Other (Flushed)
EENT: Reports No Symptoms
Respiratory: Reports No Symptoms
Cardiac: Reports No Symptoms
Abdomen/GI: Reports Nausea
: Reports No Symptoms
Musculoskeletal: Reports No Symptoms
Skin: Reports No Symptoms
Neurological: Reports No Symptoms; Denies Headache
Endocrine: Reports No Symptoms
Physical Exam
Vital Signs
Temp Pulse Resp BP Pulse Ox
98.1 F 52 10 160/40 96
06/13/25 07:37 06/13/25 12:15 06/13/25 12:15 06/13/25 12:00 06/13/25 12:15
Lab Results
06/13/25 09:50
06/13/25 09:50
Physical Exam
General: No Apparent Distress
HEENT: Normocephalic, Anicteric and Atraumatic
Respiratory: Non Labored Respirations
GI: Soft, Non Tender and Non Distended
Musculoskeletal: No Edema
Skin: Warm
Neuro: AO x 3
Pulses: Bilateral Femoral: +2
Assessment / Plan
-
Assessment: 85-year-old female with significant past medical history for bilateral renal artery stenosis with uncontrollable hypertension on multi drug regimen with accompanying nausea and flushed face
Plan:
Will proceed with bilateral renal angiogram with possible renal artery stenting tomorrow 06/14/[address] Tomasz Hernandez M.D., patient was evaluated with attending who reviewed risk first benefit and indication of procedure with patient and 2
daughters at bedside.
N.p.o. at midnight
A.m. blood work
--- NOTE | 2025-06-13 16:30 | PTCARENOTE ---
Received pt from ER via stretcher, accompanied by ER staff. Pt AAO x3, M AE well, ambulatory to bed, no c/o weakness/dizziness. Placed on telemetry:NSR. On room air- pulse ox 95%, no SOB noted. Abd soft, rounded, pt aware of NPO past midnight
06/14. Voided in BR upon arrival to unit. Oriented to 4east, currently resting in bed, family at bedside. Will continue to monitor.
[2025-06-13] MEDS: HEPARIN 5000 UNITS SC ×2 (16:47→23:55)
[2025-06-13] MEDS: LASIX 40 MG IV (17:30)
[2025-06-13] MEDS: FLUSH (NSS) 1 FLUSH IV (17:30)
[2025-06-13] MEDS: PROCARDIA XL (EXTENDED RELEASE) 30 MG PO (21:50)
[2025-06-14] VITALS (13 sets, daily range): BP systolic 123–158; BP diastolic 39–73; BMI 29.8
[2025-06-14] MEDS: SYNTHROID 50 MCG PO (05:45)
[2025-06-14 06:26] LABS: Hematocrit 29.7 % (37.0-47.0); Hemoglobin 10.2 g/dL (12.0-16.0); Mean Corp Hgb Conc. 34.3 g/dL (33.0-37.0); Mean Corpuscular Volume 88.1 fL (81.0-99.0); Platelet Count 133 10^3/uL (130-400); Red Cell Dist. Width 12.4 % (11.5-14.5)
[2025-06-14 06:46] LABS: Blood Urea Nitrogen 46 mg/dl (7-17); Calcium 10.2 mg/dl (8.4-10.2); Carbon Dioxide 28 mmol/L (22-30); Chloride 102 mmol/L (98-107); Estimated Creatinine Clearance 20 ml/min; Glucose 110 mg/dl (70-99); Potassium 4.4 mmol/L (3.5-5.1); Sodium 136 mmol/L (135-145); eGFR 33.73
[2025-06-14] MEDS: CRESTOR 10 MG PO (08:49)
[2025-06-14] MEDS: IMDUR (EXTENDED RELEASE) 60 MG PO ×2 (08:49→21:27)
[2025-06-14] MEDS: HEPARIN 5000 UNITS SC ×2 (08:49→23:51)
[2025-06-14] MEDS: CATAPRES 0.1 MG PO ×2 (08:49→16:15)
[2025-06-14] MEDS: LOW STRENGTH ASPIRIN 81 MG PO (08:49)
[2025-06-14] MEDS: APRESOLINE 50 MG PO ×3 (08:49→22:44)
[2025-06-14] MEDS: SODIUM BICARBONATE 1150 MEQ IV (10:46)
--- NOTE | 2025-06-14 11:37 | W.PN.NEPH.PH ---
Today's Communication / Plan
-
Left renal artery stenting
Assessment/Plan
-
Impression
Hypertensive urgency
Chronic kidney disease stage IIIa baseline creatinine 1.3-1.5
Severe left renal artery stenosis with left atrophic kidney
Carotid stenosis
PAD
History of TIA
Severe Aortic Stenosis s/p replacement
Primary hypertension
Hypothyroidism
GERD
Plan
Current creatinine stable at 1.3>1.5
Blood pressure greater than 200 systolic on home readings. Blood pressure better controlled with medications given in the ER
Pending renal artery stent today
Will provide IV bicarbonate prophylactic
Continue current blood pressure medicine regimen as ordered
-
-
Date of Service: June 14, 2025
CC / HPI / ROS
-
Chief Complaint:
Hypertensive urgency
History of Present Illness:
Chronic kidney disease with uncontrolled hypertension renal artery stenosis
Review of Systems:
No chest pain or shortness of breath
Labs
-
Labs:
WBC 6.3 10^3/uL (4.8-10.8) 06/14/25 05:59
RBC 3.37 10^6/uL (4.20-5.40) L 06/14/25 05:59
Hgb 10.2 g/dL (12.0-16.0) L 06/14/25 05:59
Hct 29.7 % (37.0-47.0) L 06/14/25 05:59
Plt Count 133 10^3/uL (130-400) 06/14/25 05:59
Sodium 136 mmol/L (135-145) 06/14/25 05:59
Potassium 4.4 mmol/L (3.5-5.1) 06/14/25 05:59
Chloride 102 mmol/L (98-107) 06/14/25 05:59
Carbon Dioxide 28 mmol/L (22-30) 06/14/25 05:59
BUN 46 mg/dl (7-17) H 06/14/25 05:59
Creatinine 1.5 mg/dL (0.6-1.0) H 06/14/25 05:59
eGFR 33.73 06/14/25 05:59
Glucose 110 mg/dl (70-99) H 06/14/25 05:59
Calcium 10.2 mg/dl (8.4-10.2) 06/14/25 05:59
Xod-O-Wijunidacxe Pept 2420 pg/ml 06/13/25 09:50
Albumin 4.5 g/dl (3.5-5.0) 06/13/25 09:50
Physical Exam
-
Vital Signs:
Vital Signs
Temp Pulse Resp BP Pulse Ox
98.3 F 70 15 147/43 97
06/14/25 11:18 06/14/25 11:20 06/14/25 11:20 06/14/25 11:20 06/14/25 11:20
Respiratory:: Bilateral: CTA
Lung Excursion:: Normal
Abdomen:: Soft
Bowel Sounds:: Normal
Extremity Edema:: None: Bilateral:
--- NOTE | 2025-06-14 11:40 | W.SUR.PREOP ---
Pre-Operative Surgical Note
-
I have examined this patient prior to the performance of the scheduled procedure.
The patient's condition is unchanged from the time of the current History and
Physical and the patient is able to undergo the scheduled procedure.
Procedure and risk/benefits/alternatives again reviewed with patient and her family at the bedside. They understand all wish to proceed.
--- NOTE | 2025-06-14 13:15 | W.SUR.POST ---
Surgical Immediate Post Op
Note
Pre Op Diagnosis: Uncontrolled hypertension, BL renal artery stenosis
Post Op Diagnosis: Uncontrolled hypertension, BL renal artery stenosis
Procedure Performed: Aortogram, BL renal angiogram, BL renal artery stenting
Primary Surgeon: Tomasz Hernandez MD
Secondary Surgeons: N/A
Anesthesia: MAC
Estimated Blood Loss: 2ml
Fluids: See anesthesia flow sheet
Drains/Shunts: N/A
Specimens/Cultures: None
Doppler/Duplex/Angio (Y/N): Y
Complications: None
Operative Findings: Successful endovascular intervention
--- NOTE | 2025-06-14 13:46 | OR.RPT ---
Operative Report
Operative Report
PROCEDURE DATE: 06/14/2025
Preoperative diagnosis:
1. Severe bilateral renal artery stenosis.
2. Refractory severely labile hypertension.
Postoperative diagnosis: Same
Procedure:
1. Duplex assisted cannulation of right common femoral artery.
2. Aortogram and selective bilateral renal artery angiography.
3. Bilateral renal artery angioplasty/stent placement (right side with [place] VBX 6 mm x 19 mm balloon mounted covered stent, left side with Atrium iCast 6 mm x 22 mm balloon mounted covered stent).
4. Right femoral angiogram and Fox Perclose percutaneous suture closure right common femoral artery.
Surgeon: Hernandez
Title Manager: None
Complications: None
Anesthesia: Local, sedation
Fluoroscopy:
18.7 min
98 mGy
28.61 Gy.cm2
Indications for procedure:
Severely labile hypertension with bilateral renal artery stenoses. Asked by cycle analyst for renal artery stenting. Risk/benefits/alternatives all fully discussed with the patient and family. They understood all wished to proceed.
Description of procedure:
Patient was identified, brought to the operating room. Placed on the table in the supine position. After the adequate administration of anesthesia, the patient was prepped and draped in the standard surgical fashion. A standard preoperative
timeout was undertaken and everybody was in agreement with the plan.
The right common femoral artery was accessed with a micropuncture kit under direct duplex ultrasound guidance. A 5 Lao sheath was then advanced over a 0.035 inch wire, and a vasquez's hook catheter was advanced into the abdominal aorta.
Aortogram was obtained. This demonstrated heavily calcified eccentric schroeder of the abdominal aorta. Right renal artery was patent with a fairly significant stenosis at the origin with continued stenosis about a centimeter into the artery and then
some poststenotic dilatation and normalization of the artery. Left renal artery did barely opacified. Very little flow was seen if at all. Left nephrogram could not be seen from the aortic injection.
At this point, I used the vasquez's a catheter and a flopping of hydrophilic wire and was able to finally cannulate the right renal artery. Right renal artery arteriogram was performed. Confirmed significant stenosis at the origin/proximally.
Good filling distally and nephrogram appeared appropriate. I gained wire access into the more distal renal artery branches. I tried to exchanged for a glide catheter so that I could then exchanged for a Dennis wire. However the glide catheter
resulted in loss of wire access in the renal artery and popping back out into the aorta. I therefore then was able to gain access again into the renal artery. I tried this time to advance the vasquez's a catheter, but the stenosis proved too
challenging and it would not advance. Therefore leaving the catheter tip in the renal artery, I was able to just advance a Dennis wire through this and gain distal wire purchase. Once I did this I then exchanged the vasquez's hook catheter out. I
then exchanged my sheath for a 6 Lao angled Ansell sheath. This was advanced through the origin of the renal artery carefully and I was able to get it into the renal artery beyond the stenosis. Angiogram confirmed I was in the true lumen. The
patient had been given 5000 units of intravenous heparin.
At this point, I advanced this through my sheath (which was just past the stenotic area) a [place] VBX 6 mm x 19 mm balloon mounted covered stent. I then positioned it such that the distal aspect of the stent was just beyond the stenosis, and
proximally about 1 to 2 mm was intentionally projecting out into the aorta. I then ballooned it into place. When I deflated the balloon, I then advanced my sheath to swallow the balloon. I then walked to the balloon delivery system off.
Angiogram demonstrated excellent result with widely patent stent now and excellent nephrogram. In addition, now I could see brisk reflux of contrast retrograde into the aorta (very poorly seen prior to placing the stent suggesting and confirming
the severity of the stenosis). At this point I withdrew my wires and catheters from the right renal artery.
Now using the vasquez's a catheter I tried to engage the left renal artery. With some difficulty using a flopping of hydrophilic wire I finally was able to wire into the left renal artery. I positioned the catheter at the origin and obtained a
selective left renal artery angiogram. This demonstrated a patent but relatively small left renal artery, severe stenosis at the origin as prior noted. And the nephrogram was relatively poor. The kidney was shrunken and the filling of the kidney
itself through all the little branches was very poor. However, given the patient's blood pressures use, I felt it might be worth trying to treat this anyway. (Not for salvage of kidney function but rather for blood pressure if it was playing a
role at all). Therefore at this point, I tried to exchange for a glide catheter, but lost wire access and had to regain it. Once I regained wire access, I tried to advance a Dennis wire but this also resulted in loss of wire access. Therefore I
regained the third time Glidewire access into the left renal artery. Once I did this I then exchanged the vasquez's a catheter out now for a CXI catheter. I was able to dotter this through the stenosis and into the more distal renal artery. I
then exchanged for a Dennis wire. I then advanced my sheath just up to the area of stenosis. I then advanced a 4 mm angioplasty balloon which was able to dotter into the left renal artery with some difficulty. Once positioned I then angioplastied
the stenosis. Angiogram demonstrated some improvement but still significant stenosis. Therefore I now advanced an Atrium iCast 6 mm x 22 mm balloon mounted covered stent. I was able to advance this into the renal artery, with the distal aspect
beyond the area of stenosis. Proximally I intentionally projected out into the aorta for a couple millimeters. I then ballooned it into place. I then advanced the sheath while deflating the balloon to swallow the balloon catheter. Angiogram
demonstrated excellent positioning of the stent with resolution of the stenosis. The nephrogram was still relatively poor but unchanged. No evidence of dissection or any other problem. At this point I was very satisfied thought that there is
nothing further to render here. The wires and catheters were withdrawn out of the left renal artery now. I exchanged back for a Dennis wire. I withdrew my sheath to the right external iliac artery. Right femoral angiogram demonstrated good
puncture in the right common femoral artery. I therefore then used a [employer] Perclose ercutaneous suture to close the right common femoral artery. Manual pressure was also applied. Hemostasis was fully achieved. She had a good femoral pulsation.
The patient tolerated procedure well. She was transported to recovery room in stable condition.
[2025-06-14] MEDS: TYLENOL 650 MG PO (14:08)
[2025-06-14] MEDS: PLAVIX 300 MG PO (14:08)
--- NOTE | 2025-06-14 15:52 | CM ---
Pt off floor today for renal angiogram/ stenting; returned at about 3PM. Will delay IA until tomorrow. IMM completed on 06/13/25
Plan: TBD
[2025-06-14] MEDS: NSS 1000 IV (16:12)
[2025-06-14] MEDS: HEPARIN SC (16:13)
--- NOTE | 2025-06-14 16:40 | W.PN.HOSP.TC ---
Today's Communication/Plan
-
watch BP
Assessment / Plan
Assessment / Plan
85-year-old female with high blood pressure. She contacted her presto log operator who made some adjustments but it remained high
Echo-03/26/2024-normal LV systolic function, ejection fraction 60 to 65%. Bioprosthetic arctic valve. No AI.
EKG-sinus rhythm left axis deviation
CVS: S1-S2 normal
Chest: CTA B/L
Abdomen: Soft, NT / Bowel sounds present
Extremities: femoral area , no bleeding, good pulses
# Uncontrolled hypertension
History of multidrug-resistant hypertension
Previously diagnosed with bilateral renal artery stenosis
Outpatient regimen-clonidine 0.1 mg 3 times daily, hydralazine 50 mg 3 times daily, nifedipine 30 mg at bedtime, valsartan 320 mg daily
# Bilateral renal artery stenosis status with poorly controlled multidrug resistant hypertension
Status post bilateral renal artery angioplasty with stent placement by Dr. Hernandez on 06/14/2025
# CKD stage III baseline creatinine 1.3-1.5-follow-up post surgery
# Hyperlipidemia-continue statin
# Anemia secondary to kidney disease
# Hypothyroidism-continue levothyroxine
# Peripheral artery disease-history of carotid stenosis 50 to 69% stenosis on the left and the right, renal artery stenosis
# History of TIA-on aspirin and statin
# History of aortic valve replacement-bioprosthetic aortic valve [facility] 2014
# Bilateral thyroid nodules-outpatient follow-up
# Diverticulosis
# DVT prophylaxis-JESSICA
# Full code
Discussed with vascular
D/W Nursing
D/W Multiple family members at bed side
Part of this note was created using voice recognition system. Occasional wrong word or��sound alike� substitutions may have inadvertently occurred due to the inherent limitations of voice recognition software. If noted kindly bring it to my
attention for correction.
Anticipated Discharge: Within 24 hours
Subjective/Interval History
-
Date of Service: June 14, 2025
Objective Data
-
Labs:
Laboratory Results
06/14/25
05:59
WBC 6.3
Hgb 10.2 L
Hct 29.7 L
Plt Count 133
Sodium 136
Potassium 4.4
Chloride 102
Carbon Dioxide 28
BUN 46 H
Creatinine 1.5 H
Glucose 110 H
Calcium 10.2
Vital Signs:
Vital Signs
Temp Pulse Resp BP Pulse Ox
97.4 F 47 18 147/45 97
06/14/25 16:06 06/14/25 16:06 06/14/25 16:06 06/14/25 16:06 06/14/25 16:06
I&O
06/13/25 06/14/25 06/15/25
06:59 06:59 06:59
Intake Total 480 / 480 75 / 75
Balance 480 / 480 75 / 75
[2025-06-14] MEDS: CATAPRES PO (22:37)
[2025-06-14] MEDS: PROCARDIA XL (EXTENDED RELEASE) 30 MG PO (22:45)
--- NOTE | 2025-06-15 02:11 | PTCARENOTE ---
Increased oozing to right groin site with slightly firm area felt around dressing. Gauze saturated but no drainage beyond that. No bruising notes. TT to Dr Multani, covering for vascular. Soft pressure applied for 20min as ordered. Patient
continues on bedrest overnight. Firmness resolved , no further drainage noted.
[2025-06-15 03:45] VITALS: BP 128/42
[2025-06-15 05:04] VITALS: BMI 30.3
[2025-06-15] MEDS: SYNTHROID 50 MCG PO (07:13)
[2025-06-15 07:20] VITALS: BP 131/44
[2025-06-15] MEDS: IMDUR (EXTENDED RELEASE) 60 MG PO (08:25)
[2025-06-15] MEDS: APRESOLINE 50 MG PO (08:25)
[2025-06-15] MEDS: CRESTOR 10 MG PO (08:25)
[2025-06-15] MEDS: PLAVIX 75 MG PO (08:26)
[2025-06-15] MEDS: LOW STRENGTH ASPIRIN 81 MG PO (08:26)
[2025-06-15] MEDS: CATAPRES 0.1 MG PO (08:26)
[2025-06-15] MEDS: HEPARIN 5000 UNITS SC (08:26)
--- NOTE | 2025-06-15 09:29 | W.PN.VS ---
Addendum entered and electronically signed by Chris Multani III, MD 06/15/25 14:16:
This patient was seen and examined in collaboration with BERNARD Campos. I agree with the history and physical exam as well as the assessment and plan.
Signed:
Chris Multani III, MD
Vascular Surgery
[facility]
Original Note:
Today's Communication / Plan
-
Patient seen and examined at bedside with Dr. Chris Multani III, below plan reviewed with attending.
Assessment/Plan
-
Assessment: 85 year old female POD#1 Duplex assisted cannulation of right common femoral artery. Aortogram and selective bilateral renal artery angiography. Bilateral renal artery angioplasty/stent placement (right side with [place] VBX 6 mm x 19 mm
balloon mounted covered stent, left side with Atrium iCast 6 mm x 22 mm balloon mounted covered stent). Right femoral angiogram and retickr Perclose percutaneous suture closure right common femoral artery.
Plan:
Can get OOB and ambulate as tolerated
Continue DAPT of Aspirin 81mg PO daily and Plavix 75mg PO daily
Outpatient follow up and US appointment placed in DC instructions
We will sing off please call with questions or concerns
Subjective Data
-
Date of Service: June 15, 2025
Patient seen and examined at bedside offers no complaints. Does endorse episode of scant oozing at right groin puncture in middle of night, but denies pain at groin or any other additional bleeding/oozing. Denies nausea, vomiting, fever, ABD pain,
or chills.
Objective Data
-
Vital Signs
Temp Pulse Resp BP Pulse Ox
98.3 F 67 16 131/44 95
06/15/25 07:20 06/15/25 07:20 06/15/25 07:20 06/15/25 07:20 06/15/25 07:20
Intake and Output
06/14/25 06/15/25 06/16/25
06:59 06:59 06:59
Intake Total 480 / 480 875 / 875
Balance 480 / 480 / 875
Intake:
Oral fluids 480 / 480
IV fluids (Total)
normal saline 75 / 75
Other:
How many times incontinent 1
MODERATE amount urine
Number of approximated MODERATE 3 1
amounts of urine
Number of approximated LARGE 3
amounts of urine
Calcium 10.2 mg/dl (8.4-10.2) 06/14/25 05:59
Magnesium 2.2 mg/dl (1.6-2.3) 06/13/25 09:50
Total Bilirubin 0.8 mg/dl (0.2-1.3) 06/13/25 09:50
AST 24 U/L (14-36) 06/13/25 09:50
ALT 33 U/L (0-35) 06/13/25 09:50
Alkaline Phosphatase 47 U/L (38-126) 06/13/25 09:50
Total Protein 7.0 g/dl (6.3-8.2) 06/13/25 09:50
Albumin 4.5 g/dl (3.5-5.0) 06/13/25 09:50
Physical Exam
-
No apparent distress, resting in bed comfortably
No dyspnea on room air
Right groin puncture site dry and intact, scant serosanguineous tinge to dressing, dressing removed by this provider, no evidence of hematoma, all surrounding compartments soft
Rigth foot warm
--- NOTE | 2025-06-15 09:50 | CM ---
IMM given and placed on chart. IA completed. Lives with dtr and son-in-law in 2 story home with no steps at the entrance. Independent in ADLs and IADLs. No hx of home O2 or SNF. Hx of HH with [facility] for BP monitoring. No insecurities identified.
Confirmed PCP, Rx insurance and drug coverage
There are 10 steps inside the home. She states she has trouble at times with the steps due to lightheadedness from BP medications
PCP: Ted Rene
Rx: [facility]
Plan: Home with no needs
[2025-06-15 09:51] LABS: Hematocrit 29.0 % (37.0-47.0); Hemoglobin 9.8 g/dL (12.0-16.0); Mean Corp Hgb Conc. 33.8 g/dL (33.0-37.0); Mean Corpuscular Volume 88.1 fL (81.0-99.0); Platelet Count 136 10^3/uL (130-400); Red Cell Dist. Width 12.6 % (11.5-14.5)
[2025-06-15 10:19] LABS: Blood Urea Nitrogen 36 mg/dl (7-17); Calcium 9.1 mg/dl (8.4-10.2); Carbon Dioxide 29 mmol/L (22-30); Chloride 103 mmol/L (98-107); Estimated Creatinine Clearance 21 ml/min; Glucose 139 mg/dl (70-99); Potassium 4.1 mmol/L (3.5-5.1); Sodium 136 mmol/L (135-145); eGFR 36.64
--- NOTE | 2025-06-15 11:27 | W.PN.NEPH.PH ---
Today's Communication / Plan
-
Follow BMP while inpatient
Blood pressure appears stable at this time
Assessment/Plan
-
Impression
Hypertensive urgency
Chronic kidney disease stage IIIa baseline creatinine 1.3-1.5
Severe left renal artery stenosis with left atrophic kidney
Carotid stenosis
PAD
History of TIA
Severe Aortic Stenosis s/p replacement
Primary hypertension
Hypothyroidism
GERD
Plan
Current creatinine stable at 1.4
Blood pressure greater than 200 systolic on home readings. Blood pressure better controlled with medications given in the ER
Status post bilateral renal artery stenting procedure on 06/14/25
Blood pressure appears reasonable today on current antihypertensives following stenting procedures
Continue current blood pressure medicine regimen as ordered
-
-
Date of Service: June 15, 2025
CC / HPI / ROS
-
Chief Complaint:
Hypertensive urgency
History of Present Illness:
Chronic kidney disease with uncontrolled hypertension renal artery stenosis
Creatinine stable 1.4
Blood pressure appears stable on current anti-htns
Status post bilateral renal artery stenting on 05/25/2020
Review of Systems:
Nonoliguric
No chest pain or shortness of breath
Labs
-
Labs:
WBC 7.0 10^3/uL (4.8-10.8) 06/15/25 09:42
RBC 3.29 10^6/uL (4.20-5.40) L 06/15/25 09:42
Hgb 9.8 g/dL (12.0-16.0) L 06/15/25 09:42
Hct 29.0 % (37.0-47.0) L 06/15/25 09:42
Plt Count 136 10^3/uL (130-400) 06/15/25 09:42
Sodium 136 mmol/L (135-145) 06/15/25 09:42
Potassium 4.1 mmol/L (3.5-5.1) 06/15/25 09:42
Chloride 103 mmol/L (98-107) 06/15/25 09:42
Carbon Dioxide 29 mmol/L (22-30) 06/15/25 09:42
BUN 36 mg/dl (7-17) H 06/15/25 09:42
Creatinine 1.4 mg/dL (0.6-1.0) H 06/15/25 09:42
eGFR 36.64 06/15/25 09:42
Glucose 139 mg/dl (70-99) H 06/15/25 09:42
Calcium 9.1 mg/dl (8.4-10.2) 06/15/25 09:42
Jyq-G-Blgzxbtfkww Pept 2420 pg/ml 06/13/25 09:50
Albumin 4.5 g/dl (3.5-5.0) 06/13/25 09:50
Physical Exam
-
Vital Signs:
Vital Signs
Temp Pulse Resp BP Pulse Ox
98.3 F 67 16 131/44 95
06/15/25 07:20 06/15/25 07:20 06/15/25 07:20 06/15/25 07:20 06/15/25 07:20
Respiratory:: Bilateral: CTA
Lung Excursion:: Normal
Abdomen:: Soft
Bowel Sounds:: Normal
Extremity Edema:: None: Bilateral:
[2025-06-15 11:57] VITALS: BP 123/43
--- NOTE | 2025-06-15 12:55 | W.PN.HOSP.TC ---
Addendum entered and electronically signed by Giovanni Thompson MD 06/15/25 13:46:
Dictation- [id number]
Original Note:
Today's Communication/Plan
-
Discharge
Assessment / Plan
Assessment / Plan
85-year-old female with high blood pressure. She contacted her flexographic press plate setter who made some adjustments but it remained high
Echo-03/26/2024-normal LV systolic function, ejection fraction 60 to 65%. Bioprosthetic arctic valve. No AI.
EKG-sinus rhythm left axis deviation
Anxious to go home
CVS: S1-S2 normal
Chest: CTA B/L
Abdomen: Soft, NT / Bowel sounds present
Extremities: femoral area , no bleeding, good pulses
# Uncontrolled hypertension
History of multidrug-resistant hypertension
Previously diagnosed with bilateral renal artery stenosis
Outpatient regimen-clonidine 0.1 mg 3 times daily, hydralazine 50 mg 3 times daily, nifedipine 30 mg at bedtime, valsartan 320 mg daily - continue all that.
# Bilateral renal artery stenosis status with poorly controlled multidrug resistant hypertension
Status post bilateral renal artery angioplasty with stent placement by Dr. Hernandez on 06/14/2025
# CKD stage III baseline creatinine 1.3-1.5- stable now
# Hyperlipidemia-continue statin
# Anemia secondary to kidney disease
# Hypothyroidism-continue levothyroxine
# Peripheral artery disease-history of carotid stenosis 50 to 69% stenosis on the left and the right, renal artery stenosis
# History of TIA-on aspirin and statin
# History of aortic valve replacement-bioprosthetic aortic valve [facility] 2014
# Bilateral thyroid nodules-outpatient follow-up
# Diverticulosis
# DVT prophylaxis-JESSICA
# Full code
Discussed with nephrology
D/W Nursing
D/W daughter and DELILAH at bed side
More than 30 minutes spent in discharge including
Final examination of the patient
Summarizing hospital stay
Instructions for continuing care to all relevant caregivers
Preparation of discharge records, prescriptions, and referral forms
Part of this note was created using voice recognition system. Occasional wrong word or��sound alike� substitutions may have inadvertently occurred due to the inherent limitations of voice recognition software. If noted kindly bring it to my
attention for correction.
Anticipated Discharge: Today
Subjective/Interval History
-
Date of Service: June 15, 2025
Objective Data
-
Labs:
Laboratory Results
06/15/25
09:42
WBC 7.0
Hgb 9.8 L
Hct 29.0 L
Plt Count 136
Sodium 136
Potassium 4.1
Chloride 103
Carbon Dioxide 29
BUN 36 H
Creatinine 1.4 H
Glucose 139 H
Calcium 9.1
Vital Signs:
Vital Signs
Temp Pulse Resp BP Pulse Ox
98.1 F 61 16 123/43 98
06/15/25 11:57 06/15/25 11:57 06/15/25 11:57 06/15/25 11:57 06/15/25 11:57
I&O
06/14/25 06/15/25 06/16/25
06:59 06:59 06:59
Intake Total 480 / 480 875 / 875 480 / 480
Balance 480 / 480 875 / 875 480 / 480
--- NOTE | 2025-06-15 13:10 | W.DS.TRANS ---
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
-
Discharge Instructions:
Discharge Diagnosis/Procedures Uncontrolled hypertension
Status post bilateral renal artery angioplasty
with stent placement by Dr. Hernandez on 06/14/2025
Chronic kidney disease
Hyperlipidemia
Anemia
Hypothyroidism
Peripheral artery disease
History of TIA
History of aortic valve replacement
Thyroid nodules
Diverticulosis
Diet 2 Gram Sodium
Activity No strenuous activity,As tolerated
Additional Activity follow post angiography instructions
Driving Restrictions No driving for 24 hours
Others Tests Your repeat renal artery ultrasound is scheduled
on 07/17/25 @ 1pm here at [facility]
Instructions:
Stand-Alone Forms: Vascular Surg Discharge Instr
Changes to Home Medications: Yes
Discharge Medications:
DC Medications w/original date entered in [employer]
aspirin 81 mg chewable tablet 81 mg PO DAILY Blood Clot Prevention/Tx 01/01/15
calcium 600 mg-D3 800 unit-mag 40 my-iczo-lrvu-vega-boron chew tablet (Caltrate 600-D Plus Minerals) 1 tab PO DAILY@1800 Supplement 01/01/15
coenzyme Q10 200 mg capsule 300 mg PO DAILY@1200 Supplement 01/01/15
glucosamine sulfate 2KCl 1,000 mg tablet 1 tab PO DAILY Supplement 01/01/15
ascorbic acid (vitamin C) 500 mg tablet (Vitamin C) 500 mg PO NOON Supplement 01/29/22
levothyroxine 50 mcg tablet 50 mcg PO DAILY Thyroid 01/29/22
multivitamin with folic acid 400 mcg tablet (Tab-A-Majo) 1 tab PO DAILY Supplement 01/29/22
clonidine HCl 0.1 mg tablet 0.1 mg PO TID Blood Pressure 06/13/25
hydralazine 50 mg tablet 50 mg PO TID Blood Pressure 06/13/25
isosorbide mononitrate 60 mg tablet,extended release 24 hr 60 mg PO BID Heart Disease/Condition 06/13/25
nifedipine 30 mg tablet,extended release 30 mg PO HS Blood Pressure 06/13/25
clopidogrel 75 mg tablet 75 mg PO DAILY Blood clot prevention/tx #90 tabs 06/15/25
rosuvastatin 10 mg tablet 10 mg PO DAILY High cholesterol #30 tabs 06/15/25
Home Medication Changes
Plavix is new
Valsartan held
Pending Results: No
--- NOTE | 2025-06-15 14:09 | CM ---
Pt discharged to Home with [facility].
--- NOTE | 2025-06-15 15:03 | VNURNOTE ---
Home Health Liaison met with patient and daughter at bedside to discuss [facility] nurse/therapy, visits, schedule and homebound status. Patient is agreeable and understands that visits at home will be 2-3 x per week to assess and teach medical
management.
Patient is aware that [facility] will contact them for start of care in 1-2 days after discharge from . Provided contact number for [facility].
[facility] referral completed in [facility].
--- NOTE | 2025-06-16 12:37 | CM ---
Call from [facility] post discharge noting SOC end of upcoming week
Call with dtr- would like to keep [facility] and in agreement with [facility] next week
Declined new provider search- update to [facility]
== END 2025-06-15 14:45 | disposition home health service (06) | DRG 675 ==
LOC: 4 EAST ACU 13:58
PROVIDERS: Physician Assistant Medical; ADMITTING PHYSICIAN Hospitalist; ATTENDING PHYSICIAN Hospitalist; CONSULT PHYSICIAN Internal Medicine Nephrology; CONSULT PHYSICIAN Surgery Vascular Surgery; EMERGENCY PHYSICIAN Emergency Medicine; FAMILY PHYSICIAN Family Medicine
PROC: B4181ZZ Fluoroscopy of Bilateral Renal Arteries using Low Osmolar Contrast (ICD-10-PCS; 2025-06-14)
PROC: B4101ZZ Fluoroscopy of Abdominal Aorta using Low Osmolar Contrast (ICD-10-PCS; 2025-06-14)
PROC: 04793DZ Dilation of Right Renal Artery with Intraluminal Device, Percutaneous Approach (ICD-10-PCS; 2025-06-14)
PROC: 047A3DZ Dilation of Left Renal Artery with Intraluminal Device, Percutaneous Approach (ICD-10-PCS; 2025-06-14)
DX: I70.1 Atherosclerosis of renal artery (principal); I12.9 Hypertensive chronic kidney disease with stage 1 through stage 4 chronic kidney disease, or unspecified chronic kidney disease; N18.31 Chronic kidney disease, stage 3a; E78.00 Pure hypercholesterolemia, unspecified; I25.10 Atherosclerotic heart disease of native coronary artery without angina pectoris; I73.9 Peripheral vascular disease, unspecified; I16.0 Hypertensive urgency; I1A.0 Resistant hypertension; D63.1 Anemia in chronic kidney disease; E03.9 Hypothyroidism, unspecified; E04.2 Nontoxic multinodular goiter; K57.30 Diverticulosis of large intestine without perforation or abscess without bleeding; I65.23 Occlusion and stenosis of bilateral carotid arteries; H26.9 Unspecified cataract; K21.9 Gastro-esophageal reflux disease without esophagitis; Z95.3 Presence of xenogenic heart valve; Z90.710 Acquired absence of both cervix and uterus; Z90.49 Acquired absence of other specified parts of digestive tract; Z82.49 Family history of ischemic heart disease and other diseases of the circulatory system; Z79.82 Long term (current) use of aspirin; Z79.890 Hormone replacement therapy; Z79.899 Other long term (current) drug therapy; Z86.73 Personal history of transient ischemic attack (TIA), and cerebral infarction without residual deficits
CPT/HCPCS: 36252; 37236; 37237; 71046; 80048; 80053; 83735; 83880; 85025; 85027; 86850; 86900; 86901; 93005; 99285; C1760; C1769; C1874; C1887; C1894; Q9967

== ENCOUNTER 2025-06-17 20:55 | Emergency (ER) | payer OTHER, SELFPAY ==
[2025-06-17 20:57] VITALS: BP 168/64
[2025-06-17 21:28] VITALS: BP 166/40
[2025-06-17] MEDS: APRESOLINE 50 MG PO (21:54)
[2025-06-17] MEDS: CATAPRES 0.1 MG PO (21:55)
[2025-06-17 21:56] VITALS: BMI 26.9
[2025-06-17 21:58] VITALS: BP 141/41
[2025-06-17 22:00] VITALS: BP 144/41
[2025-06-17 22:30] VITALS: BP 143/62
[2025-06-17 23:00] VITALS: BP 143/43
--- NOTE | 2025-06-17 23:01 | ED.GENMED ---
History of Present Illness
General
Chief Complaint: Blood Pressure Problem
Source: patient
Exam Limitations: none
Time Seen by Provider: 06/17/25 21:29
Nursing documentation reviewed up to this point in time: agreed with
History of Present Illness
History of Present Illness:
Patient with history of uncontrolled hypertension, status post renal artery stent placement last week, discharged in the hospital 2 days ago, returns to ED secondary to elevated blood pressure readings at home, with systolic blood pressure greater
than 200 with 'not feeling well and blurred vision'. Denies headache. Denies dizziness. Denies difficulty with speech. Denies difficulty with swallowing. Denies loss of sensation or weakness. Denies difficulty with ambulation. Patient states
that she has been feeling intermittently with the symptoms, including during recent hospitalization. Denies loss of appetite.
Past History
Past History
ED Past Medical History: HTN and Hypercholesterolemia
ED Past Surgical History: None
Social History
Tobacco: Non-smoker
Alcohol: None
Drug: None
Personal:
Living: with family
Employment: Retired
Review of Systems
Review of Systems
Allergies reviewed?: Yes
Constitutional: Reports no symptoms
EENT: Reports no symptoms
Respiratory: Reports no symptoms; Denies trouble breathing
Cardiac: Reports no symptoms; Denies chest pain
ABD/GI: Reports no symptoms
Musculoskeletal: Reports no symptoms
Skin: Reports no symptoms
Neurological: Reports no symptoms; Denies dizzy, headache or weakness
Phy Exam
Physical Exam
Physical Exam:
Physical Exam
General: no apparent distress, not acutely ill. afebrile. hypertensive
Head: nc/at. eomi
Neck: supple. no meningeal signs.
Heart: s1/s2 regular rate and rhythm
Lungs: no acute respiratory distress. clear bilaterally
Abdomen: normal bowel sounds. not tender.
Neuro: alert and oriented x 3. no focal neurological deficits. normal speech. normal gait
Skin: no rash
Psychiatric: well kept. interactive and cooperative
Extremities: no edema. no calf tenderness.
Course
Orders/Labs/Results
Orders:
Orders
06/17/25 21:51
Clonidine [Catapres] 0.1 mg PO NOW STA
HydrALAZINE [Apresoline] 50 mg PO NOW STA
Vital Signs
Initial and Last Documented VS:
Initial Vital Signs
Temp Pulse Resp BP Pulse Ox
98.5 F 64 20 168/64 97
06/17/25 20:57 06/17/25 20:57 06/17/25 20:57 06/17/25 20:57 06/17/25 20:57
Last Documented Vital Signs
Temp Pulse Resp BP Pulse Ox
98.5 F 60 10 143/43 96
06/17/25 20:57 06/17/25 23:00 06/17/25 23:00 06/17/25 23:00 06/17/25 23:08
MDM/Problems Addressed
MDM/Problems Addressed:
Patient given evening blood pressure medications upon arrival and observed, with improvement of blood pressure. Discussed with on-call nephrology, Dr. Siddiqui. Recommends restarting patient's valsartan, which has been discontinued during recent
hospitalization, along with having patient/family contact nephrology office tomorrow with blood pressure readings and further discussion. Patient and family expressed understanding at time of discharge
*Pulse Oximetry
SaO2: 96
Oxygen Mode of Delivery: Room air
Patient hypoxic: no
*Critical Care Note
Total Time (30-74mins, 75-104mins- exclusive of procedures): Not Applicable
ED Attending Note
-
Portions of this chart may have been created with voice recognition software.� Occasional wrong word or��sound alike� substitutions may have occurred due to the inherent limitations of voice recognition software.
Discharge Plan
Departure
Patient Disposition: Home (Routine Discharge)
Date of Disposition: 06/17/25
Time of Disposition: 23:01
Patient with high blood pressure during this ER visit?: Yes
Condition: Fair
Discharge Problem:
Hypertension
Instructions: High Blood Pressure (DC)
Prescriptions:
No Action
aspirin 81 MG tablet,chewable
81 mg PO DAILY
glucosamine sulfate 2KCl 1,000 MG tablet
1 tab PO DAILY
Caltrate 600-D Plus Minerals 1 EACH tablet,chewable
1 tab PO DAILY@1800
Patient Comments:
ON HOLD PER PT
coenzyme Q10 200 MG capsule
300 mg PO DAILY@1200
ascorbic acid (vitamin C) [Vitamin C] 500 MG tablet
500 mg PO NOON
levothyroxine 50 MCG tablet
50 mcg PO DAILY
multivitamin with folic acid [Tab-A-Majo] 1 TABLET tablet
1 tab PO DAILY
clonidine HCl 0.1 mg tablet
0.1 mg PO TID
nifedipine 30 mg tablet extended release
30 mg PO HS
isosorbide mononitrate 60 mg tablet extended release 24 hr
60 mg PO BID
hydralazine 50 mg tablet
50 mg PO TID
clopidogrel 75 mg Tablet
75 mg PO DAILY Qty: 90 0RF
rosuvastatin 10 mg Tablet
10 mg PO DAILY Qty: 30 0RF
Rx Instructions:
ON HOLD PER PT
Referrals:
UNKNOWN - PT NOT,INTERVIEWE [Family Provider]
Symone Mcconnell MD [Active, Nephrology]
Activity Restrictions/Additional Instructions:
As discussed, please follow-up with your mitering machine operator for continual evaluation and treatment. Please call office tomorrow afternoon to discuss your blood pressure readings at home. In the meantime, please restart valsartan as prescribed previously.
Interventions
Interventions:
*Risk Screen - Suicide Last Done: 06/17/25 20:57
*General Assessment Last Done: 06/17/25 20:57
*Neglect/Abuse Screening Last Done: 06/17/25 20:57
*ED- Fall Risk Assessment Last Done: 06/17/25 23:19
*ED COVID-19 Vaccine History Last Done: 06/17/25 20:57
*Nursing Disposition Last Done: 06/17/25 23:19
ED- Cardiac Assessment Last Done: 06/17/25 21:56
ED- Neurological Assessment Last Done: 06/17/25 21:56
ED- Pulmonary Assessment Last Done: 06/17/25 21:56
Discharge Date and Time
Discharge Date/Time: 06/17/25 23:30
Print Language: PERSIAN
== END 2025-06-17 23:30 | disposition home or self-care (01) ==
LOC: EMR 20:55
PROVIDERS: EMERGENCY PHYSICIAN Emergency Medicine
DX: I10 Essential (primary) hypertension (principal); E78.00 Pure hypercholesterolemia, unspecified; Z79.82 Long term (current) use of aspirin; Z79.02 Long term (current) use of antithrombotics/antiplatelets
CPT/HCPCS: 99283

== ENCOUNTER → 2025-07-11 12:06 | Outpatient (REF) | payer OTHER, SELFPAY ==
[2025-07-11 13:05] VITALS: BP 146/72; BP_SYST 78
== END ==
LOC: RADI 12:06
PROVIDERS: ATTENDING PHYSICIAN Otolaryngology; FAMILY PHYSICIAN Nurse Practitioner Family
DX: E04.1 Nontoxic single thyroid nodule (principal)
CPT/HCPCS: 10005; 88173

== ENCOUNTER → 2025-07-17 12:32 | Outpatient (REF) | payer OTHER, SELFPAY | LOC: RAD 12:32 | PROVIDERS: ATTENDING PHYSICIAN Surgery Vascular Surgery; FAMILY PHYSICIAN Nurse Practitioner Family | DX: I70.1 Atherosclerosis of renal artery (principal) | CPT/HCPCS: 93975 ==

== ENCOUNTER → 2025-09-19 08:30 | Outpatient (REF) | payer OTHER, SELFPAY | LOC: PAVMRI 08:30 | PROVIDERS: ATTENDING PHYSICIAN Internal Medicine Rheumatology; FAMILY PHYSICIAN Family Medicine | DX: M06.09 Rheumatoid arthritis without rheumatoid factor, multiple sites (principal) | CPT/HCPCS: 73221 ==